=== PATIENT | female | born 1995 | race Caucasian/White ===

== ENCOUNTER 2020-09-04 13:47 | Outpatient (CLI) | payer OTHER ==
[2020-09-04 15:04] LABS: BASOPHILS % (AUTO) 0.3 %; EOSINOPHILS # (AUTO) 0.2 10^3/uL (0.0-0.7); EOSINOPHILS % (AUTO) 3.4 %; HGB - HEMOGLOBIN 13.4 g/dL (12.0-16.0); LYMPHOCYTES # (AUTO) 1.4 10^3/uL (1.5-3.5); LYMPHOCYTES % (AUTO) 21.9 %; MEAN CORPUSCULAR HEMOGLOBIN 31.7 pg (27.0-31.0); MEAN CORPUSCULAR HGB CONC 34.4 g/dL (32.0-36.0); MEAN CORPUSCULAR VOLUME 92.2 fL (81.0-99.0); MEAN PLATELET VOLUME 10.9 fL (7.9-10.8); MONOCYTES # (AUTO) 0.8 10^3/uL (0.0-1.0); MONOCYTES % (AUTO) 12.1 %; PLT - PLATELET COUNT 138 10^3/uL (130-450); RED BLOOD COUNT 4.23 10^6/uL (4.20-5.40); RED CELL DISTRIBUTION WIDTH 12.2 % (12.0-15.0); WHITE BLOOD COUNT 6.4 x10^3/uL (4.8-10.8)
[2020-09-04 15:14] VITALS: BP 115/74
[2020-09-04 15:16] LABS: ALBUMIN/GLOBULIN RATIO 0.8 (1.0-2.2); BILIRUBIN,TOTAL 0.5 mg/dL (0.2-1.0); CREATININE 0.5 mg/dL (0.4-1.0); TOTAL PROTEIN 6.6 g/dL (6.7-8.2); URIC ACID 3.9 mg/dL (2.6-7.2)
[2020-09-04 15:26] LABS: CREATININE,URINE 82.7 mg/dL; PROTEIN/CREATININE RATIO,URINE 0.1 (<=0.2)
--- NOTE | 2020-09-04 18:19 | PREOP HISTORY & PHYSICAL ---
DATE OF SERVICE: 09/04/2020 Physician: Brian Salas MD IDENTIFICATION: Patient is a 25-year-old, G1, P0 female whose EDC is 10/11. This makes her 34 weeks and 5 days. She states she had early visits for determination of her due date. Her OB records are not available to us at this particular time. CHIEF COMPLAINT: Headache. HISTORY OF PRESENT ILLNESS: Patient states over the last week she has had difficulty with headaches. Denies any scotoma at this time. She has tried Tylenol without any success. She called the clinic at [facility] and was told to come to the nearest OB department for evaluation. She denies any history of preeclampsia or hypertension during her . She has been noted to have platele ts, the lowest of which was in the 140s. She relates that her blood sugar test was normal. She is c urrently not on a glucometer, blood sugar medicine or diet. This would also be confirmatory to this. The remainder of her labs are not available. PAST MEDICAL HISTORY: Patient denies any hypertensive, diabetic, cardiac disease. She does have ast hma. 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 She was told at that time that she would need to have section. ALLERGIES 1. PENICILLIN. 2. SULFA. CURRENT MEDICATIONS 1. vitamins. 2. She is currently taking Zoloft 100 mg. 3. AeroChamber. 4. She also takes fluconazole. 5. Albuterol. 6. Pepcid. 7. Vitamin D. 8. ProAir. HABITS: Patient denies use of alcohol, tobacco, street or addictive drugs. SOCIAL HISTORY: Patient is a housewife. She lives with her who is active duty [employer]. PHYSICAL EXAMINATION VITAL SIGNS: Blood pressure on admission was 130/90, however, the remainder of them all have remaine d in the 120s over 70s. heart strip has been noted to be reactive. GENERAL: Patient is a well-developed, well-nourished female, in no acute distress at this time. HEENT: Pupils equal, round. Extraocular muscles are intact. CARDIOVASCULAR: Regular rate and rhythm without murmurs. LUNGS: Lung oates are clear without rales or wheezes. ABDOMEN: Gravid, nontender. DTRs are within normal limits. LABORATORY DATA: Creatinine is 0.5, uric acid is 3.9. ALT, AST are also noted to be normal. Hemogl obin is 13.4, hematocrit 39.0, and platelets were 139, white count is 6.4, protein-creatinine ratio i s 0.1. IMPRESSION: A 34-week gestation without evidence of preeclampsia. PLAN: We will have patient follow up with her OB providers in [place]. Should she have recurrence , she may be seen here. TD: 09/04/2020 16:43
--- NOTE | 2020-09-28 10:52 | PROCEDURE REPORT ---
- HPI Diagnosis/Indication for NST: Other (head ach) Current EDU 10/11/20 Gestation 34 Weeks and 5 Days 1 Para 0 Vital Signs Heart Rate 79 09/04/20 14:00 Respiratory Rate 18 09/04/20 14:00 Blood Pressure 125/84 H 09/04/20 14:00 O2 Saturation 98 09/04/20 14:00 Temperature 36.5 C 09/04/20 14:03 Heart Rate 70 09/04/20 15:00 Respiratory Rate 18 09/04/20 15:00 Blood Pressure 115/74 09/04/20 15:00 O2 Saturation 98 09/04/20 15:00 - NST Procedure NST Procedure Start Date 09/04/20 Start Time 13:58 Stop Time 14:58 Vibroacoustic Stimulation Used No Patient States Movement Yes: decreased today - Results and Plan Findings/Impression: reactive NST BP 120's/70's Plan: Labs and BP normal. KATZ improved with tylenol. send home with precautions.
== END 2020-09-04 16:45 | disposition home or self-care (01) ==
LOC: WFO 13:47 → FBP 13:49 → WFO 16:45
PROVIDERS: ATTEND Obstetrics & Gynecology
DX: O99.891 Other specified diseases and conditions complicating pregnancy (principal); R51.9 Headache, unspecified; Z79.899 Other long term (current) drug therapy
CPT/HCPCS: 36415; 59025; 80053; 82570; 84156; 84550; 85025; 99213

== ENCOUNTER 2020-09-26 15:04 | Outpatient (CLI) | payer OTHER ==
[2020-09-26 16:20] LABS: BASOPHILS % (AUTO) 0.4 %; EOSINOPHILS # (AUTO) 0.2 10^3/uL (0.0-0.7); EOSINOPHILS % (AUTO) 3.3 %; HGB - HEMOGLOBIN 13.6 g/dL (12.0-16.0); LYMPHOCYTES # (AUTO) 1.5 10^3/uL (1.5-3.5); LYMPHOCYTES % (AUTO) 21.2 %; MEAN CORPUSCULAR HEMOGLOBIN 32.1 pg (27.0-31.0); MEAN CORPUSCULAR HGB CONC 34.7 g/dL (32.0-36.0); MEAN CORPUSCULAR VOLUME 92.5 fL (81.0-99.0); MEAN PLATELET VOLUME 11.4 fL (7.9-10.8); MONOCYTES # (AUTO) 0.7 10^3/uL (0.0-1.0); MONOCYTES % (AUTO) 10.4 %; NEUTROPHILS # (AUTO) 4.5 10^3/uL (1.5-6.6); NEUTROPHILS % (AUTO) 64.3 %; PLT - PLATELET COUNT 127 10^3/uL (130-450); RED BLOOD COUNT 4.24 10^6/uL (4.20-5.40); RED CELL DISTRIBUTION WIDTH 12.5 % (12.0-15.0)
[2020-09-26 16:30] LABS: ALBUMIN/GLOBULIN RATIO 0.9 (1.0-2.2); BILIRUBIN,TOTAL 0.5 mg/dL (0.2-1.0); CREATININE 0.7 mg/dL (0.4-1.0); TOTAL PROTEIN 6.5 g/dL (6.7-8.2); URIC ACID 4.6 mg/dL (2.6-7.2)
[2020-09-26 16:58] LABS: CREATININE,URINE 96.7 mg/dL; PROTEIN/CREATININE RATIO,URINE 0.1 (<=0.2)
[2020-09-26 17:05] VITALS: BP 111/76
--- NOTE | 2020-10-05 18:37 | PROVIDER PROGRESS NOTE ---
- HPI Chief Complaint: Other Current : Current EDU 10/11/20 Gestation 37 Weeks and 6 Days 1 Para 0 Vital Signs Temperature 98.2 F 09/26/20 15:05 Temperature 98.2 F 09/26/20 15:18 Heart Rate 73 09/26/20 17:00 Respiratory Rate 17 09/26/20 16:39 Blood Pressure 111/76 09/26/20 17:00 O2 Saturation 100 09/26/20 17:00 - Exam GEN: NAD HEENT: NCAT CV: RRR RESP: CTAB ABD: gravid, S&NT/NR EXT: WWP SVE /2 station EFM : 130 mod kisha 15x15 accels no decels TOCO: irreg - Procedures OB Procedure Performed: NST NST Procedure: NST Procedure Start Date 09/26/20 Start Time 15:11 Stop Time 14:58 Patient States Movement Yes EFM: 130 mod kisha 15x15 accels no decel TOCO: Irreg - Plan Plan: Pt is a 25 yo at 37+ 6 wga here for eval of KATZ and found to be cherie. Followed by provider in [place]. Had been told that she needed a CS since childhood after undergoing ureteral implantation procedures. The plan was to present in [place] for CS. She also reports thrombocytopenia. She had a headache that was not resolving with tylenol and patient presents for PIH assessment. I reviewed 197 pages of her outside records. While it is not clear that patient needs to have a CS, [facility]FM offered a CS. They do recommend delivering at a facility with in-house Urology. Plts have been on the low end of normal at every assessment. They are low on today's labs at 127 PE as above BPs wnl KATZ resolved. Noted to be cherie on monitor No change in SVE Cat I tracing Recommend helicopter coverage in the event that she has to be transferred for delivery Reassured regarding PIH labs No evidence of active labor at present Reviewed warning signs and plans for transfer is she presents in active labor. Voiced understanding DC to home
== END 2020-09-26 17:40 | disposition home or self-care (01) ==
LOC: WFO 15:04 → FBP 15:06 → WFO 17:40
PROVIDERS: ATTEND Obstetrics & Gynecology
DX: O99.891 Other specified diseases and conditions complicating pregnancy (principal); G44.89 Other headache syndrome; O99.113 Other diseases of the blood and blood-forming organs and certain disorders involving the immune mechanism complicating pregnancy, third trimester; D69.6 Thrombocytopenia, unspecified; Z3A.37 37 weeks gestation of pregnancy; Z87.448 Personal history of other diseases of urinary system
CPT/HCPCS: 36415; 59025; 80053; 82570; 83615; 84156; 84450; 84550; 85025; 99214

== ENCOUNTER 2022-09-25 11:00 | Emergency (ER) | payer OTHER ==
[2022-09-25] MEDS ORDERED: SODIUM CHLORIDE 0.9% 1,000 ML IV STA ×2 (11:23→13:45)
[2022-09-25 11:43] LABS: GLUCOSE, URINE (UA) NEGATIVE (NEGATIVE); KETONES,URINE (UA) >=80 mg/dL (NEGATIVE); LEUKOCYTE ESTERASE, URINE NEGATIVE (NEGATIVE); NITRITE,URINE NEGATIVE (NEGATIVE); OCCULT BLOOD,URINE NEGATIVE (NEGATIVE); PROTEIN,URINE 30 mg/dL (NEGATIVE); UROBILINOGEN,URINE 0.2 (NORMAL) E.U./dL (NORMAL)
[2022-09-25 11:44] LABS: CLARITY,URINE CLEAR (CLEAR)
--- OUTSIDE RECORDS SUMMARY | 2022-09-25 11:46 | EXTERNAL MEDICAL SUMMARY RPT | Continuity of Care Document ---
:1995 Author Organization [facility] Address [address] [place] [address] Phone Care Team Providers Name Role Phone Gustavo Díaz Unavailable Unavailable Allergies No information. Encounters No information. Functional Status No information. Immunizations No information. Medications date description facility [id number] [facility] Problems No information. Procedures No information. Results/Labs test date author facility value unit interpret ation Result panel 1 (unknown) (no (unknown) (unknown) (no value) (units (unk nown) date) unknown) (unknown) (no (unknown) (unknown) (no value) (units (unk nown) date) unknown) (unknown) (no (unknown) (unknown) [place], [place] (units ( unknown) date) [id number] unknown) (unknown) (no (unknown) (unknown) Draft (units (unkno wn) date) unknown) (unknown) (no (unknown) (unknown) [facility] (units (unknown) date) Office Visit unknown) (unknown) (no (unknown) (unknown) [facility] (units ([facility] date[facility] unknown) (unknown) (no (unknown) (unknown) (no value) (units (unk nown) date) unknown) (unknown) (no (unknown) (unknown) 07/02/22 (units (unkno wn) date) unknown) (unknown) (no (unknown) (unknown) 27-year-old (units (un known) date) female presents unknown) to follow-up on anxiety and depression. We saw her (unknown) (no (unknown) (unknown) [id number] (units (unkno wn) date) unknown) (unknown) (no (unknown) (unknown) Age/Sex: 27 / F (units (unknown) date) Date of Service: unknown) (unknown) (no (unknown) (unknown) Allergies (units (unkn own) date) unknown) (unknown) (no (unknown) (unknown) Anxiety (units (unkno wn) date) unknown) (unknown) (no (unknown) (unknown) Anxiety and (units (unk nown) date) depression:? unknown) Doing relatively well on regimen.? We discussed options (unknown) (no (unknown) (unknown) Attending Dr: (units ( unknown) date) Gustavo BRICENO unknown) (unknown) (no (unknown) (unknown) Chief Complaint (units (unknown) date) unknown) (unknown) (no (unknown) (unknown) Chief Complaint: (units (unknown) date) Follow-up unknown) anxiety/depressio n (unknown) (no (unknown) (unknown) Counseled on (units (u nknown) date) administration/ri unknown) sks/benefits/side effects of medication.? Patient (unknown) (no (unknown) (unknown) : 1995 (units (unknown) date) Acct:[id number] unknown) (unknown) (no (unknown) (unknown) Depression (units (unk nown) date) unknown) (unknown) (no (unknown) (unknown) Dept at (units (unkno wn) date) . unknown) (unknown) (no (unknown) (unknown) Details: (units (unkno wn) date) unknown) (unknown) (no (unknown) (unknown) Documented By: (units (unknown) date) Gustavo Díaz unknown) 07/02/22 1415 (unknown) (no (unknown) (unknown) [place] until (units ( unknown) date) she has completed unknown) the program.? I advised she consider working (unknown) (no (unknown) (unknown) GERD (units (unkno wn) date) (gastroesophageal unknown) reflux disease) (2019) (unknown) (no (unknown) (unknown) HPI (units (unkno wn) date) unknown) (unknown) (no (unknown) (unknown) Insomnia (units (unkno wn) date) unknown) (unknown) (no (unknown) (unknown) Insomnia:? (units (unkn own) date) Discussed options unknown) and agreed to switch from gabapentin to trazodone.? (unknown) (no (unknown) (unknown) Intake (units (unkno wn) date) unknown) (unknown) (no (unknown) (unknown) Irregular (units (unkn own) date) menstrual unknown) bleeding (10/2021) (unknown) (no (unknown) (unknown) Loc: [facility] (units (unkno wn) date) unknown) (unknown) (no (unknown) (unknown) Medical History (units (unknown) date) (Reviewed unknown) 06/18/22 @ 14:32 by JANAK Melendez) (unknown) (no (unknown) (unknown) Moderate (units (unkno wn) date) intermittent unknown) asthma (unknown) (no (unknown) (unknown) Moderate (units (unkno wn) date) persistent asthma unknown) (unknown) (no (unknown) (unknown) PFSH (units (unkno wn) date) unknown) (unknown) (no (unknown) (unknown) Parent, patient (units (unknown) date) were present in unknown) their home in [place], [place]. (unknown) (no (unknown) (unknown) Patient (units (unkno wn) date) consented to unknown) receive services via teleheath. (unknown) (no (unknown) (unknown) Patient: (units (unkno wn) date) Elizabeth Chery unknown) MR#: [id number] (unknown) (no (unknown) (unknown) Penicillins (units (un known) date) Allergy (Unknown, unknown) Verified 05/01/22 14:04) (unknown) (no (unknown) (unknown) Pristiq than (units (u nknown) date) when she was on unknown) venlafaxine XR. Overall feels her anxiety and (unknown) (no (unknown) (unknown) Pristiq. Plan (units ( unknown) date) was for a unknown) follow-up visit in about 4-6 weeks which is still (unknown) (no (unknown) (unknown) Provider was (units (u nknown) date) present in her unknown) office in [place], [place]. (unknown) (no (unknown) (unknown) Real-time (units (unkn own) date) synchronous unknown) services were performed using the [employer] platform. (unknown) (no (unknown) (unknown) Reason For Visit (units (unknown) date) unknown) (unknown) (no (unknown) (unknown) Signed By: (units (unk nown) date) unknown) (unknown) (no (unknown) (unknown) Skin wound from (units (unknown) date) surgical incision unknown) (unknown) (no (unknown) (unknown) Smoking Status: (units (unknown) date) Never smoker unknown) (unknown) (no (unknown) (unknown) States that (units (un known) date) there was an unknown) instance not long ago when their basement light was (unknown) (no (unknown) (unknown) Sulfa (units (unkno wn) date) (Sulfonamide unknown) Antibiotics) Allergy (Unknown, Verified 05/01/22 14:04) (unknown) (no (unknown) (unknown) This note may (units ( unknown) date) have been all or unknown) partially generated using voice recognition (unknown) (no (unknown) (unknown) Tobacco + (units (unkn own) date) Substance Use unknown) (unknown) (no (unknown) (unknown) Tobacco Status (units (unknown) date) unknown) (unknown) (no (unknown) (unknown) Visit Reasons: (units (unknown) date) VIDEO MED F/U unknown) (unknown) (no (unknown) (unknown) alcohol intake: (units (unknown) date) never unknown) (unknown) (no (unknown) (unknown) already has a (units ( unknown) date) follow-up unknown) appointment scheduled on July 02 and we will re- (unknown) (no (unknown) (unknown) and agreed to (units ( unknown) date) continue unknown) regimen.? She will continue psychotherapy with Jennifer (unknown) (no (unknown) (unknown) and not (units (unkno wn) date) interrupting her unknown) sleep; notes that her difficulty sleeping seems to her (unknown) (no (unknown) (unknown) appointment. (units (u nknown) date) unknown) (unknown) (no (unknown) (unknown) are seeing her (units ( unknown) date) for a sooner unknown) follow-up than anticipated. Patient actually states (unknown) (no (unknown) (unknown) depression are (units (unknown) date) reasonably well unknown) controlled right now. She is still not sleeping (unknown) (no (unknown) (unknown) evaluate at that (units (unknown) date) time.? Follow-up unknown) as needed for problems prior to the (unknown) (no (unknown) (unknown) found on when (units ( unknown) date) they had not been unknown) down there so suspected an intruder; outside of (unknown) (no (unknown) (unknown) have occurred. (units (unknown) date) If there are any unknown) questions, please contact the Medical Records (unknown) (no (unknown) (unknown) interested in (units (u nknown) date) switching from unknown) gabapentin to trazodone. Her baby is sleeping well (unknown) (no (unknown) (unknown) last about 3 (units (u nknown) date) weeks ago. At unknown) that time we switched from venlafaxine XR to (unknown) (no (unknown) (unknown) may occur. (units (unk nown) date) Occasional unknown) wrong-word or 'sound-alike' substitutions may have (unknown) (no (unknown) (unknown) occurred due to (units (unknown) date) the inherent unknown) limitations of voice recognition software. Please (unknown) (no (unknown) (unknown) read the note (units ( unknown) date) carefully and unknown) recognize, using context, where these substitutions (unknown) (no (unknown) (unknown) regarding (units (unkn own) date) intruders.? unknown) (unknown) (no (unknown) (unknown) scheduled, but (units (unknown) date) it looks like unknown) today's visit had all ready been scheduled so we (unknown) (no (unknown) (unknown) second hand (units (un known) date) exposure: No unknown) (unknown) (no (unknown) (unknown) software. (units (unkn own) date) Although every unknown) effort is made to edit content, sign erector errors (unknown) (no (unknown) (unknown) substance use (units ( unknown) date) type: does not unknown) use (unknown) (no (unknown) (unknown) switched to the (units (unknown) date) high dose of unknown) Pristiq. Does note slightly less sweating on the (unknown) (no (unknown) (unknown) that she feels (units (unknown) date) quite good. She unknown) believes that perhaps at the time of the last (unknown) (no (unknown) (unknown) this, no history (units (unknown) date) of having been a unknown) victim of a break in. (unknown) (no (unknown) (unknown) to be related to (units (unknown) date) a ?paranoia? unknown) about the possibility of intruders in the house. (unknown) (no (unknown) (unknown) to feel the (units (un known) date) beneficial unknown) effects and that she continues to feel good having (unknown) (no (unknown) (unknown) visit she simply (units (unknown) date) had not been on unknown) the high dose of venlafaxine XR for long enough (unknown) (no (unknown) (unknown) well. She does (units (unknown) date) not feel that the unknown) gabapentin has really helped much and is (unknown) (no (unknown) (unknown) with a therapist (units (unknown) date) for longer-term unknown) psychotherapy to address her issues with worry Result panel 2 (unknown) (no (unknown) (unknown) (no value) (units (unk nown) date) unknown) (unknown) (no (unknown) (unknown) Medications: (units (u nknown) date) unknown) (unknown) (no (unknown) (unknown) (no value) (units (unk nown) date) unknown) (unknown) (no (unknown) (unknown) [facility] (units ( unknown) date) [id number] unknown) (unknown) (no (unknown) (unknown) Draft (units (unkno wn) date) unknown) (unknown) (no (unknown) (unknown) Family Practice (units (unknown) date) Office Visit unknown) (unknown) (no (unknown) (unknown) [facility]units ([facility] date[facility] unknown) (unknown) (no (unknown) (unknown) If 1 tab (units (unkno wn) date) ineffective, may unknown) take 2 tabs at bedtime as needed for sleep 50 mg (unknown) (no (unknown) (unknown) (no value) (units (unk nown) date) unknown) (unknown) (no (unknown) (unknown) 07/02/22 (units (unkno wn) date) unknown) (unknown) (no (unknown) (unknown) 27-year-old (units (un known) date) female presents unknown) to follow-up on anxiety and depression. We saw her (unknown) (no (unknown) (unknown) [id number] (units (unkno wn) date) unknown) (unknown) (no (unknown) (unknown) Age/Sex: 27 / F (units (unknown) date) Date of Service: unknown) (unknown) (no (unknown) (unknown) Allergies (units (unkn own) date) unknown) (unknown) (no (unknown) (unknown) Anxiety (units (unkno wn) date) unknown) (unknown) (no (unknown) (unknown) Anxiety and (units (unk nown) date) depression:? unknown) Doing relatively well on regimen.? We discussed options (unknown) (no (unknown) (unknown) Assessment + (units (u nknown) date) Plan unknown) (unknown) (no (unknown) (unknown) Attending Dr: (units ( unknown) date) Gustavo BRICENO unknown) (unknown) (no (unknown) (unknown) Changed (units (unkno wn) date) unknown) (unknown) (no (unknown) (unknown) Chief Complaint (units (unknown) date) unknown) (unknown) (no (unknown) (unknown) Chief Complaint: (units (unknown) date) Follow-up unknown) anxiety/depressio n (unknown) (no (unknown) (unknown) Counseled on (units (u nknown) date) administration/ri unknown) sks/benefits/side effects of medication.? Patient (unknown) (no (unknown) (unknown) : 1995 (units (unknown) date) Acct:[id number] unknown) (unknown) (no (unknown) (unknown) Depression (units (unk nown) date) unknown) (unknown) (no (unknown) (unknown) Dept at (units (unkno wn) date) . unknown) (unknown) (no (unknown) (unknown) Details: (units (unkno wn) date) unknown) (unknown) (no (unknown) (unknown) Documented By: (units (unknown) date) Gustavo Díaz unknown) 07/02/22 1415 (unknown) (no (unknown) (unknown) [place] until (units ( unknown) date) she has completed unknown) the program.? I advised she consider working (unknown) (no (unknown) (unknown) From trazodone (units (unknown) date) unknown) (unknown) (no (unknown) (unknown) GERD (units (unkno wn) date) (gastroesophageal unknown) reflux disease) (2019) (unknown) (no (unknown) (unknown) HPI (units (unkno wn) date) unknown) (unknown) (no (unknown) (unknown) Insomnia (units (unkno wn) date) unknown) (unknown) (no (unknown) (unknown) Insomnia:? (units (unkn own) date) Discussed options unknown) and agreed to switch from gabapentin to trazodone.? (unknown) (no (unknown) (unknown) Intake (units (unkno wn) date) unknown) (unknown) (no (unknown) (unknown) Irregular (units (unkn own) date) menstrual unknown) bleeding (10/2021) (unknown) (no (unknown) (unknown) L ear worse, (units (u nknown) date) seems to have unknown) hearing problem no noise exposure. noticed. (unknown) (no (unknown) (unknown) Loc: [facility] (units (unkno wn) date) unknown) (unknown) (no (unknown) (unknown) Medical History (units (unknown) date) (Reviewed unknown) 06/18/22 @ 14:32 by JANAK Melendez) (unknown) (no (unknown) (unknown) Moderate (units (unkno wn) date) intermittent unknown) asthma (unknown) (no (unknown) (unknown) Moderate (units (unkno wn) date) persistent asthma unknown) (unknown) (no (unknown) (unknown) PFSH (units (unkno wn) date) unknown) (unknown) (no (unknown) (unknown) PO BEDTIME PRN (units (unknown) date) 10 tabs 3RF sleep unknown) (unknown) (no (unknown) (unknown) Parent, patient (units (unknown) date) were present in unknown) their home in [place], [place]. (unknown) (no (unknown) (unknown) Patient (units (unkno wn) date) consented to unknown) receive services via teleheath. (unknown) (no (unknown) (unknown) Patient: (units (unkno wn) date) Elizabeth Chery unknown) MR#: [id number] (unknown) (no (unknown) (unknown) Penicillins (units (un known) date) Allergy (Unknown, unknown) Verified 05/01/22 14:04) (unknown) (no (unknown) (unknown) Pristiq than (units (u nknown) date) when she was on unknown) venlafaxine XR. Overall feels her anxiety and (unknown) (no (unknown) (unknown) Pristiq. Plan (units ( unknown) date) was for a unknown) follow-up visit in about 4-6 weeks which is still (unknown) (no (unknown) (unknown) Provider was (units (u nknown) date) present in her unknown) office in [place], [place]. (unknown) (no (unknown) (unknown) Real-time (units (unkn own) date) synchronous unknown) services were performed using the [employer] platform. (unknown) (no (unknown) (unknown) Reason For Visit (units (unknown) date) unknown) (unknown) (no (unknown) (unknown) Signed By: (units (unk nown) date) unknown) (unknown) (no (unknown) (unknown) Skin wound from (units (unknown) date) surgical incision unknown) (unknown) (no (unknown) (unknown) Smoking Status: (units (unknown) date) Never smoker unknown) (unknown) (no (unknown) (unknown) States that (units (un known) date) there was an unknown) instance not long ago when their basement light was (unknown) (no (unknown) (unknown) Sulfa (units (unkno wn) date) (Sulfonamide unknown) Antibiotics) Allergy (Unknown, Verified 05/01/22 14:04) (unknown) (no (unknown) (unknown) This note may (units ( unknown) date) have been all or unknown) partially generated using voice recognition (unknown) (no (unknown) (unknown) To trazodone 100 (units (unknown) date) mg (2 x 50 mg) PO unknown) BEDTIME PRN 180 tabs 1RF sleep (unknown) (no (unknown) (unknown) Tobacco + (units (unkn own) date) Substance Use unknown) (unknown) (no (unknown) (unknown) Tobacco Status (units (unknown) date) unknown) (unknown) (no (unknown) (unknown) Visit Reasons: (units (unknown) date) VIDEO MED F/U unknown) (unknown) (no (unknown) (unknown) alcohol intake: (units (unknown) date) never unknown) (unknown) (no (unknown) (unknown) already has a (units ( unknown) date) follow-up unknown) appointment scheduled on July 02 and we will re- (unknown) (no (unknown) (unknown) and agreed to (units ( unknown) date) continue unknown) regimen.? She will continue psychotherapy with Jennifer (unknown) (no (unknown) (unknown) and not (units (unkno wn) date) interrupting her unknown) sleep; notes that her difficulty sleeping seems to her (unknown) (no (unknown) (unknown) appointment. (units (u nknown) date) unknown) (unknown) (no (unknown) (unknown) are seeing her (units ( unknown) date) for a sooner unknown) follow-up than anticipated. Patient actually states (unknown) (no (unknown) (unknown) depression are (units (unknown) date) reasonably well unknown) controlled right now. She is still not sleeping (unknown) (no (unknown) (unknown) due for pap will (units (unknown) date) schedule wwe/pap unknown) (unknown) (no (unknown) (unknown) evaluate at that (units (unknown) date) time.? Follow-up unknown) as needed for problems prior to the (unknown) (no (unknown) (unknown) found on when (units ( unknown) date) they had not been unknown) down there so suspected an intruder; outside of (unknown) (no (unknown) (unknown) have occurred. (units (unknown) date) If there are any unknown) questions, please contact the Medical Records (unknown) (no (unknown) (unknown) interested in (units (u nknown) date) switching from unknown) gabapentin to trazodone. Her baby is sleeping well (unknown) (no (unknown) (unknown) last about 3 (units (u nknown) date) weeks ago. At unknown) that time we switched from venlafaxine XR to (unknown) (no (unknown) (unknown) may occur. (units (unk nown) date) Occasional unknown) wrong-word or 'sound-alike' substitutions may have (unknown) (no (unknown) (unknown) occurred due to (units (unknown) date) the inherent unknown) limitations of voice recognition software. Please (unknown) (no (unknown) (unknown) read the note (units ( unknown) date) carefully and unknown) recognize, using context, where these substitutions (unknown) (no (unknown) (unknown) regarding (units (unkn own) date) intruders.? unknown) (unknown) (no (unknown) (unknown) scheduled, but (units (unknown) date) it looks like unknown) today's visit had all ready been scheduled so we (unknown) (no (unknown) (unknown) second hand (units (un known) date) exposure: No unknown) (unknown) (no (unknown) (unknown) software. (units (unkn own) date) Although every unknown) effort is made to edit content, sign erector errors (unknown) (no (unknown) (unknown) substance use (units ( unknown) date) type: does not unknown) use (unknown) (no (unknown) (unknown) switched to the (units (unknown) date) high dose of unknown) Pristiq. Does note slightly less sweating on the (unknown) (no (unknown) (unknown) that she feels (units (unknown) date) quite good. She unknown) believes that perhaps at the time of the last (unknown) (no (unknown) (unknown) this, no history (units (unknown) date) of having been a unknown) victim of a break in. (unknown) (no (unknown) (unknown) to be related to (units (unknown) date) a ?paranoia? unknown) about the possibility of intruders in the house. (unknown) (no (unknown) (unknown) to feel the (units (un known) date) beneficial unknown) effects and that she continues to feel good having (unknown) (no (unknown) (unknown) visit she simply (units (unknown) date) had not been on unknown) the high dose of venlafaxine XR for long enough (unknown) (no (unknown) (unknown) well. She does (units (unknown) date) not feel that the unknown) gabapentin has really helped much and is (unknown) (no (unknown) (unknown) with a therapist (units (unknown) date) for longer-term unknown) psychotherapy to address her issues with worry Result panel 3 (unknown) (no (unknown) (unknown) (no value) (units (unk nown) date) unknown) (unknown) (no (unknown) (unknown) Medications: (units (u nknown) date) unknown) (unknown) (no (unknown) (unknown) Orders: (units (unkno wn) date) unknown) (unknown) (no (unknown) (unknown) (no value) (units (unk nown) date) unknown) (unknown) (no (unknown) (unknown) [facility] [place] (units ( unknown) date) [id number] unknown) (unknown) (no (unknown) (unknown) Draft (units (unkno wn) date) unknown) (unknown) (no (unknown) (unknown) Family Practice (units (unknown) date) Office Visit unknown) (unknown) (no (unknown) (unknown) [facility]units ([facility] date[facility] unknown) (unknown) (no (unknown) (unknown) If 1 tab (units (unkno wn) date) ineffective, may unknown) take 2 tabs at bedtime as needed for sleep 50 mg (unknown) (no (unknown) (unknown) (no value) (units (unk nown) date) unknown) (unknown) (no (unknown) (unknown) (1) Hearing (units (un known) date) loss: unknown) (unknown) (no (unknown) (unknown) 07/02/22 (units (unkno wn) date) unknown) (unknown) (no (unknown) (unknown) 27-year-old (units (un known) date) female presents unknown) to follow-up on anxiety and depression. We saw her (unknown) (no (unknown) (unknown) [id number] (units (unkno wn) date) unknown) (unknown) (no (unknown) (unknown) Age/Sex: 27 / F (units (unknown) date) Date of Service: unknown) (unknown) (no (unknown) (unknown) Allergies (units (unkn own) date) unknown) (unknown) (no (unknown) (unknown) Anxiety (units (unkno wn) date) unknown) (unknown) (no (unknown) (unknown) Anxiety and (units (unk nown) date) depression:? unknown) Doing relatively well on regimen.? We discussed options (unknown) (no (unknown) (unknown) Assessment + (units (u nknown) date) Plan unknown) (unknown) (no (unknown) (unknown) Attending Dr: (units ( unknown) date) Gustavo BRICENO unknown) (unknown) (no (unknown) (unknown) Changed (units (unkno wn) date) unknown) (unknown) (no (unknown) (unknown) Chief Complaint (units (unknown) date) unknown) (unknown) (no (unknown) (unknown) Chief Complaint: (units (unknown) date) Follow-up unknown) anxiety/depressio n (unknown) (no (unknown) (unknown) Counseled on (units (u nknown) date) administration/ri unknown) sks/benefits/side effects of medication.? Patient (unknown) (no (unknown) (unknown) : 1995 (units (unknown) date) Acct:[id number] unknown) (unknown) (no (unknown) (unknown) Depression (units (unk nown) date) unknown) (unknown) (no (unknown) (unknown) Dept at (units (unkno wn) date) . unknown) (unknown) (no (unknown) (unknown) Details: (units (unkno wn) date) unknown) (unknown) (no (unknown) (unknown) Documented By: (units (unknown) date) Gustavo Díaz unknown) 07/02/22 1415 (unknown) (no (unknown) (unknown) [place] until (units ( unknown) date) she has completed unknown) the program.? I advised she consider working (unknown) (no (unknown) (unknown) From trazodone (units (unknown) date) unknown) (unknown) (no (unknown) (unknown) GERD (units (unkno wn) date) (gastroesophageal unknown) reflux disease) (2019) (unknown) (no (unknown) (unknown) HPI (units (unkno wn) date) unknown) (unknown) (no (unknown) (unknown) Insomnia (units (unkno wn) date) unknown) (unknown) (no (unknown) (unknown) Insomnia:? (units (unkn own) date) Discussed options unknown) and agreed to switch from gabapentin to trazodone.? (unknown) (no (unknown) (unknown) Intake (units (unkno wn) date) unknown) (unknown) (no (unknown) (unknown) Irregular (units (unkn own) date) menstrual unknown) bleeding (10/2021) (unknown) (no (unknown) (unknown) L ear worse, (units (u nknown) date) seems to have unknown) hearing problem no noise exposure. noticed. (unknown) (no (unknown) (unknown) Loc: [facility] (units (unkno wn) date) unknown) (unknown) (no (unknown) (unknown) Medical History (units (unknown) date) (Reviewed unknown) 06/18/22 @ 14:32 by JANAK Melendez) (unknown) (no (unknown) (unknown) Moderate (units (unkno wn) date) intermittent unknown) asthma (unknown) (no (unknown) (unknown) Moderate (units (unkno wn) date) persistent asthma unknown) (unknown) (no (unknown) (unknown) PFSH (units (unkno wn) date) unknown) (unknown) (no (unknown) (unknown) PO BEDTIME PRN (units (unknown) date) 10 tabs 3RF sleep unknown) (unknown) (no (unknown) (unknown) Parent, patient (units (unknown) date) were present in unknown) their home in [place], [place]. (unknown) (no (unknown) (unknown) Patient (units (unkno wn) date) consented to unknown) receive services via teleheath. (unknown) (no (unknown) (unknown) Patient: (units (unkno wn) date) Elizabeth Chery unknown) MR#: [id number] (unknown) (no (unknown) (unknown) Penicillins (units (un known) date) Allergy (Unknown, unknown) Verified 05/01/22 14:04) (unknown) (no (unknown) (unknown) Pristiq than (units (u nknown) date) when she was on unknown) venlafaxine XR. Overall feels her anxiety and (unknown) (no (unknown) (unknown) Pristiq. Plan (units ( unknown) date) was for a unknown) follow-up visit in about 4-6 weeks which is still (unknown) (no (unknown) (unknown) Provider was (units (u nknown) date) present in her unknown) office in [place], [place]. (unknown) (no (unknown) (unknown) Real-time (units (unkn own) date) synchronous unknown) services were performed using the [employer] platform. (unknown) (no (unknown) (unknown) Reason For Visit (units (unknown) date) unknown) (unknown) (no (unknown) (unknown) Referral (units (unkno wn) date) Audiology [id number] unknown) - Unspecified hearing loss, unspecified ear (unknown) (no (unknown) (unknown) Referrals (units (unkn own) date) unknown) (unknown) (no (unknown) (unknown) Signed By: (units (unk nown) date) unknown) (unknown) (no (unknown) (unknown) Skin wound from (units (unknown) date) surgical incision unknown) (unknown) (no (unknown) (unknown) Smoking Status: (units (unknown) date) Never smoker unknown) (unknown) (no (unknown) (unknown) States that (units (un known) date) there was an unknown) instance not long ago when their basement light was (unknown) (no (unknown) (unknown) Sulfa (units (unkno wn) date) (Sulfonamide unknown) Antibiotics) Allergy (Unknown, Verified 05/01/22 14:04) (unknown) (no (unknown) (unknown) This note may (units ( unknown) date) have been all or unknown) partially generated using voice recognition (unknown) (no (unknown) (unknown) To trazodone 100 (units (unknown) date) mg (2 x 50 mg) PO unknown) BEDTIME PRN 180 tabs 1RF sleep (unknown) (no (unknown) (unknown) Tobacco + (units (unkn own) date) Substance Use unknown) (unknown) (no (unknown) (unknown) Tobacco Status (units (unknown) date) unknown) (unknown) (no (unknown) (unknown) Visit Reasons: (units (unknown) date) VIDEO MED F/U unknown) (unknown) (no (unknown) (unknown) alcohol intake: (units (unknown) date) never unknown) (unknown) (no (unknown) (unknown) already has a (units ( unknown) date) follow-up unknown) appointment scheduled on July 02 and we will re- (unknown) (no (unknown) (unknown) and agreed to (units ( unknown) date) continue unknown) regimen.? She will continue psychotherapy with Jennifer (unknown) (no (unknown) (unknown) and not (units (unkno wn) date) interrupting her unknown) sleep; notes that her difficulty sleeping seems to her (unknown) (no (unknown) (unknown) appointment. (units (u nknown) date) unknown) (unknown) (no (unknown) (unknown) are seeing her (units ( unknown) date) for a sooner unknown) follow-up than anticipated. Patient actually states (unknown) (no (unknown) (unknown) depression are (units (unknown) date) reasonably well unknown) controlled right now. She is still not sleeping (unknown) (no (unknown) (unknown) due for pap will (units (unknown) date) schedule wwe/pap unknown) (unknown) (no (unknown) (unknown) evaluate at that (units (unknown) date) time.? Follow-up unknown) as needed for problems prior to the (unknown) (no (unknown) (unknown) found on when (units ( unknown) date) they had not been unknown) down there so suspected an intruder; outside of (unknown) (no (unknown) (unknown) have occurred. (units (unknown) date) If there are any unknown) questions, please contact the Medical Records (unknown) (no (unknown) (unknown) interested in (units (u nknown) date) switching from unknown) gabapentin to trazodone. Her baby is sleeping well (unknown) (no (unknown) (unknown) last about 3 (units (u nknown) date) weeks ago. At unknown) that time we switched from venlafaxine XR to (unknown) (no (unknown) (unknown) may occur. (units (unk nown) date) Occasional unknown) wrong-word or 'sound-alike' substitutions may have (unknown) (no (unknown) (unknown) occurred due to (units (unknown) date) the inherent unknown) limitations of voice recognition software. Please (unknown) (no (unknown) (unknown) read the note (units ( unknown) date) carefully and unknown) recognize, using context, where these substitutions (unknown) (no (unknown) (unknown) regarding (units (unkn own) date) intruders.? unknown) (unknown) (no (unknown) (unknown) scheduled, but (units (unknown) date) it looks like unknown) today's visit had all ready been scheduled so we (unknown) (no (unknown) (unknown) second hand (units (un known) date) exposure: No unknown) (unknown) (no (unknown) (unknown) software. (units (unkn own) date) Although every unknown) effort is made to edit content, sign erector errors (unknown) (no (unknown) (unknown) substance use (units ( unknown) date) type: does not unknown) use (unknown) (no (unknown) (unknown) switched to the (units (unknown) date) high dose of unknown) Pristiq. Does note slightly less sweating on the (unknown) (no (unknown) (unknown) that she feels (units (unknown) date) quite good. She unknown) believes that perhaps at the time of the last (unknown) (no (unknown) (unknown) this, no history (units (unknown) date) of having been a unknown) victim of a break in. (unknown) (no (unknown) (unknown) to be related to (units (unknown) date) a ?paranoia? unknown) about the possibility of intruders in the house. (unknown) (no (unknown) (unknown) to feel the (units (un known) date) beneficial unknown) effects and that she continues to feel good having (unknown) (no (unknown) (unknown) visit she simply (units (unknown) date) had not been on unknown) the high dose of venlafaxine XR for long enough (unknown) (no (unknown) (unknown) well. She does (units (unknown) date) not feel that the unknown) gabapentin has really helped much and is (unknown) (no (unknown) (unknown) with a therapist (units (unknown) date) for longer-term unknown) psychotherapy to address her issues with worry Result panel 4 (unknown) (no (unknown) (unknown) (no value) (units (unk nown) date) unknown) (unknown) (no (unknown) (unknown) Medications: (units (u nknown) date) unknown) (unknown) (no (unknown) (unknown) Orders: (units (unkno wn) date) unknown) (unknown) (no (unknown) (unknown) Qualifiers: (units (un known) date) unknown) (unknown) (no (unknown) (unknown) Status: Acute (units ( unknown) date) unknown) (unknown) (no (unknown) (unknown) (no value) (units (unk nown) date) unknown) (unknown) (no (unknown) (unknown) GenoaDEDRA alvarez (units ( unknown) date) [id number] unknown) (unknown) (no (unknown) (unknown) Depression Type: (units (unknown) date) major depressive unknown) disorder Major depression recurrence: (unknown) (no (unknown) (unknown) Draft (units (unkno wn) date) unknown) (unknown) (no (unknown) (unknown) Family Practice (units (unknown) date) Office Visit unknown) (unknown) (no (unknown) (unknown) [facility] ([facility] unknown) (unknown) (no (unknown) (unknown) If 1 tab (units (unkno wn) date) ineffective, may unknown) take 2 tabs at bedtime as needed for sleep 50 mg (unknown) (no (unknown) (unknown) Insomnia type: (units (unknown) date) unspecified unknown) Qualified Code(s): G47.00 - Insomnia, (unknown) (no (unknown) (unknown) (no value) (units (unk nown) date) unknown) (unknown) (no (unknown) (unknown) (1) Anxiety: (units (u nknown) date) unknown) (unknown) (no (unknown) (unknown) (2) Insomnia: (units ( unknown) date) unknown) (unknown) (no (unknown) (unknown) (3) Depression: (units (unknown) date) unknown) (unknown) (no (unknown) (unknown) (4) Hearing (units (un known) date) loss: unknown) (unknown) (no (unknown) (unknown) 07/02/22 (units (unkno wn) date) unknown) (unknown) (no (unknown) (unknown) 27-year-old (units (un known) date) female presents unknown) to follow-up on anxiety, depressed mood, insomnia. (unknown) (no (unknown) (unknown) [id number] (units (unkno wn) date) unknown) (unknown) (no (unknown) (unknown) Affect: normal (units (unknown) date) affect unknown) (unknown) (no (unknown) (unknown) Age/Sex: 27 / F (units (unknown) date) Date of Service: unknown) (unknown) (no (unknown) (unknown) All systems (units (un known) date) reviewed + are unknown) unremarkable except as noted in HPI and below (unknown) (no (unknown) (unknown) Allergies (units (unkn own) date) unknown) (unknown) (no (unknown) (unknown) Anxiety (units (unkno wn) date) unknown) (unknown) (no (unknown) (unknown) Anxiety and (units (unk nown) date) depression: Doing unknown) relatively well on regimen. We discussed options (unknown) (no (unknown) (unknown) Appearance: (units (un known) date) grossly normal unknown) (unknown) (no (unknown) (unknown) Assessment + (units (u nknown) date) Plan unknown) (unknown) (no (unknown) (unknown) Attending Dr: (units ( unknown) date) Gustavo BRICENO unknown) (unknown) (no (unknown) (unknown) Attitude: (units (unkn own) date) cooperative unknown) (unknown) (no (unknown) (unknown) Changed (units (unkno wn) date) unknown) (unknown) (no (unknown) (unknown) Chief Complaint (units (unknown) date) unknown) (unknown) (no (unknown) (unknown) Chief Complaint: (units (unknown) date) Follow-up unknown) anxiety/depressio n (unknown) (no (unknown) (unknown) Cognition: (units (unk nown) date) normal cognition unknown) (unknown) (no (unknown) (unknown) Const (units (unkno wn) date) unknown) (unknown) (no (unknown) (unknown) : 1995 (units (unknown) date) Acct:[id number] unknown) (unknown) (no (unknown) (unknown) Depression (units (unk nown) date) unknown) (unknown) (no (unknown) (unknown) Dept at (units (unkno wn) date) . unknown) (unknown) (no (unknown) (unknown) Details: (units (unkno wn) date) unknown) (unknown) (no (unknown) (unknown) Documented By: (units (unknown) date) Gustavo Díaz unknown) 07/02/22 1415 (unknown) (no (unknown) (unknown) [place] until (units ( unknown) date) she has completed unknown) the program. I advised she consider working (unknown) (no (unknown) (unknown) Effort + (units (unkno wn) date) Inspection: unknown) normal respiratory effort (unknown) (no (unknown) (unknown) Exam (units (unkno wn) date) unknown) (unknown) (no (unknown) (unknown) Eyes (units (unkno wn) date) unknown) (unknown) (no (unknown) (unknown) From trazodone (units (unknown) date) unknown) (unknown) (no (unknown) (unknown) GERD (units (unkno wn) date) (gastroesophageal unknown) reflux disease) (2019) (unknown) (no (unknown) (unknown) General: (units (unkno wn) date) appearance unknown) normal, both eyes and all related structures (unknown) (no (unknown) (unknown) General: (units (unkno wn) date) cooperative and unknown) no acute distress (unknown) (no (unknown) (unknown) General: patient (units (unknown) date) alert, patient unknown) awake and patient oriented x3 (unknown) (no (unknown) (unknown) HENMT (units (unkno wn) date) unknown) (unknown) (no (unknown) (unknown) HPI (units (unkno wn) date) unknown) (unknown) (no (unknown) (unknown) Head: normal to (units (unknown) date) inspection unknown) (unknown) (no (unknown) (unknown) Hearing loss: (units ( unknown) date) Refer to unknown) audiology. (unknown) (no (unknown) (unknown) Insomnia (units (unkno wn) date) unknown) (unknown) (no (unknown) (unknown) Insomnia: Doing (units (unknown) date) well on regimen, unknown) continue same. She intends to take 50 mg at (unknown) (no (unknown) (unknown) Intake (units (unkno wn) date) unknown) (unknown) (no (unknown) (unknown) Irregular (units (unkn own) date) menstrual unknown) bleeding (10/2021) (unknown) (no (unknown) (unknown) L ear worse, (units (u nknown) date) seems to have unknown) hearing problem no noise exposure. noticed. (unknown) (no (unknown) (unknown) Loc: [facility] (units (unkno wn) date) unknown) (unknown) (no (unknown) (unknown) Medical History (units (unknown) date) (Reviewed unknown) 07/02/22 @ 14:54 by JANAK Melendez) (unknown) (no (unknown) (unknown) Mental Status: (units (unknown) date) mental status unknown) grossly normal (unknown) (no (unknown) (unknown) Moderate (units (unkno wn) date) intermittent unknown) asthma (unknown) (no (unknown) (unknown) Moderate (units (unkno wn) date) persistent asthma unknown) (unknown) (no (unknown) (unknown) Mood: congruent (units (unknown) date) mood unknown) (unknown) (no (unknown) (unknown) Neuro (units (unkno wn) date) unknown) (unknown) (no (unknown) (unknown) No ear pain, (units (u nknown) date) plugged sensation unknown) or other ear symptoms. (unknown) (no (unknown) (unknown) PFSH (units (unkno wn) date) unknown) (unknown) (no (unknown) (unknown) PO BEDTIME PRN (units (unknown) date) 10 tabs 3RF sleep unknown) (unknown) (no (unknown) (unknown) Parent, patient (units (unknown) date) were present in unknown) their home in [place], [place]. (unknown) (no (unknown) (unknown) Patient also (units (u nknown) date) would like to unknown) discuss her hearing loss. She states that she seems (unknown) (no (unknown) (unknown) Patient (units (unkno wn) date) consented to unknown) receive services via teleheath. (unknown) (no (unknown) (unknown) Patient is due (units (unknown) date) for Pap. Out unknown) (unknown) (no (unknown) (unknown) Patient: (units (unkno wn) date) Elizabeth Chery unknown) MR#: [id number] (unknown) (no (unknown) (unknown) Penicillins (units (un known) date) Allergy (Unknown, unknown) Verified 05/01/22 14:04) (unknown) (no (unknown) (unknown) Plan (units (unkno wn) date) unknown) (unknown) (no (unknown) (unknown) Provider was (units (u nknown) date) present in her unknown) office in [place], [place]. (unknown) (no (unknown) (unknown) Psych (units (unkno wn) date) unknown) (unknown) (no (unknown) (unknown) ROS (units (unkno wn) date) unknown) (unknown) (no (unknown) (unknown) Real-time (units (unkn own) date) synchronous unknown) services were performed using the [employer] platform. (unknown) (no (unknown) (unknown) Reason For Visit (units (unknown) date) unknown) (unknown) (no (unknown) (unknown) Referral (units (unkno wn) date) Audiology H91.90 unknown) - Unspecified hearing loss, unspecified ear (unknown) (no (unknown) (unknown) Referrals (units (unkn own) date) unknown) (unknown) (no (unknown) (unknown) Resp (units (unkno wn) date) unknown) (unknown) (no (unknown) (unknown) She reports that (units (unknown) date) she is doing unknown) quite well since she switched from gabapentin to (unknown) (no (unknown) (unknown) Signed By: (units (unk nown) date) unknown) (unknown) (no (unknown) (unknown) Skin wound from (units (unknown) date) surgical incision unknown) (unknown) (no (unknown) (unknown) Smoking Status: (units (unknown) date) Never smoker unknown) (unknown) (no (unknown) (unknown) Speech: speech (units (unknown) date) normal unknown) (unknown) (no (unknown) (unknown) Sulfa (units (unkno wn) date) (Sulfonamide unknown) Antibiotics) Allergy (Unknown, Verified 05/01/22 14:04) (unknown) (no (unknown) (unknown) This note may (units ( unknown) date) have been all or unknown) partially generated using voice recognition (unknown) (no (unknown) (unknown) Thought Content: (units (unknown) date) normal unknown) (unknown) (no (unknown) (unknown) Thought Process: (units (unknown) date) normal unknown) (unknown) (no (unknown) (unknown) To trazodone 100 (units (unknown) date) mg (2 x 50 mg) PO unknown) BEDTIME PRN 180 tabs 1RF sleep (unknown) (no (unknown) (unknown) Tobacco + (units (unkn own) date) Substance Use unknown) (unknown) (no (unknown) (unknown) Tobacco Status (units (unknown) date) unknown) (unknown) (no (unknown) (unknown) Visit Reasons: (units (unknown) date) VIDEO MED F/U unknown) (unknown) (no (unknown) (unknown) alcohol intake: (units (unknown) date) never unknown) (unknown) (no (unknown) (unknown) and agreed to (units ( unknown) date) continue regimen. unknown) She will continue psychotherapy with Jennifer (unknown) (no (unknown) (unknown) and it has been (units (unknown) date) effective at unknown) lowering her to get to sleep and stay asleep with (unknown) (no (unknown) (unknown) bedtime most of (units (unknown) date) the time as this unknown) has been effective but we will order so that (unknown) (no (unknown) (unknown) controlling her (units (unknown) date) anxiety and unknown) depression symptoms well. No significant side (unknown) (no (unknown) (unknown) disorder, single (units (unknown) date) episode, moderate unknown) (unknown) (no (unknown) (unknown) due for pap will (units (unknown) date) schedule wwe/pap unknown) (unknown) (no (unknown) (unknown) effects. No (units (un known) date) SI/HI. unknown) (unknown) (no (unknown) (unknown) episode (units (unkno wn) date) severity: unknown) moderate Qualified Code(s): F32.1 - Major depressive (unknown) (no (unknown) (unknown) evening after (units ( unknown) date) the initial 50 mg unknown) was ineffective for sleep; however the rest of (unknown) (no (unknown) (unknown) have occurred. (units (unknown) date) If there are any unknown) questions, please contact the Medical Records (unknown) (no (unknown) (unknown) has (units (un known) date) noticed this. unknown) Denies any history of loud noise exposure. Not sure (unknown) (no (unknown) (unknown) may occur. (units (unk nown) date) Occasional unknown) wrong-word or 'sound-alike' substitutions may have (unknown) (no (unknown) (unknown) no significant (units ( unknown) date) side effects. unknown) Once she did take an additional 50 mg later in the (unknown) (no (unknown) (unknown) occurred due to (units (unknown) date) the inherent unknown) limitations of voice recognition software. Please (unknown) (no (unknown) (unknown) read the note (units ( unknown) date) carefully and unknown) recognize, using context, where these substitutions (unknown) (no (unknown) (unknown) regarding (units (unkn own) date) intruders. unknown) (unknown) (no (unknown) (unknown) second hand (units (un known) date) exposure: No unknown) (unknown) (no (unknown) (unknown) she may take up (units (unknown) date) to 100 mg at unknown) bedtime as needed. (unknown) (no (unknown) (unknown) single episode (units (unknown) date) Active/Remission unknown) status: currently active Major depression (unknown) (no (unknown) (unknown) software. (units (unkn own) date) Although every unknown) effort is made to edit content, sign erector errors (unknown) (no (unknown) (unknown) substance use (units ( unknown) date) type: does not unknown) use (unknown) (no (unknown) (unknown) the time a 50 mg (units (unknown) date) dose was unknown) effective. Continues to find that Jj seems to be (unknown) (no (unknown) (unknown) to have hearing (units (unknown) date) impairment worse unknown) on the left side. She has noticed this and her (unknown) (no (unknown) (unknown) trazodone for (units ( unknown) date) insomnia. States unknown) that she has taken 50 mg at bedtime most nights (unknown) (no (unknown) (unknown) unspecified (units (un known) date) unknown) (unknown) (no (unknown) (unknown) when this (units (unkn own) date) problem began but unknown) believes that it has been present for a long time. (unknown) (no (unknown) (unknown) with a therapist (units (unknown) date) for longer-term unknown) psychotherapy to address her issues with worry Result panel 5 (unknown) (no (unknown) (unknown) (no value) (units (unk nown) date) unknown) (unknown) (no (unknown) (unknown) Medications: (units (u nknown) date) unknown) (unknown) (no (unknown) (unknown) Orders: (units (unkno wn) date) unknown) (unknown) (no (unknown) (unknown) Qualifiers: (units (un known) date) unknown) (unknown) (no (unknown) (unknown) Status: Acute (units ( unknown) date) unknown) (unknown) (no (unknown) (unknown) (no value) (units (unk nown) date) unknown) (unknown) (no (unknown) (unknown) 07/02/22 1517 (units ( unknown) date) unknown) (unknown) (no (unknown) (unknown) Active/Remission (units (unknown) date) status: currently unknown) active Depression Type: major (unknown) (no (unknown) (unknown) DEDRA Cho (units ( unknown) date) [id number] unknown) (unknown) (no (unknown) (unknown) Family Practice (units (unknown) date) Office Visit unknown) (unknown) (no (unknown) (unknown) [facility] (units ([facility] date) [facility] unknown) (unknown) (no (unknown) (unknown) Hearing loss (units (u nknown) date) type: unspecified unknown) Laterality: unspecified laterality (unknown) (no (unknown) (unknown) If 1 tab (units (unkno wn) date) ineffective, may unknown) take 2 tabs at bedtime as needed for sleep 50 mg (unknown) (no (unknown) (unknown) Insomnia type: (units (unknown) date) unspecified unknown) Qualified Code(s): G47.00 - Insomnia, (unknown) (no (unknown) (unknown) Signed (units (unkno wn) date) unknown) (unknown) (no (unknown) (unknown) (no value) (units (unk nown) date) unknown) (unknown) (no (unknown) (unknown) (1) Anxiety: (units (u nknown) date) unknown) (unknown) (no (unknown) (unknown) (2) Insomnia: (units ( unknown) date) unknown) (unknown) (no (unknown) (unknown) (3) Depression: (units (unknown) date) unknown) (unknown) (no (unknown) (unknown) (4) Hearing (units (un known) date) loss: unknown) (unknown) (no (unknown) (unknown) 07/02/22 (units (unkno wn) date) unknown) (unknown) (no (unknown) (unknown) 27-year-old (units (un known) date) female presents unknown) to follow-up on anxiety, depressed mood, insomnia. (unknown) (no (unknown) (unknown) [id number] (units (unkno wn) date) unknown) (unknown) (no (unknown) (unknown) Affect: normal (units (unknown) date) affect unknown) (unknown) (no (unknown) (unknown) Age/Sex: 27 / F (units (unknown) date) Date of Service: unknown) (unknown) (no (unknown) (unknown) All systems (units (un known) date) reviewed + are unknown) unremarkable except as noted in HPI and below (unknown) (no (unknown) (unknown) Allergies (units (unkn own) date) unknown) (unknown) (no (unknown) (unknown) Anxiety (units (unkno wn) date) unknown) (unknown) (no (unknown) (unknown) Anxiety and (units (unk nown) date) depression: Doing unknown) relatively well on regimen. We discussed options (unknown) (no (unknown) (unknown) Appearance: (units (un known) date) grossly normal unknown) (unknown) (no (unknown) (unknown) Assessment + (units (u nknown) date) Plan unknown) (unknown) (no (unknown) (unknown) Attending Dr: (units ( unknown) date) Gustavo BRICENO unknown) (unknown) (no (unknown) (unknown) Attitude: (units (unkn own) date) cooperative unknown) (unknown) (no (unknown) (unknown) Changed (units (unkno wn) date) unknown) (unknown) (no (unknown) (unknown) Chief Complaint (units (unknown) date) unknown) (unknown) (no (unknown) (unknown) Chief Complaint: (units (unknown) date) Follow-up unknown) anxiety/depressio n (unknown) (no (unknown) (unknown) Cognition: (units (unk nown) date) normal cognition unknown) (unknown) (no (unknown) (unknown) Const (units (unkno wn) date) unknown) (unknown) (no (unknown) (unknown) : 1995 (units (unknown) date) Acct:[id number] unknown) (unknown) (no (unknown) (unknown) Depression (units (unk nown) date) unknown) (unknown) (no (unknown) (unknown) Dept at (units (unkno wn) date) . unknown) (unknown) (no (unknown) (unknown) Details: (units (unkno wn) date) unknown) (unknown) (no (unknown) (unknown) Documented By: (units (unknown) date) Gustavo Díaz unknown) 07/02/22 1415 (unknown) (no (unknown) (unknown) [place] until (units ( unknown) date) she has completed unknown) the program. I advised she consider working (unknown) (no (unknown) (unknown) Effort + (units (unkno wn) date) Inspection: unknown) normal respiratory effort (unknown) (no (unknown) (unknown) Exam (units (unkno wn) date) unknown) (unknown) (no (unknown) (unknown) Eyes (units (unkno wn) date) unknown) (unknown) (no (unknown) (unknown) From trazodone (units (unknown) date) unknown) (unknown) (no (unknown) (unknown) GERD (units (unkno wn) date) (gastroesophageal unknown) reflux disease) (2019) (unknown) (no (unknown) (unknown) General: (units (unkno wn) date) appearance unknown) normal, both eyes and all related structures (unknown) (no (unknown) (unknown) General: (units (unkno wn) date) cooperative and unknown) no acute distress (unknown) (no (unknown) (unknown) General: patient (units (unknown) date) alert, patient unknown) awake and patient oriented x3 (unknown) (no (unknown) (unknown) HENMT (units (unkno wn) date) unknown) (unknown) (no (unknown) (unknown) HPI (units (unkno wn) date) unknown) (unknown) (no (unknown) (unknown) Head: normal to (units (unknown) date) inspection unknown) (unknown) (no (unknown) (unknown) Hearing loss: (units ( unknown) date) Refer to unknown) audiology. (unknown) (no (unknown) (unknown) Insomnia (units (unkno wn) date) unknown) (unknown) (no (unknown) (unknown) Insomnia: Doing (units (unknown) date) well on regimen, unknown) continue same. She intends to take 50 mg at (unknown) (no (unknown) (unknown) Intake (units (unkno wn) date) unknown) (unknown) (no (unknown) (unknown) Irregular (units (unkn own) date) menstrual unknown) bleeding (10/2021) (unknown) (no (unknown) (unknown) Loc: [facility] (units (unkno wn) date) unknown) (unknown) (no (unknown) (unknown) Medical History (units (unknown) date) (Reviewed unknown) 07/02/22 @ 14:54 by JANAK Melendez) (unknown) (no (unknown) (unknown) Mental Status: (units (unknown) date) mental status unknown) grossly normal (unknown) (no (unknown) (unknown) Moderate (units (unkno wn) date) intermittent unknown) asthma (unknown) (no (unknown) (unknown) Moderate (units (unkno wn) date) persistent asthma unknown) (unknown) (no (unknown) (unknown) Mood: congruent (units (unknown) date) mood unknown) (unknown) (no (unknown) (unknown) Neuro (units (unkno wn) date) unknown) (unknown) (no (unknown) (unknown) No ear pain, (units (u nknown) date) plugged sensation unknown) or other ear symptoms. (unknown) (no (unknown) (unknown) PFSH (units (unkno wn) date) unknown) (unknown) (no (unknown) (unknown) PO BEDTIME PRN (units (unknown) date) 10 tabs 3RF sleep unknown) (unknown) (no (unknown) (unknown) Parent, patient (units (unknown) date) were present in unknown) their home in [place], [place]. (unknown) (no (unknown) (unknown) Patient also (units (u nknown) date) would like to unknown) discuss her hearing loss. She states that she seems (unknown) (no (unknown) (unknown) Patient (units (unkno wn) date) consented to unknown) receive services via teleheath. (unknown) (no (unknown) (unknown) Patient is due (units (unknown) date) for Pap. patient unknown) will be scheduled for well-woman exam Pap and (unknown) (no (unknown) (unknown) Patient: (units (unkno wn) date) Elizabeth Chery unknown) MR#: [id number] (unknown) (no (unknown) (unknown) Penicillins (units (un known) date) Allergy (Unknown, unknown) Verified 05/01/22 14:04) (unknown) (no (unknown) (unknown) Plan (units (unkno wn) date) unknown) (unknown) (no (unknown) (unknown) Provider was (units (u nknown) date) present in her unknown) office in [place], [place]. (unknown) (no (unknown) (unknown) Psych (units (unkno wn) date) unknown) (unknown) (no (unknown) (unknown) Qualified (units (unkn own) date) Code(s): H91.90 - unknown) Unspecified hearing loss, unspecified ear (unknown) (no (unknown) (unknown) ROS (units (unkno wn) date) unknown) (unknown) (no (unknown) (unknown) Real-time (units (unkn own) date) synchronous unknown) services were performed using the [employer] platform. (unknown) (no (unknown) (unknown) Reason For Visit (units (unknown) date) unknown) (unknown) (no (unknown) (unknown) Referral (units (unkno wn) date) Audiology H91.90 unknown) - Unspecified hearing loss, unspecified ear (unknown) (no (unknown) (unknown) Referrals (units (unkn own) date) unknown) (unknown) (no (unknown) (unknown) Resp (units (unkno wn) date) unknown) (unknown) (no (unknown) (unknown) She reports that (units (unknown) date) she is doing unknown) quite well since she switched from gabapentin to (unknown) (no (unknown) (unknown) Signed By: (units (unk nown) date) <Electronically unknown) signed by Gustavo Díaz> (unknown) (no (unknown) (unknown) Skin wound from (units (unknown) date) surgical incision unknown) (unknown) (no (unknown) (unknown) Smoking Status: (units (unknown) date) Never smoker unknown) (unknown) (no (unknown) (unknown) Speech: speech (units (unknown) date) normal unknown) (unknown) (no (unknown) (unknown) Sulfa (units (unkno wn) date) (Sulfonamide unknown) Antibiotics) Allergy (Unknown, Verified 05/01/22 14:04) (unknown) (no (unknown) (unknown) This note may (units ( unknown) date) have been all or unknown) partially generated using voice recognition (unknown) (no (unknown) (unknown) Thought Content: (units (unknown) date) normal unknown) (unknown) (no (unknown) (unknown) Thought Process: (units (unknown) date) normal unknown) (unknown) (no (unknown) (unknown) To trazodone 100 (units (unknown) date) mg (2 x 50 mg) PO unknown) BEDTIME PRN 180 tabs 1RF sleep (unknown) (no (unknown) (unknown) Tobacco + (units (unkn own) date) Substance Use unknown) (unknown) (no (unknown) (unknown) Tobacco Status (units (unknown) date) unknown) (unknown) (no (unknown) (unknown) Visit Reasons: (units (unknown) date) VIDEO MED F/U unknown) (unknown) (no (unknown) (unknown) alcohol intake: (units (unknown) date) never unknown) (unknown) (no (unknown) (unknown) and agreed to (units ( unknown) date) continue regimen. unknown) She will continue psychotherapy with Jennifer (unknown) (no (unknown) (unknown) and it has been (units (unknown) date) effective at unknown) lowering her to get to sleep and stay asleep with (unknown) (no (unknown) (unknown) bedtime most of (units (unknown) date) the time as this unknown) has been effective but we will order so that (unknown) (no (unknown) (unknown) concerns. (units (unkn own) date) unknown) (unknown) (no (unknown) (unknown) controlling her (units (unknown) date) anxiety and unknown) depression symptoms well. No significant side (unknown) (no (unknown) (unknown) depression (units (unk nown) date) recurrence: unknown) single episode Qualified Code(s): F32.1 - Major (unknown) (no (unknown) (unknown) depressive (units (unk nown) date) disorder Major unknown) depression episode severity: moderate Major (unknown) (no (unknown) (unknown) depressive (units (unk nown) date) disorder, single unknown) episode, moderate (unknown) (no (unknown) (unknown) effects. No (units (un known) date) SI/HI. unknown) (unknown) (no (unknown) (unknown) evening after (units ( unknown) date) the initial 50 mg unknown) was ineffective for sleep; however the rest of (unknown) (no (unknown) (unknown) follow-up on (units (u nknown) date) mental health unknown) concerns. Otherwise, plan will be to follow-up at (unknown) (no (unknown) (unknown) have occurred. (units (unknown) date) If there are any unknown) questions, please contact the Medical Records (unknown) (no (unknown) (unknown) has (units (un known) date) noticed this. unknown) Denies any history of loud noise exposure. Not sure (unknown) (no (unknown) (unknown) least every 6 (units (u nknown) date) months and sooner unknown) as needed for new or worsening symptoms or other (unknown) (no (unknown) (unknown) may occur. (units (unk nown) date) Occasional unknown) wrong-word or 'sound-alike' substitutions may have (unknown) (no (unknown) (unknown) no significant (units ( unknown) date) side effects. unknown) Once she did take an additional 50 mg later in the (unknown) (no (unknown) (unknown) occurred due to (units (unknown) date) the inherent unknown) limitations of voice recognition software. Please (unknown) (no (unknown) (unknown) read the note (units ( unknown) date) carefully and unknown) recognize, using context, where these substitutions (unknown) (no (unknown) (unknown) regarding (units (unkn own) date) intruders. When unknown) she comes in for her well-woman exam/Pap we will (unknown) (no (unknown) (unknown) second hand (units (un known) date) exposure: No unknown) (unknown) (no (unknown) (unknown) she may take up (units (unknown) date) to 100 mg at unknown) bedtime as needed. (unknown) (no (unknown) (unknown) software. (units (unkn own) date) Although every unknown) effort is made to edit content, sign erector errors (unknown) (no (unknown) (unknown) substance use (units ( unknown) date) type: does not unknown) use (unknown) (no (unknown) (unknown) the time a 50 mg (units (unknown) date) dose was unknown) effective. Continues to find that Pristiq seems to be (unknown) (no (unknown) (unknown) to have hearing (units (unknown) date) impairment worse unknown) on the left side. She has noticed this and her (unknown) (no (unknown) (unknown) trazodone for (units ( unknown) date) insomnia. States unknown) that she has taken 50 mg at bedtime most nights (unknown) (no (unknown) (unknown) unspecified (units (un known) date) unknown) (unknown) (no (unknown) (unknown) we will (units (unkno wn) date) follow-up on unknown) mental health at that point. (unknown) (no (unknown) (unknown) when this (units (unkn own) date) problem began but unknown) believes that it has been present for a long time. (unknown) (no (unknown) (unknown) with a therapist (units (unknown) date) for longer-term unknown) psychotherapy to address her issues with worry Result panel 6 (unknown) (no (unknown) (unknown) (no value) (units (unk nown) date) unknown) (unknown) (no (unknown) (unknown) (1) Anxiety: (units (u nknown) date) unknown) (unknown) (no (unknown) (unknown) (2) Depression: (units (unknown) date) unknown) (unknown) (no (unknown) (unknown) * 1 friend with (units (unknown) date) son around same unknown) age. (unknown) (no (unknown) (unknown) * 15 month old (units (unknown) date) son, Max. unknown) (unknown) (no (unknown) (unknown) * 26 year old (units ( unknown) date) female referred to unknown) BHIP by JANAK Martinez for anxiety and (unknown) (no (unknown) (unknown) * 5 years (units (unknown) date) to spouse who is unknown) supportive. 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 (unknown) (no (unknown) (unknown) * Current: (units (unk nown) date) unknown) (unknown) (no (unknown) (unknown) * Discontinued (units (unknown) date) venlafaxine unknown) (unknown) (no (unknown) (unknown) * Had one (units (unkn own) date) incident when she unknown) was in the garage at night and saw the shadow of a (unknown) (no (unknown) (unknown) * Make a list of (units (unknown) date) strategies to unknown) use/try when feeling overwhelmed and panicky. (unknown) (no (unknown) (unknown) * Mom in [place], (units (unknown) date) dad in [place]. Mom unknown) comes monthly and dad comes every other (unknown) (no (unknown) (unknown) * New (units (unkno wn) date) desvenlafaxine unknown) succinate ER (Pristiq) 100 mg PO DAILY - because of (unknown) (no (unknown) (unknown) * Older sister (units (unknown) date) lives with mother. unknown) Very close with sister. (unknown) (no (unknown) (unknown) * Past: (units (unkno wn) date) unknown) (unknown) (no (unknown) (unknown) * Patient (units (unkn own) date) expressed concern unknown) for him and the fact that he expressed suicidal (unknown) (no (unknown) (unknown) * Patient has been (units (unknown) date) participating in unknown) [facility] since December 2021. Today is patient's (unknown) (no (unknown) (unknown) * Patient shared (units (unknown) date) that her unknown) [id number] (reyna), who lives out of state, called (unknown) (no (unknown) (unknown) * Patient shared (units (unknown) date) that spouse will unknown) be taking bridge courses through the , (unknown) (no (unknown) (unknown) * Patient states (units (unknown) date) that overall she unknown) is doing okay. (unknown) (no (unknown) (unknown) * Strategies for (units (unknown) date) handling intense unknown) emotions: change your body chemistry by (unknown) (no (unknown) (unknown) * When (units (unknown) date) changed to unknown) sertraline. (unknown) (no (unknown) (unknown) * You can search (units (unknown) date) for a therapist unknown) here, who takes : (unknown) (no (unknown) (unknown) * citalopram - (units (unknown) date) was taking before unknown) and after son was born. Was taking (unknown) (no (unknown) (unknown) * (units (unkno wn) date) [email or web address] unknown) [email or web address] (unknown) (no (unknown) (unknown) * hydroxyzine (units ( unknown) date) pamoate 25 mg unknown) capsule 25 mg PO TID PRN - In mid November, while (unknown) (no (unknown) (unknown) * venlafaxine 75 (units (unknown) date) mg tablet,extended unknown) release 24 hr 75 mg PO BEDTIME (unknown) (no (unknown) (unknown) * (units (unkno wn) date) unknown) (unknown) (no (unknown) (unknown) - Can consider (units (unknown) date) new agent prn unknown) panic if appropriate if hydroxyzine no longer (unknown) (no (unknown) (unknown) - Contingency if (units (unknown) date) not effective: unknown) consider duloxetine (unknown) (no (unknown) (unknown) - Feel free to (units (unknown) date) reach out to Dr. eric Minaya via workload message with questions or (unknown) (no (unknown) (unknown) - First official (units (unknown) date) week of taking 150 unknown) mg. of venlafaxine. (unknown) (no (unknown) (unknown) - Gabapentin: (units ( unknown) date) consider increase unknown) in bedtime dose as next step; could also stop (unknown) (no (unknown) (unknown) - If gabapentin (units (unknown) date) not effective for unknown) increasing sleep time or falling asleep, (unknown) (no (unknown) (unknown) - Taking 2 (units (unkn own) date) hydroxyzine per unknown) day. One in the a.m. and one at bedtime. Continues to (unknown) (no (unknown) (unknown) - Venlafaxine ER: (units (unknown) date) Agree with plan to unknown) continue increase if tolerated; if causing (unknown) (no (unknown) (unknown) - Venlafaxine ER: (units (unknown) date) Currently on unknown) 150mg. Room to increase if tolerated (unknown) (no (unknown) (unknown) - Venlafaxine: (units ( unknown) date) consider increase unknown) to 300mg vs. switch to Pristiq (desvenlafaxine) (unknown) (no (unknown) (unknown) 07/15/22 (units (unkno wn) date) unknown) (unknown) (no (unknown) (unknown) 100mg daily. (units (un known) date) Direct switch is unknown) typically well tolerated since these agents are so (unknown) (no (unknown) (unknown) 01/08/22 (units (unkno wn) date) unknown) (unknown) (no (unknown) (unknown) 01/08/22 24 20 (units ( unknown) date) unknown) (unknown) (no (unknown) (unknown) 01/13/22 - (units ( unknown) date) Marimar[facility]lenora [facility] unknown) RECOMMENDATIONS + TREATMENT PLAN for PCP [place]: (unknown) (no (unknown) (unknown) 26 year old (units (un known) date) participating in unknown) [facility] for anxiety and depression. (unknown) (no (unknown) (unknown) 01/28/22 20 18 (units ( unknown) date) unknown) (unknown) (no (unknown) (unknown) 01/28/22 (units (unkno wn) date) unknown) (unknown) (no (unknown) (unknown) [id number] (units (unkno wn) date) unknown) (unknown) (no (unknown) (unknown) 02/25/22 18 15 (units ( unknown) date) unknown) (unknown) (no (unknown) (unknown) 03/31/22 (units (unk nown) date) Maggy [facility] unknown) RECOMMENDATIONS + TREATMENT PLAN for PCP (Referred by (unknown) (no (unknown) (unknown) 04/15/22 - Tried (units (unknown) date) 50 mg of unknown) hydroxyzine. [place] sleepy, but was not able to sleep. (unknown) (no (unknown) (unknown) 04/15/22 18 15 (units ( unknown) date) unknown) (unknown) (no (unknown) (unknown) 05/14/22 - (units ( unknown) date) [facility]IP unknown) RECOMMENDATIONS + TREATMENT PLAN for PCP STOCK SHIPPER (unknown) (no (unknown) (unknown) 60 minutes (units (unk nown) date) unknown) (unknown) (no (unknown) (unknown) 05/28/22 - PCP (units ( unknown) date) JANAK Díaz's unknown) note: (unknown) (no (unknown) (unknown) 06/16/22 - Decrease (units (unknown) date) in night sweats. unknown) (unknown) (no (unknown) (unknown) 06/16/22 16 12 (units (u nknown) date) unknown) (unknown) (no (unknown) (unknown) 07/15/22 - Today (units (unknown) date) is patient's final unknown) BHIP appointment. (unknown) (no (unknown) (unknown) STOCK SHIPPER Rashmi, (units ( unknown) date) scheduled in April unknown) with JANAK Díaz): (unknown) (no (unknown) (unknown) Age/Sex: 27 / F (units (unknown) date) Date of Service: unknown) (unknown) (no (unknown) (unknown) All participants (units (unknown) date) + their role: unknown) (Providers,Parent, Spouse,etc): (unknown) (no (unknown) (unknown) DEDRA Cho (units ( unknown) date) [id number] unknown) (unknown) (no (unknown) (unknown) Attending Dr: (units ( unknown) date) Jennifer Silvestre [facility] unknown) (unknown) (no (unknown) (unknown) BHIP Assessment + (units (unknown) date) Plan unknown) (unknown) (no (unknown) (unknown) BHIP Property Valuer (units (unknown) date) Follow-Up unknown) (unknown) (no (unknown) (unknown) BHIP Goal #1: (units ( unknown) date) Skills to cope unknown) with anxiety and depression (unknown) (no (unknown) (unknown) BHIP Goal (units (unkn own) date) #1:?Skills to cope unknown) with anxiety and depression (unknown) (no (unknown) (unknown) BHIP Goal (units (unkn own) date) Progress#1: 5 unknown) (unknown) (no (unknown) (unknown) BHIP Goal (units (unkn own) date) Progress#1:?3 unknown) (unknown) (no (unknown) (unknown) Care Management (units (unknown) date) Visit unknown) (unknown) (no (unknown) (unknown) Case Formulation (units (unknown) date) unknown) (unknown) (no (unknown) (unknown) Cognitive (units (unkn own) date) Behavioral unknown) Therapy, Behavioral Activation, Motivational Interviewing (unknown) (no (unknown) (unknown) : 1995 (units (unknown) date) Acct:[id number] unknown) (unknown) (no (unknown) (unknown) Date PHQ9 GAD7 (units (unknown) date) unknown) (unknown) (no (unknown) (unknown) Depression Type: (units (unknown) date) major depressive unknown) disorder Major depression recurrence: (unknown) (no (unknown) (unknown) Dept at (units (unkno wn) date) . unknown) (unknown) (no (unknown) (unknown) Discharge Plan: (units (unknown) date) June 2022 is 6 unknown) months in [facility] (unknown) (no (unknown) (unknown) Documented By: (units (unknown) date) Jennifer Silvestre unknown) 07/15/22 0835 (unknown) (no (unknown) (unknown) Draft (units (unkno wn) date) unknown) (unknown) (no (unknown) (unknown) Family: (units (unkno wn) date) unknown) (unknown) (no (unknown) (unknown) [facility]) (unknown) (no (unknown) (unknown) Goals + Progress (units (unknown) date) unknown) (unknown) (no (unknown) (unknown) Interventions (units ( unknown) date) unknown) (unknown) (no (unknown) (unknown) Loc: [facility] (units (unkno wn) date) unknown) (unknown) (no (unknown) (unknown) Location of (units (un known) date) patient:: Home unknown) (unknown) (no (unknown) (unknown) Location of (units (un known) date) provider:: - unknown) [address] [place] [address] (unknown) (no (unknown) (unknown) Medication Update (units (unknown) date) unknown) (unknown) (no (unknown) (unknown) Negative (units (unkno wn) date) Thoughts, unknown) Grounding Techniques and article Activating Parasympathetic (unknown) (no (unknown) (unknown) Nervous System. (units (unknown) date) unknown) (unknown) (no (unknown) (unknown) Ongoing: (units (unkno wn) date) unknown) (unknown) (no (unknown) (unknown) Other (units (unkno wn) date) unknown) (unknown) (no (unknown) (unknown) Other/Additional (units (unknown) date) Details:: unknown) (unknown) (no (unknown) (unknown) Patient consented (units (unknown) date) to receive unknown) services via telehealth?: Yes (unknown) (no (unknown) (unknown) Patient's son was (units (unknown) date) born in September unknown) 2019 following a move to [place], [facility] (unknown) (no (unknown) (unknown) Patient: (units (unkno wn) date) Elizabeth Chery unknown) MR#: [id number] (unknown) (no (unknown) (unknown) Plan (units (unkno wn) date) unknown) (unknown) (no (unknown) (unknown) Presenting (units (unk nown) date) Problem Update unknown) (unknown) (no (unknown) (unknown) Previously Mailed (units (unknown) date) worksheets:: unknown) Mailed Distress Tolerance Worksheet, Managing and (unknown) (no (unknown) (unknown) Protective (units (unk nown) date) Factors: Spouse of unknown) 5 years, 15 month old son, close with sister and (unknown) (no (unknown) (unknown) Protective (units (unk nown) date) Factors:?Spouse of unknown) 5 years, 15 month old son, close with sister and (unknown) (no (unknown) (unknown) Qualifiers: (units (un known) date) unknown) (unknown) (no (unknown) (unknown) Real-time,sychron (units (unknown) date) ous services were unknown) performed via:: [facility]see (unknown) (no (unknown) (unknown) Reducing Anxiety (units (unknown) date) article, Worries unknown) Worksheet, Cognitive Distortions, Challenging (unknown) (no (unknown) (unknown) Arjun: (units (unkno wn) date) unknown) (unknown) (no (unknown) (unknown) Signed By: (units (unk nown) date) unknown) (unknown) (no (unknown) (unknown) Status: Acute (units ( unknown) date) unknown) (unknown) (no (unknown) (unknown) Jennifer Silvestre, (units (unknown) date) GROUNDSKEEPER SUPERVISOR, AMMONIA BOX TENDER unknown) (unknown) (no (unknown) (unknown) TeleHealth (units (unk nown) date) unknown) (unknown) (no (unknown) (unknown) This caused more (units (unknown) date) anxiety. unknown) (unknown) (no (unknown) (unknown) This note may (units ( unknown) date) have been all or unknown) partially generated using voice recognition (unknown) (no (unknown) (unknown) Time Spent (units (unk nown) date) unknown) (unknown) (no (unknown) (unknown) Time Spent: (units (un known) date) unknown) (unknown) (no (unknown) (unknown) Were services (units ( unknown) date) performed via unknown) telephone only?: No (unknown) (no (unknown) (unknown) afterward. (units (unk nown) date) unknown) (unknown) (no (unknown) (unknown) and Mindfulness (units (unknown) date) unknown) (unknown) (no (unknown) (unknown) back to his . (units (unknown) date) unknown) (unknown) (no (unknown) (unknown) challenging to (units (unknown) date) de-escalate that unknown) evening from this situation. (unknown) (no (unknown) (unknown) clarifications (units (unknown) date) unknown) (unknown) (no (unknown) (unknown) consider trial of (units (unknown) date) trazodone unknown) (unknown) (no (unknown) (unknown) conversation but (units (unknown) date) he has not talked unknown) more about moving. (unknown) (no (unknown) (unknown) could be (units (unkno wn) date) gabapentin, unknown) propranolol, or other anxiolytics as appropriate (unknown) (no (unknown) (unknown) daytime dosing if (units (unknown) date) too sedating unknown) (unknown) (no (unknown) (unknown) depression. (units (un known) date) unknown) (unknown) (no (unknown) (unknown) disorder, single (units (unknown) date) episode, moderate unknown) (unknown) (no (unknown) (unknown) effective. If not (units (unknown) date) tried 50mg unknown) hydroxyzine, could try that first; other options (unknown) (no (unknown) (unknown) episode severity: (units (unknown) date) moderate Qualified unknown) Code(s): F32.1 - Major depressive (unknown) (no (unknown) (unknown) every 4-6 weeks (units (unknown) date) until clear unknown) improvement, max dose 300mg daily (unknown) (no (unknown) (unknown) final BHIP (units (unk nown) date) appointment. unknown) (unknown) (no (unknown) (unknown) for 30 seconds. (units (unknown) date) Can also do unknown) intense exercise or movement. (unknown) (no (unknown) (unknown) for about a year (units (unknown) date) and seemed to work unknown) before . Didn't seem to work (unknown) (no (unknown) (unknown) for self and with (units (unknown) date) son. unknown) (unknown) (no (unknown) (unknown) from work. He (units ( unknown) date) asked if he could unknown) come live with them and work and send money (unknown) (no (unknown) (unknown) have occurred. If (units (unknown) date) there are any unknown) questions, please contact the Medical Records (unknown) (no (unknown) (unknown) health-options.ht (units (unknown) date) ml unknown) (unknown) (no (unknown) (unknown) holding your (units (u nknown) date) breath and using unknown) cold water or a cold pack on eyes and cheeks (unknown) (no (unknown) (unknown) [email or web address] (units (unknown) date) [employer]/us/ unknown) therapists/wa/[employer] (unknown) (no (unknown) (unknown) [email or web address] (units (unknown) date) [employer]/[place] unknown) t/hnfs/home/tw/negin e/provider-directo ry/tele (unknown) (no (unknown) (unknown) increase to 150 (units (unknown) date) mg. unknown) (unknown) (no (unknown) (unknown) increased 01/02 (units (unknown) date) from 37.5 mg. unknown) Started after nursing stopped. Plan is to (unknown) (no (unknown) (unknown) insomnia, can (units ( unknown) date) consider moving unknown) schedule to [facility]. I typically increase by 75mg (unknown) (no (unknown) (unknown) looking forward (units (unknown) date) to living closer unknown) to them. (unknown) (no (unknown) (unknown) lorazepam for (units ( unknown) date) panic attacks. unknown) (unknown) (no (unknown) (unknown) man passed by. (units (unknown) date) Woke up spouse who unknown) took a look, but did not find anything. Was (unknown) (no (unknown) (unknown) may occur. (units (unk nown) date) Occasional unknown) wrong-word or 'sound-alike' substitutions may have (unknown) (no (unknown) (unknown) month. (units (unkno wn) date) unknown) (unknown) (no (unknown) (unknown) night sweats (units (u nknown) date) unknown) (unknown) (no (unknown) (unknown) occurred due to (units (unknown) date) the inherent unknown) limitations of voice recognition software. Please (unknown) (no (unknown) (unknown) parents, 1 good (units (unknown) date) friend who lives unknown) locally. (unknown) (no (unknown) (unknown) patient's spouse (units (unknown) date) last week and was unknown) in distress because he had been laid off (unknown) (no (unknown) (unknown) read the note (units ( unknown) date) carefully and unknown) recognize, using context, where these substitutions (unknown) (no (unknown) (unknown) similar (units (unkno wn) date) unknown) (unknown) (no (unknown) (unknown) single episode (units (unknown) date) Active/Remission unknown) status: currently active Major depression (unknown) (no (unknown) (unknown) software. (units (unkn own) date) Although every unknown) effort is made to edit content, sign erector errors (unknown) (no (unknown) (unknown) spouse was gone (units (unknown) date) for a month for unknown) his work with the [employer]. (unknown) (no (unknown) (unknown) spouse was gone, (units (unknown) date) was taking 3 per unknown) day. Now 1-2. Finds it to be helpful. (unknown) (no (unknown) (unknown) summer but (units (unk nown) date) symptoms persisted unknown) and reach a high point in November 2019 when her (unknown) (no (unknown) (unknown) summer but (units (unk nown) date) symptoms persisted unknown) and reach a high point in 2019 when her (unknown) (no (unknown) (unknown) the beginning of (units (unknown) date) the Coronavirus unknown) outbreak. Patient felt some relief over the (unknown) (no (unknown) (unknown) thoughts. Patient (units (unknown) date) and spouse have unknown) kept in touch with him since the first (unknown) (no (unknown) (unknown) wake up (units (unkno wn) date) throughout the unknown) night and difficulty falling asleep. (unknown) (no (unknown) (unknown) which will move (units (unknown) date) them closer to her unknown) family in the [place] area. Patient is (unknown) (no (unknown) (unknown) x 100 mg) PO (units (u nknown) date) BEDTIME unknown) Result panel 7 (unknown) (no (unknown) (unknown) (no value) (units (unk nown) date) unknown) (unknown) (no (unknown) (unknown) (1) Anxiety: (units (u nknown) date) unknown) (unknown) (no (unknown) (unknown) (2) Depression: (units (unknown) date) unknown) (unknown) (no (unknown) (unknown) * 1 friend with (units (unknown) date) son around same unknown) age. (unknown) (no (unknown) (unknown) * 15 month old (units (unknown) date) son, Max. unknown) (unknown) (no (unknown) (unknown) * 26 year old (units ( unknown) date) female referred to unknown) BHIP by JANAK Martinez for anxiety and (unknown) (no (unknown) (unknown) * 5 years (units (unknown) date) to spouse who is unknown) supportive. (unknown) (no (unknown) (unknown) * As a teenager (units (unknown) date) and several years unknown) ago when working at a [employer] center, took (unknown) (no (unknown) (unknown) * Can use 21696 (units (unknown) date) or 333 exercise unknown) and 'smell the flower, blow out the candle' (unknown) (no (unknown) (unknown) * Changed From (units ( unknown) date) gabapentin 1 cap unknown) three times daily 100 mg to gabapentin 300 mg (3 (unknown) (no (unknown) (unknown) * Create a (units (unk nown) date) low-stimulation unknown) area. (unknown) (no (unknown) (unknown) * Current: (units (unk nown) date) unknown) (unknown) (no (unknown) (unknown) * Discontinued (units (unknown) date) venlafaxine unknown) (unknown) (no (unknown) (unknown) * Had one (units (unkn own) date) incident when she unknown) was in the garage at night and saw the shadow of a (unknown) (no (unknown) (unknown) * Make a list of (units (unknown) date) strategies to unknown) use/try when feeling overwhelmed and panicky. (unknown) (no (unknown) (unknown) * Mom in [place], (units (unknown) date) dad in [place]. Mom unknown) comes monthly and dad comes every other (unknown) (no (unknown) (unknown) * New (units (unkno wn) date) desvenlafaxine unknown) succinate ER (Pristiq) 100 mg PO DAILY - because of (unknown) (no (unknown) (unknown) * Older sister (units (unknown) date) lives with mother. unknown) Very close with sister. (unknown) (no (unknown) (unknown) * Past: (units (unkno wn) date) unknown) (unknown) (no (unknown) (unknown) * Patient (units (unkn own) date) expressed concern unknown) for him and the fact that he expressed suicidal (unknown) (no (unknown) (unknown) * Patient has been (units (unknown) date) participating in unknown) [facility] since December 2021. Today is patient's (unknown) (no (unknown) (unknown) * Patient shared (units (unknown) date) that her unknown) [id number] (re[place]), who lives out of state, called (unknown) (no (unknown) (unknown) * Patient shared (units (unknown) date) that spouse will unknown) be taking bridge courses through the [employer], (unknown) (no (unknown) (unknown) * Patient states (units (unknown) date) that overall she unknown) is doing okay. (unknown) (no (unknown) (unknown) * Strategies for (units (unknown) date) handling intense unknown) emotions: change your body chemistry by (unknown) (no (unknown) (unknown) * When (units (unknown) date) changed to unknown) sertraline. (unknown) (no (unknown) (unknown) * You can search (units (unknown) date) for a therapist unknown) here, who takes : (unknown) (no (unknown) (unknown) * citalopram - (units (unknown) date) was taking before unknown) and after son was born. Was taking (unknown) (no (unknown) (unknown) * (units (unkno wn) date) https://www.tricar unknown) e.[facility] [[email or web address]]/CoveredServi ny/[email or web address]/Getting [email or web address]/Prime_Appts (unknown) (no (unknown) (unknown) * hydroxyzine (units ( unknown) date) pamoate 25 mg unknown) capsule 25 mg PO TID PRN - In mid November, while (unknown) (no (unknown) (unknown) * venlafaxine 75 (units (unknown) date) mg tablet,extended unknown) release 24 hr 75 mg PO BEDTIME (unknown) (no (unknown) (unknown) * (units (unkno wn) date) unknown) (unknown) (no (unknown) (unknown) - Can consider (units (unknown) date) new agent prn unknown) panic if appropriate if hydroxyzine no longer (unknown) (no (unknown) (unknown) - Contingency if (units (unknown) date) not effective: unknown) consider duloxetine (unknown) (no (unknown) (unknown) - Feel free to (units (unknown) date) reach out to unknown) Marimar via workload message with questions or (unknown) (no (unknown) (unknown) - First official (units (unknown) date) week of taking 150 unknown) mg. of venlafaxine. (unknown) (no (unknown) (unknown) - Gabapentin: (units ( unknown) date) consider increase unknown) in bedtime dose as next step; could also stop (unknown) (no (unknown) (unknown) - If gabapentin (units (unknown) date) not effective for unknown) increasing sleep time or falling asleep, (unknown) (no (unknown) (unknown) - Taking 2 (units (unkn own) date) hydroxyzine per unknown) day. One in the a.m. and one at bedtime. Continues to (unknown) (no (unknown) (unknown) - Venlafaxine ER: (units (unknown) date) Agree with plan to unknown) continue increase if tolerated; if causing (unknown) (no (unknown) (unknown) - Venlafaxine ER: (units (unknown) date) Currently on unknown) 150mg. Room to increase if tolerated (unknown) (no (unknown) (unknown) - Venlafaxine: (units ( unknown) date) consider increase unknown) to 300mg vs. switch to Pristiq (desvenlafaxine) (unknown) (no (unknown) (unknown) 07/15/22 (units (unkno wn) date) unknown) (unknown) (no (unknown) (unknown) 100mg daily. (units (un known) date) Direct switch is unknown) typically well tolerated since these agents are so (unknown) (no (unknown) (unknown) 01/08/22 (units (unkno wn) date) unknown) (unknown) (no (unknown) (unknown) 01/08/22 24 20 (units ( unknown) date) unknown) (unknown) (no (unknown) (unknown) 01/13/22 - (units ( unknown) date) Marimar's [facility] unknown) RECOMMENDATIONS + TREATMENT PLAN for PCP [place]: (unknown) (no (unknown) (unknown) 26 year old (units (un known) date) participating in unknown) [facility] for anxiety and depression. (unknown) (no (unknown) (unknown) 01/28/22 20 18 (units ( unknown) date) unknown) (unknown) (no (unknown) (unknown) 01/28/22 (units (unkno wn) date) unknown) (unknown) (no (unknown) (unknown) [id number] (units (unkno wn) date) unknown) (unknown) (no (unknown) (unknown) 02/25/22 18 15 (units ( unknown) date) unknown) (unknown) (no (unknown) (unknown) 03/31/22 (units (unk nown) date) [facility] [facility] unknown) RECOMMENDATIONS + TREATMENT PLAN for PCP (Referred by (unknown) (no (unknown) (unknown) 04/15/22 - Tried (units (unknown) date) 50 mg of unknown) hydroxyzine. [place] sleepy, but was not able to sleep. (unknown) (no (unknown) (unknown) 04/15/22 18 15 (units ( unknown) date) unknown) (unknown) (no (unknown) (unknown) 05/14/22 - (units ( unknown) date) [facility] [facility] unknown) RECOMMENDATIONS + TREATMENT PLAN for PCP STOCK [employer]IP[employer] (unknown) (no (unknown) (unknown) 60 minutes (units (unk nown) date) unknown) (unknown) (no (unknown) (unknown) 05/28/22 - PCP (units ( unknown) date) JANAK Díaz's unknown) note: (unknown) (no (unknown) (unknown) 06/16/22 - Decrease (units (unknown) date) in night sweats. unknown) (unknown) (no (unknown) (unknown) 06/16/22 16 12 (units (u nknown) date) unknown) (unknown) (no (unknown) (unknown) 07/15/22 - Today (units (unknown) date) is patient's final unknown) [facility] appointment. (unknown) (no (unknown) (unknown) JANAK Caraballo, (units ( unknown) date) scheduled in April unknown) with JANAK Díaz): (unknown) (no (unknown) (unknown) Active/Remission (units (unknown) date) status: currently unknown) active Depression Type: major (unknown) (no (unknown) (unknown) Age/Sex: 27 / F (units (unknown) date) Date of Service: unknown) (unknown) (no (unknown) (unknown) All participants (units (unknown) date) + their role: unknown) (Providers,Parent, Spouse,etc): (unknown) (no (unknown) (unknown) DEDRA Cho (units ( unknown) date) [id number] unknown) (unknown) (no (unknown) (unknown) Attending Dr: (units ( unknown) date) Jennifer ANGUIANO unknown) (unknown) (no (unknown) (unknown) [facility] Assessment + (units (unknown) date) Plan unknown) (unknown) (no (unknown) (unknown) [facility] Property Valuer (units (unknown) date) Follow-Up unknown) (unknown) (no (unknown) (unknown) [facility] Goal #1: (units ( unknown) date) Skills to cope unknown) with anxiety and depression (unknown) (no (unknown) (unknown) IP Goal (units (unkn own) date) #1:?Skills to cope unknown) with anxiety and depression (unknown) (no (unknown) (unknown) IP Goal (units (unkn own) date) Progress#1: 5 unknown) (unknown) (no (unknown) (unknown) IP Goal (units (unkn own) date) Progress#1:?3 unknown) (unknown) (no (unknown) (unknown) Care Management (units (unknown) date) Visit unknown) (unknown) (no (unknown) (unknown) Case Formulation (units (unknown) date) unknown) (unknown) (no (unknown) (unknown) Cognitive (units (unkn own) date) Behavioral unknown) Therapy, Behavioral Activation, Motivational Interviewing (unknown) (no (unknown) (unknown) : 1995 (units (unknown) date) Acct:[id number] unknown) (unknown) (no (unknown) (unknown) Date PHQ9 GAD7 (units (unknown) date) unknown) (unknown) (no (unknown) (unknown) Dept at (units (unkno wn) date) . unknown) (unknown) (no (unknown) (unknown) Discharge Plan: (units (unknown) date) June 2022 is 6 unknown) months in [facility] (unknown) (no (unknown) (unknown) Documented By: (units (unknown) date) Jennifer Silvestre GROUNDSKEEPER SUPERVISOR unknown) 07/15/22 0835 (unknown) (no (unknown) (unknown) Draft (units (unkno wn) date) unknown) (unknown) (no (unknown) (unknown) Family: (units (unkno wn) date) unknown) (unknown) (no (unknown) (unknown) [facility] ([facility] unknown) (unknown) (no (unknown) (unknown) Goals + Progress (units (unknown) date) unknown) (unknown) (no (unknown) (unknown) Interventions (units ( unknown) date) unknown) (unknown) (no (unknown) (unknown) Loc: [facility] (units (unkno wn) date) unknown) (unknown) (no (unknown) (unknown) Location of (units (un known) date) patient:: Home unknown) (unknown) (no (unknown) (unknown) Location of (units (un known) date) provider:: - unknown) [address] [place] [address] (unknown) (no (unknown) (unknown) Medication Update (units (unknown) date) unknown) (unknown) (no (unknown) (unknown) Negative (units (unkno wn) date) Thoughts, unknown) Grounding Techniques and article Activating Parasympathetic (unknown) (no (unknown) (unknown) Nervous System. (units (unknown) date) unknown) (unknown) (no (unknown) (unknown) Ongoing: (units (unkno wn) date) unknown) (unknown) (no (unknown) (unknown) Other (units (unkno wn) date) unknown) (unknown) (no (unknown) (unknown) Other/Additional (units (unknown) date) Details:: unknown) (unknown) (no (unknown) (unknown) Patient consented (units (unknown) date) to receive unknown) services via telehealth?: Yes (unknown) (no (unknown) (unknown) Patient's son was (units (unknown) date) born in September unknown) 2020 following a move to [facility] (unknown) (no (unknown) (unknown) Patient: (units (unkno wn) date) Elizabeth Chery unknown) MR#: [id number] (unknown) (no (unknown) (unknown) Plan (units (unkno wn) date) unknown) (unknown) (no (unknown) (unknown) Presenting (units (unk nown) date) Problem Update unknown) (unknown) (no (unknown) (unknown) Previously Mailed (units (unknown) date) worksheets:: unknown) Mailed Distress Tolerance Worksheet, Managing and (unknown) (no (unknown) (unknown) Protective (units (unk nown) date) Factors: Spouse of unknown) 5 years, 15 month old son, close with sister and (unknown) (no (unknown) (unknown) Protective (units (unk nown) date) Factors:?Spouse of unknown) 5 years, 15 month old son, close with sister and (unknown) (no (unknown) (unknown) Qualifiers: (units (un known) date) unknown) (unknown) (no (unknown) (unknown) Real-time,sychron (units (unknown) date) ous services were unknown) performed via:: Vsee (unknown) (no (unknown) (unknown) Reducing Anxiety (units (unknown) date) article, Worries unknown) Worksheet, Cognitive Distortions, Challenging (unknown) (no (unknown) (unknown) Arjun: (units (unkno wn) date) unknown) (unknown) (no (unknown) (unknown) Signed By: (units (unk nown) date) unknown) (unknown) (no (unknown) (unknown) Status: Acute (units ( unknown) date) unknown) (unknown) (no (unknown) (unknown) Jennifer Silvestre, (units (unknown) date) GROUNDSKEEPER SUPERVISOR, AMMONIA BOX TENDER unknown) (unknown) (no (unknown) (unknown) TeleHealth (units (unk nown) date) unknown) (unknown) (no (unknown) (unknown) This caused more (units (unknown) date) anxiety. unknown) (unknown) (no (unknown) (unknown) This note may (units ( unknown) date) have been all or unknown) partially generated using voice recognition (unknown) (no (unknown) (unknown) Time Spent (units (unk nown) date) unknown) (unknown) (no (unknown) (unknown) Time Spent: (units (un known) date) unknown) (unknown) (no (unknown) (unknown) Were services (units ( unknown) date) performed via unknown) telephone only?: No (unknown) (no (unknown) (unknown) afterward. (units (unk nown) date) unknown) (unknown) (no (unknown) (unknown) and Mindfulness (units (unknown) date) unknown) (unknown) (no (unknown) (unknown) back to his . (units (unknown) date) unknown) (unknown) (no (unknown) (unknown) challenging to (units (unknown) date) de-escalate that unknown) evening from this situation. (unknown) (no (unknown) (unknown) clarifications (units (unknown) date) unknown) (unknown) (no (unknown) (unknown) consider trial of (units (unknown) date) trazodone unknown) (unknown) (no (unknown) (unknown) conversation but (units (unknown) date) he has not talked unknown) more about moving. (unknown) (no (unknown) (unknown) could be (units (unkno wn) date) gabapentin, unknown) propranolol, or other anxiolytics as appropriate (unknown) (no (unknown) (unknown) daytime dosing if (units (unknown) date) too sedating unknown) (unknown) (no (unknown) (unknown) depression (units (unk nown) date) recurrence: single unknown) episode Qualified Code(s): F32.1 - Major (unknown) (no (unknown) (unknown) depression. (units (un known) date) unknown) (unknown) (no (unknown) (unknown) depressive (units (unk nown) date) disorder Major unknown) depression episode severity: moderate Major (unknown) (no (unknown) (unknown) depressive (units (unk nown) date) disorder, single unknown) episode, moderate (unknown) (no (unknown) (unknown) effective. If not (units (unknown) date) tried 50mg unknown) hydroxyzine, could try that first; other options (unknown) (no (unknown) (unknown) every 4-6 weeks (units (unknown) date) until clear unknown) improvement, max dose 300mg daily (unknown) (no (unknown) (unknown) final BHIP (units (unk nown) date) appointment. unknown) (unknown) (no (unknown) (unknown) for 30 seconds. (units (unknown) date) Can also do unknown) intense exercise or movement. (unknown) (no (unknown) (unknown) for about a year (units (unknown) date) and seemed to work unknown) before . Didn't seem to work (unknown) (no (unknown) (unknown) for self and with (units (unknown) date) son. unknown) (unknown) (no (unknown) (unknown) from work. He (units ( unknown) date) asked if he could unknown) come live with them and work and send money (unknown) (no (unknown) (unknown) have occurred. If (units (unknown) date) there are any unknown) questions, please contact the Medical Records (unknown) (no (unknown) (unknown) health-options.ht (units (unknown) date) ml unknown) (unknown) (no (unknown) (unknown) holding your (units (u nknown) date) breath and using unknown) cold water or a cold pack on eyes and cheeks (unknown) (no (unknown) (unknown) [email or web address] (units (unknown) date) [employer]/us/ unknown) therapists/wa/[employer] (unknown) (no (unknown) (unknown) https://www.[email or web address] (units (unknown) date) [employer] unknown) t/hnfs/home/tw/negin e/provider-directo ry/tele (unknown) (no (unknown) (unknown) increase to 150 (units (unknown) date) mg. unknown) (unknown) (no (unknown) (unknown) increased 01/02 (units (unknown) date) from 37.5 mg. unknown) Started after nursing stopped. Plan is to (unknown) (no (unknown) (unknown) insomnia, can (units ( unknown) date) consider moving unknown) schedule to QA. I typically increase by 75mg (unknown) (no (unknown) (unknown) looking forward (units (unknown) date) to living closer unknown) to them. (unknown) (no (unknown) (unknown) lorazepam for (units ( unknown) date) panic attacks. unknown) (unknown) (no (unknown) (unknown) man passed by. (units (unknown) date) Woke up spouse who unknown) took a look, but did not find anything. Was (unknown) (no (unknown) (unknown) may occur. (units (unk nown) date) Occasional unknown) wrong-word or 'sound-alike' substitutions may have (unknown) (no (unknown) (unknown) month. (units (unkno wn) date) unknown) (unknown) (no (unknown) (unknown) night sweats (units (u nknown) date) unknown) (unknown) (no (unknown) (unknown) occurred due to (units (unknown) date) the inherent unknown) limitations of voice recognition software. Please (unknown) (no (unknown) (unknown) parents, 1 good (units (unknown) date) friend who lives unknown) locally. (unknown) (no (unknown) (unknown) patient's spouse (units (unknown) date) last week and was unknown) in distress because he had been laid off (unknown) (no (unknown) (unknown) read the note (units ( unknown) date) carefully and unknown) recognize, using context, where these substitutions (unknown) (no (unknown) (unknown) similar (units (unkno wn) date) unknown) (unknown) (no (unknown) (unknown) software. (units (unkn own) date) Although every unknown) effort is made to edit content, sign erector errors (unknown) (no (unknown) (unknown) spouse was gone (units (unknown) date) for a month for unknown) his work with the [employer]. (unknown) (no (unknown) (unknown) spouse was gone, (units (unknown) date) was taking 3 per unknown) day. Now 1-2. Finds it to be helpful. (unknown) (no (unknown) (unknown) summer but (units (unk nown) date) symptoms persisted unknown) and reach a high point in November 2019 when her (unknown) (no (unknown) (unknown) summer but (units (unk nown) date) symptoms persisted unknown) and reach a high point in 2019 when her (unknown) (no (unknown) (unknown) the beginning of (units (unknown) date) the Coronavirus unknown) outbreak. Patient felt some relief over the (unknown) (no (unknown) (unknown) thoughts. Patient (units (unknown) date) and spouse have unknown) kept in touch with him since the first (unknown) (no (unknown) (unknown) wake up (units (unkno wn) date) throughout the unknown) night and difficulty falling asleep. (unknown) (no (unknown) (unknown) which will move (units (unknown) date) them closer to her unknown) family in the [place] area. Patient is (unknown) (no (unknown) (unknown) x 100 mg) PO (units (u nknown) date) BEDTIME unknown) Result panel 8 (unknown) (no (unknown) (unknown) (no value) (units (unk nown) date) unknown) (unknown) (no (unknown) (unknown) (1) Anxiety: (units (u nknown) date) unknown) (unknown) (no (unknown) (unknown) (2) Depression: (units (unknown) date) unknown) (unknown) (no (unknown) (unknown) * 1 friend with (units (unknown) date) son around same unknown) age. (unknown) (no (unknown) (unknown) * 26 year old (units ( unknown) date) female referred to unknown) BHIP by JANAK Martinez for anxiety and (unknown) (no (unknown) (unknown) * 5 years (units (unknown) date) to spouse who is unknown) supportive. 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 (unknown) (no (unknown) (unknown) * Create a (units (unk nown) date) low-stimulation unknown) area. (unknown) (no (unknown) (unknown) * Current: (units (unk nown) date) unknown) (unknown) (no (unknown) (unknown) * Discontinued (units (unknown) date) venlafaxine unknown) (unknown) (no (unknown) (unknown) * Discussed (units (un known) date) options for unknown) accessing ongoing therapy (see below). (unknown) (no (unknown) (unknown) * Looking forward (units (unknown) date) to the training unknown) her father is providing her with the intention (unknown) (no (unknown) (unknown) * Make a list of (units (unknown) date) strategies to unknown) use/try when feeling overwhelmed and panicky. (unknown) (no (unknown) (unknown) * Mom in [place], (units (unknown) date) dad in [place]. Mom unknown) comes monthly and dad comes every other (unknown) (no (unknown) (unknown) * New (units (unkno wn) date) desvenlafaxine unknown) succinate ER (Pristiq) 100 mg PO DAILY - because of (unknown) (no (unknown) (unknown) * Older sister (units (unknown) date) lives with mother. unknown) Very close with sister. (unknown) (no (unknown) (unknown) * Ongoing stress (units (unknown) date) related to brother unknown) in law's marital situation, in [place]. (unknown) (no (unknown) (unknown) * Overall, some (units (unknown) date) reduction in unknown) feelings of panic and anxiety. Shares that she has (unknown) (no (unknown) (unknown) * Past: (units (unkno wn) date) unknown) (unknown) (no (unknown) (unknown) * Patient has been (units (unknown) date) participating in unknown) [facility] since December 2021. Today is patient's (unknown) (no (unknown) (unknown) * Son Musa. (units (unk nown) date) unknown) (unknown) (no (unknown) (unknown) * Spouse is also (units (unknown) date) waiting to get unknown) into the bridge courses through [employer], which (unknown) (no (unknown) (unknown) * Strategies for (units (unknown) date) handling intense unknown) emotions: change your body chemistry by (unknown) (no (unknown) (unknown) * When (units (unknown) date) changed to unknown) sertraline. (unknown) (no (unknown) (unknown) * You can search (units (unknown) date) for a therapist unknown) here, who takes : (unknown) (no (unknown) (unknown) * citalopram - (units (unknown) date) was taking before unknown) and after son was born. Was taking (unknown) (no (unknown) (unknown) * (units (unkno wn) date) https://www.NetScalerar unknown) e.mil/CoveredServi ny/Mental/Getting MHCare/Prime_Appts (unknown) (no (unknown) (unknown) * hydroxyzine (units ( unknown) date) pamoate 25 mg unknown) capsule 25 mg PO TID PRN - In mid November, while (unknown) (no (unknown) (unknown) * venlafaxine 75 (units (unknown) date) mg tablet,extended unknown) release 24 hr 75 mg PO BEDTIME (unknown) (no (unknown) (unknown) * (units (unkno wn) date) unknown) (unknown) (no (unknown) (unknown) - Can consider (units (unknown) date) new agent prn unknown) panic if appropriate if hydroxyzine no longer (unknown) (no (unknown) (unknown) - Contingency if (units (unknown) date) not effective: unknown) consider duloxetine (unknown) (no (unknown) (unknown) - Feel free to (units (unknown) date) reach out to Dr. eric Minaya via workload message with questions or (unknown) (no (unknown) (unknown) - First official (units (unknown) date) week of taking 150 unknown) mg. of venlafaxine. (unknown) (no (unknown) (unknown) - Gabapentin: (units ( unknown) date) consider increase unknown) in bedtime dose as next step; could also stop (unknown) (no (unknown) (unknown) - If gabapentin (units (unknown) date) not effective for unknown) increasing sleep time or falling asleep, (unknown) (no (unknown) (unknown) - Taking 2 (units (unkn own) date) hydroxyzine per unknown) day. One in the a.m. and one at bedtime. Continues to (unknown) (no (unknown) (unknown) - Venlafaxine ER: (units (unknown) date) Agree with plan to unknown) continue increase if tolerated; if causing (unknown) (no (unknown) (unknown) - Venlafaxine ER: (units (unknown) date) Currently on unknown) 150mg. Room to increase if tolerated (unknown) (no (unknown) (unknown) - Venlafaxine: (units ( unknown) date) consider increase unknown) to 300mg vs. switch to Pristiq (desvenlafaxine) (unknown) (no (unknown) (unknown) 07/15/22 (units (unkno wn) date) unknown) (unknown) (no (unknown) (unknown) 07/16/22 0854 (units ( unknown) date) unknown) (unknown) (no (unknown) (unknown) 100mg daily. (units (un known) date) Direct switch is unknown) typically well tolerated since these agents are so (unknown) (no (unknown) (unknown) 01/08/22 (units (unkno wn) date) unknown) (unknown) (no (unknown) (unknown) 01/08/22 24 20 (units ( unknown) date) unknown) (unknown) (no (unknown) (unknown) 01/13/22 - (units ( unknown) date) [facility] unknown) RECOMMENDATIONS + TREATMENT PLAN for PCP [place]: (unknown) (no (unknown) (unknown) 26 year old (units (un known) date) participating in unknown) [facility] for anxiety and depression. (unknown) (no (unknown) (unknown) 01/28/22 20 18 (units ( unknown) date) unknown) (unknown) (no (unknown) (unknown) 01/28/22 (units (unkno wn) date) unknown) (unknown) (no (unknown) (unknown) [id number] (units (unkno wn) date) unknown) (unknown) (no (unknown) (unknown) 02/25/22 18 15 (units ( unknown) date) unknown) (unknown) (no (unknown) (unknown) 03/31/22 (units (unk nown) date) [facility] unknown) RECOMMENDATIONS + TREATMENT PLAN for PCP (Referred by (unknown) (no (unknown) (unknown) 04/15/22 - Tried (units (unknown) date) 50 mg of unknown) hydroxyzine. [place] sleepy, but was not able to sleep. (unknown) (no (unknown) (unknown) 04/15/22 18 15 (units ( unknown) date) unknown) (unknown) (no (unknown) (unknown) 05/14/22 - (units ( unknown) date) [facility] BHIP unknown) RECOMMENDATIONS + TREATMENT PLAN for PCP STOCK SHIPPER (unknown) (no (unknown) (unknown) 60 minutes (units (unk nown) date) unknown) (unknown) (no (unknown) (unknown) 05/28/22 - PCP (units ( unknown) date) JANAK Díaz's unknown) note: (unknown) (no (unknown) (unknown) 06/16/22 - Decrease (units (unknown) date) in night sweats. unknown) (unknown) (no (unknown) (unknown) 06/16/22 16 12 (units (u nknown) date) unknown) (unknown) (no (unknown) (unknown) 07/15/22 - Today (units (unknown) date) is patient's final unknown) BH appointment. (unknown) (no (unknown) (unknown) STOCK SHIPPER Rashmi, (units ( unknown) date) scheduled in April unknown) with JANAK Díaz): (unknown) (no (unknown) (unknown) Active/Remission (units (unknown) date) status: currently unknown) active Depression Type: major (unknown) (no (unknown) (unknown) Age/Sex: 27 / F (units (unknown) date) Date of Service: unknown) (unknown) (no (unknown) (unknown) All participants (units (unknown) date) + their role: unknown) (Providers,Parent, Spouse,etc): (unknown) (no (unknown) (unknown) DEDRA Cho (units ( unknown) date) [id number] unknown) (unknown) (no (unknown) (unknown) Attending Dr: (units ( unknown) date) Jennifer Silvestre GROUNDSKEEPER SUPERVISOR unknown) (unknown) (no (unknown) (unknown) [facility] Assessment + (units (unknown) date) Plan unknown) (unknown) (no (unknown) (unknown) BH Property Valuer (units (unknown) date) Follow-Up unknown) (unknown) (no (unknown) (unknown) [facility] Goal #1: (units ( unknown) date) Skills to cope unknown) with anxiety and depression (unknown) (no (unknown) (unknown) BHIP Goal (units (unkn own) date) #1:?Skills to cope unknown) with anxiety and depression (unknown) (no (unknown) (unknown) BHIP Goal (units (unkn own) date) Progress#1: 8 unknown) (unknown) (no (unknown) (unknown) BHIP Goal (units (unkn own) date) Progress#1:?3 unknown) (unknown) (no (unknown) (unknown) Care Management (units (unknown) date) Visit unknown) (unknown) (no (unknown) (unknown) Case Formulation (units (unknown) date) unknown) (unknown) (no (unknown) (unknown) Cognitive (units (unkn own) date) Behavioral unknown) Therapy, Behavioral Activation, Motivational Interviewing (unknown) (no (unknown) (unknown) : 1995 (units (unknown) date) Acct:[id number] unknown) (unknown) (no (unknown) (unknown) Date PHQ9 GAD7 (units (unknown) date) unknown) (unknown) (no (unknown) (unknown) Dept at (units (unkno wn) date) . unknown) (unknown) (no (unknown) (unknown) Discharge Plan: (units (unknown) date) unknown) (unknown) (no (unknown) (unknown) Documented By: (units (unknown) date) Jennifer Silvestre unknown) 07/15/22 0835 (unknown) (no (unknown) (unknown) Family: (units (unkno wn) date) unknown) (unknown) (no (unknown) (unknown) [facility] ([facility] date[facility] unknown) (unknown) (no (unknown) (unknown) Goals + Progress (units (unknown) date) unknown) (unknown) (no (unknown) (unknown) Interventions (units ( unknown) date) unknown) (unknown) (no (unknown) (unknown) Loc: [facility] (units (unkno wn) date) unknown) (unknown) (no (unknown) (unknown) Location of (units (un known) date) patient:: Home unknown) (unknown) (no (unknown) (unknown) Location of (units (un known) date) provider:: - unknown) [address] (unknown) (no (unknown) (unknown) Medication Update (units (unknown) date) unknown) (unknown) (no (unknown) (unknown) Negative (units (unkno wn) date) Thoughts, unknown) Grounding Techniques and article Activating Parasympathetic (unknown) (no (unknown) (unknown) Nervous System. (units (unknown) date) unknown) (unknown) (no (unknown) (unknown) Ongoing: (units (unkno wn) date) unknown) (unknown) (no (unknown) (unknown) Other (units (unkno wn) date) unknown) (unknown) (no (unknown) (unknown) Other/Additional (units (unknown) date) Details:: unknown) (unknown) (no (unknown) (unknown) Patient consented (units (unknown) date) to receive unknown) services via telehealth?: Yes (unknown) (no (unknown) (unknown) Patient's son was (units (unknown) date) born in September unknown) 2019 following a move to [facility] (unknown) (no (unknown) (unknown) Patient: (units (unkno wn) date) Elizabeth Chery unknown) MR#: [id number] (unknown) (no (unknown) (unknown) Plan (units (unkno wn) date) unknown) (unknown) (no (unknown) (unknown) Presenting (units (unk nown) date) Problem Update unknown) (unknown) (no (unknown) (unknown) Previously Mailed (units (unknown) date) worksheets:: unknown) Mailed Distress Tolerance Worksheet, Managing and (unknown) (no (unknown) (unknown) Protective (units (unk nown) date) Factors: Spouse of unknown) 5 years, 15 month old son, close with sister and (unknown) (no (unknown) (unknown) Protective (units (unk nown) date) Factors:?Spouse of unknown) 5 years, 15 month old son, close with sister and (unknown) (no (unknown) (unknown) Qualifiers: (units (un known) date) unknown) (unknown) (no (unknown) (unknown) Real-time,sychron (units (unknown) date) ous services were unknown) performed via:: Vsee (unknown) (no (unknown) (unknown) Reducing Anxiety (units (unknown) date) article, Worries unknown) Worksheet, Cognitive Distortions, Challenging (unknown) (no (unknown) (unknown) Arjun: (units (unkno wn) date) unknown) (unknown) (no (unknown) (unknown) Signed By: (units (unk nown) date) <Electronically unknown) signed by ANMNARIE Ruth> (unknown) (no (unknown) (unknown) Signed (units (unkno wn) date) unknown) (unknown) (no (unknown) (unknown) Status: Acute (units ( unknown) date) unknown) (unknown) (no (unknown) (unknown) Jennifer Silvestre, (units (unknown) date) GROUNDSKEEPER SUPERVISOR, AMMONIA BOX TENDER unknown) (unknown) (no (unknown) (unknown) TeleHealth (units (unk nown) date) unknown) (unknown) (no (unknown) (unknown) This caused more (units (unknown) date) anxiety. unknown) (unknown) (no (unknown) (unknown) This note may (units ( unknown) date) have been all or unknown) partially generated using voice recognition (unknown) (no (unknown) (unknown) Time Spent (units (unk nown) date) unknown) (unknown) (no (unknown) (unknown) Time Spent: (units (un known) date) unknown) (unknown) (no (unknown) (unknown) Were services (units ( unknown) date) performed via unknown) telephone only?: No (unknown) (no (unknown) (unknown) afterward. (units (unk nown) date) unknown) (unknown) (no (unknown) (unknown) and Mindfulness (units (unknown) date) unknown) (unknown) (no (unknown) (unknown) been able to calm (units (unknown) date) herself down by unknown) laying on the floor with an ice pack on her (unknown) (no (unknown) (unknown) chest. (units (unkno wn) date) unknown) (unknown) (no (unknown) (unknown) clarifications (units (unknown) date) unknown) (unknown) (no (unknown) (unknown) consider trial of (units (unknown) date) trazodone unknown) (unknown) (no (unknown) (unknown) could be (units (unkno wn) date) gabapentin, unknown) propranolol, or other anxiolytics as appropriate (unknown) (no (unknown) (unknown) daytime dosing if (units (unknown) date) too sedating unknown) (unknown) (no (unknown) (unknown) depression (units (unk nown) date) recurrence: single unknown) episode Qualified Code(s): F32.1 - Major (unknown) (no (unknown) (unknown) depression. (units (un known) date) Current PCP is unknown) JANAK Melendez. (unknown) (no (unknown) (unknown) depressive (units (unk nown) date) disorder Major unknown) depression episode severity: moderate Major (unknown) (no (unknown) (unknown) depressive (units (unk nown) date) disorder, single unknown) episode, moderate (unknown) (no (unknown) (unknown) effective. If not (units (unknown) date) tried 50mg unknown) hydroxyzine, could try that first; other options (unknown) (no (unknown) (unknown) every 4-6 weeks (units (unknown) date) until clear unknown) improvement, max dose 300mg daily (unknown) (no (unknown) (unknown) final BHIP (units (unk nown) date) appointment. unknown) (unknown) (no (unknown) (unknown) for 30 seconds. (units (unknown) date) Can also do unknown) intense exercise or movement. (unknown) (no (unknown) (unknown) for about a year (units (unknown) date) and seemed to work unknown) before . Didn't seem to work (unknown) (no (unknown) (unknown) for self and with (units (unknown) date) son. unknown) (unknown) (no (unknown) (unknown) have occurred. If (units (unknown) date) there are any unknown) questions, please contact the Medical Records (unknown) (no (unknown) (unknown) health-options.ht (units (unknown) date) ml unknown) (unknown) (no (unknown) (unknown) holding your (units (u nknown) date) breath and using unknown) cold water or a cold pack on eyes and cheeks (unknown) (no (unknown) (unknown) [email or web address] (units (unknown) date) [employer]/us/ unknown) therapists/[place] (unknown) (no (unknown) (unknown) [email or web address]://www.[email or web address] Watch (units (unknown) date) [place] unknown) t/hnfs/home/tw/negin e/provider-directo ry/tele (unknown) (no (unknown) (unknown) increase to 150 (units (unknown) date) mg. unknown) (unknown) (no (unknown) (unknown) increased 01/02 (units (unknown) date) from 37.5 mg. unknown) Started after nursing stopped. Plan is to (unknown) (no (unknown) (unknown) insomnia, can (units ( unknown) date) consider moving unknown) schedule to [facility]. I typically increase by 75mg (unknown) (no (unknown) (unknown) lorazepam for (units ( unknown) date) panic attacks. unknown) (unknown) (no (unknown) (unknown) may occur. (units (unk nown) date) Occasional unknown) wrong-word or 'sound-alike' substitutions may have (unknown) (no (unknown) (unknown) month. (units (unkno wn) date) unknown) (unknown) (no (unknown) (unknown) night sweats (units (u nknown) date) unknown) (unknown) (no (unknown) (unknown) occurred due to (units (unknown) date) the inherent unknown) limitations of voice recognition software. Please (unknown) (no (unknown) (unknown) of moving forward (units (unknown) date) with graphic unknown) design. (unknown) (no (unknown) (unknown) parents, 1 good (units (unknown) date) friend who lives unknown) locally. (unknown) (no (unknown) (unknown) read the note (units ( unknown) date) carefully and unknown) recognize, using context, where these substitutions (unknown) (no (unknown) (unknown) similar (units (unkno wn) date) unknown) (unknown) (no (unknown) (unknown) software. (units (unkn own) date) Although every unknown) effort is made to edit content, sign erector errors (unknown) (no (unknown) (unknown) spouse was gone (units (unknown) date) for a month for unknown) his work with [employer]. Currently managing (unknown) (no (unknown) (unknown) spouse was gone (units (unknown) date) for a month for unknown) his work with [employer]. (unknown) (no (unknown) (unknown) spouse was gone, (units (unknown) date) was taking 3 per unknown) day. Now 1-2. Finds it to be helpful. (unknown) (no (unknown) (unknown) summer but (units (unk nown) date) symptoms persisted unknown) and reach a high point in November 2019 when her (unknown) (no (unknown) (unknown) summer but (units (unk nown) date) symptoms persisted unknown) and reach a high point in 2019 when her (unknown) (no (unknown) (unknown) symptoms and (units (u nknown) date) looking forward to unknown) IT training and moving closer to family. (unknown) (no (unknown) (unknown) the beginning of (units (unknown) date) the Coronavirus unknown) outbreak. Patient felt some relief over the (unknown) (no (unknown) (unknown) wake up (units (unkno wn) date) throughout the unknown) night and difficulty falling asleep. (unknown) (no (unknown) (unknown) will be in the (units (unknown) date) [place] area near unknown) patient's family. (unknown) (no (unknown) (unknown) x 100 mg) PO (units (u nknown) date) BEDTIME unknown) Result panel 9 (unknown) (no (unknown) (unknown) (no value) (units (unk nown) date) unknown) (unknown) (no (unknown) (unknown) (1) Anxiety: (units (u nknown) date) unknown) (unknown) (no (unknown) (unknown) (2) Depression: (units (unknown) date) unknown) (unknown) (no (unknown) (unknown) - Consideration (units (unknown) date) in weekly unknown) caseload review with psychiatric library sales consultant and (unknown) (no (unknown) (unknown) - Entering (units (unkn own) date) patients into a unknown) registry for tracking patient follow-up and progress; (unknown) (no (unknown) (unknown) - Initial (units (unkno wn) date) assessment, unknown) including administration of validated scales and resulting (unknown) (no (unknown) (unknown) - Ongoing (units (unkn own) date) collaboration and unknown) coordination with treating providers; and (unknown) (no (unknown) (unknown) - Outreach and (units (unknown) date) engagement of unknown) patients; (unknown) (no (unknown) (unknown) - Provision of (units (unknown) date) brief unknown) interventions using evidence-based treatments such as (unknown) (no (unknown) (unknown) - Relapse (units (unkn own) date) prevention unknown) planning and preparation for discharge from active (unknown) (no (unknown) (unknown) - Tracking (units (unk nown) date) patient follow-up unknown) and progress using validated rating scales; (unknown) (no (unknown) (unknown) 07/16/22 1404 (units ( unknown) date) unknown) (unknown) (no (unknown) (unknown) 07/16/22 (units (unkno wn) date) unknown) (unknown) (no (unknown) (unknown) [id number] (units (unkno wn) date) unknown) (unknown) (no (unknown) (unknown) Age/Sex: 27 / F (units (unknown) date) Date of Service: unknown) (unknown) (no (unknown) (unknown) DEDRA Cho (units ( unknown) date) [id number] unknown) (unknown) (no (unknown) (unknown) Attending Dr: (units ( unknown) date) Jennifer Silvestre GROUNDSKEEPER SUPERVISOR unknown) (unknown) (no (unknown) (unknown) BHIP Assessment (units (unknown) date) + Plan unknown) (unknown) (no (unknown) (unknown) BHIP Monthly (units (u nknown) date) Summary: June unknown) 2021, 120 minutes (unknown) (no (unknown) (unknown) Care Management (units (unknown) date) Visit unknown) (unknown) (no (unknown) (unknown) : 1995 (units (unknown) date) Acct:[id number] unknown) (unknown) (no (unknown) (unknown) Depression Type: (units (unknown) date) major depressive unknown) disorder Major depression recurrence: (unknown) (no (unknown) (unknown) Dept at (units (unkno wn) date) . unknown) (unknown) (no (unknown) (unknown) Documented By: (units (unknown) date) Jennifer Silvestre unknown) 07/16/22 1404 (unknown) (no (unknown) (unknown) [facility]units (unknown[facility] date[facility] unknown) (unknown) (no (unknown) (unknown) Integration (units (unk nown) date) Program, with unknown) behavioral health physician primary care sports medicine, in consultation with a (unknown) (no (unknown) (unknown) Loc: [facility] (units (unkno wn) date) unknown) (unknown) (no (unknown) (unknown) Note (units (unkno wn) date) unknown) (unknown) (no (unknown) (unknown) Notes (units (unkno wn) date) unknown) (unknown) (no (unknown) (unknown) Patient is (units (unk nown) date) participating in unknown) care with [facility] (unknown) (no (unknown) (unknown) Patient: (units (unkno wn) date) Elizabeth Chery unknown) MR#: [id number] (unknown) (no (unknown) (unknown) Qualifiers: (units (un known) date) unknown) (unknown) (no (unknown) (unknown) Signed By: (units (unk nown) date) <Electronically unknown) signed by ANNMARIE Ruth> (unknown) (no (unknown) (unknown) Signed (units (unkno wn) date) unknown) (unknown) (no (unknown) (unknown) Status: Acute (units ( unknown) date) unknown) (unknown) (no (unknown) (unknown) This note may (units ( unknown) date) have been all or unknown) partially generated using voice recognition (unknown) (no (unknown) (unknown) activities; (units (un known) date) unknown) (unknown) (no (unknown) (unknown) behavioral (units (unk nown) date) activation, unknown) problem-solving treatment, and other focused treatment (unknown) (no (unknown) (unknown) disorder, single (units (unknown) date) episode, moderate unknown) (unknown) (no (unknown) (unknown) episode (units (unkno wn) date) severity: unknown) moderate Qualified Code(s): F32.1 - Major depressive (unknown) (no (unknown) (unknown) following (units (unkn own) date) elements unknown) documented individually as appropriate: (unknown) (no (unknown) (unknown) have occurred. (units (unknown) date) If there are any unknown) questions, please contact the Medical Records (unknown) (no (unknown) (unknown) in a treatment (units (unknown) date) plan; unknown) (unknown) (no (unknown) (unknown) may occur. (units (unk nown) date) Occasional unknown) wrong-word or 'sound-alike' substitutions may have (unknown) (no (unknown) (unknown) modifications to (units (unknown) date) treatment, if unknown) recommended; (unknown) (no (unknown) (unknown) occurred due to (units (unknown) date) the inherent unknown) limitations of voice recognition software. Please (unknown) (no (unknown) (unknown) psychiatric (units (un known) date) library sales consultant, and unknown) directed by the treating provider, with the (unknown) (no (unknown) (unknown) read the note (units ( unknown) date) carefully and unknown) recognize, using context, where these substitutions (unknown) (no (unknown) (unknown) single episode (units (unknown) date) Active/Remission unknown) status: currently active Major depression (unknown) (no (unknown) (unknown) software. (units (unkn own) date) Although every unknown) effort is made to edit content, sign erector errors (unknown) (no (unknown) (unknown) treatment. (units (unk nown) date) unknown) Result panel 10 (unknown) (no (unknown) (unknown) (no value) (units (unk nown) date) unknown) (unknown) (no (unknown) (unknown) 11/21/20 [History (units (unknown) date) Confirmed unknown) 08/20/22] (unknown) (no (unknown) (unknown) 05/15/21 [Rx (units (u nknown) date) Confirmed unknown) 08/20/22] (unknown) (no (unknown) (unknown) 05/28/22 [Rx (units (u nknown) date) Confirmed unknown) 08/20/22] (unknown) (no (unknown) (unknown) 08/20/22 (units (unkno wn) date) unknown) (unknown) (no (unknown) (unknown) 08/20/22] (units (unkn own) date) unknown) (unknown) (no (unknown) (unknown) 14:57 (units (unkno wn) date) unknown) (unknown) (no (unknown) (unknown) [id number] (units (unkno wn) date) unknown) (unknown) (no (unknown) (unknown) Accompanied by: (units (unknown) date) Self / Same As unknown) Patient (unknown) (no (unknown) (unknown) Age/Sex: 27 / F (units (unknown) date) Date of Service: unknown) (unknown) (no (unknown) (unknown) Allergies (units (unkn own) date) unknown) (unknown) (no (unknown) (unknown) [place], [place] (units ( unknown) date) [id number] unknown) (unknown) (no (unknown) (unknown) Anxiety (units (unkno wn) date) unknown) (unknown) (no (unknown) (unknown) Attending Dr: (units ( unknown) date) Gustavo BRICENO unknown) (unknown) (no (unknown) (unknown) BMI 34.4 (units (unkno wn) date) unknown) (unknown) (no (unknown) (unknown) BP 130/70 (units (unkn own) date) unknown) (unknown) (no (unknown) (unknown) Blood Pressure (units (unknown) date) Location Lt unknown) brachial (unknown) (no (unknown) (unknown) Confirmed (units (unkn own) date) 08/20/22] unknown) (unknown) (no (unknown) (unknown) : 1995 (units (unknown) date) Acct:[id number] unknown) (unknown) (no (unknown) (unknown) Date of Last (units (u nknown) date) Menstrual Period: unknown) 07/25/22 (unknown) (no (unknown) (unknown) Depression (units (unk nown) date) unknown) (unknown) (no (unknown) (unknown) Dept at (units (unkno wn) date) . unknown) (unknown) (no (unknown) (unknown) Diskus) 1 inh (units ( unknown) date) inhalation BID unknown) #180 ea 05/01/22 [Rx Confirmed 08/20/22] (unknown) (no (unknown) (unknown) Documented By: (units (unknown) date) Gustavo Díaz unknown) 08/20/22 1456 (unknown) (no (unknown) (unknown) Draft (units (unkno wn) date) unknown) (unknown) (no (unknown) (unknown) Family Practice (units (unknown) date) Office Visit unknown) (unknown) (no (unknown) (unknown) [facility] (units ([facility] date[facility] unknown) (unknown) (no (unknown) (unknown) GERD (units (unkno wn) date) (gastroesophageal unknown) reflux disease) (2019) (unknown) (no (unknown) (unknown) Health Management (units (unknown) date) reviewed with unknown) patient: Yes (unknown) (no (unknown) (unknown) Health Management (units (unknown) date) unknown) (unknown) (no (unknown) (unknown) Height 5 ft 8 in (units (unknown) date) unknown) (unknown) (no (unknown) (unknown) Insomnia (units (unkno wn) date) unknown) (unknown) (no (unknown) (unknown) Intake Note: (units (u nknown) date) unknown) (unknown) (no (unknown) (unknown) Intake performed (units (unknown) date) by: Sabrina Carranza unknown) M (unknown) (no (unknown) (unknown) Intake (units (unkno wn) date) unknown) (unknown) (no (unknown) (unknown) Intake- Clincial (units (unknown) date) Staff unknown) (unknown) (no (unknown) (unknown) Irregular (units (unkn own) date) menstrual bleeding unknown) (10/2021) (unknown) (no (unknown) (unknown) Last Menstural (units (unknown) date) Cycle + Details unknown) (unknown) (no (unknown) (unknown) Loc: [facility] (units (unkno wn) date) unknown) (unknown) (no (unknown) (unknown) Medical History (units (unknown) date) (Reviewed 07/02/22 unknown) @ 14:54 by Gustavo Arjun, STOCK SHIPPER) (unknown) (no (unknown) (unknown) Medications (units (un known) date) unknown) (unknown) (no (unknown) (unknown) Moderate (units (unkno wn) date) intermittent unknown) asthma (unknown) (no (unknown) (unknown) Moderate (units (unkno wn) date) persistent asthma unknown) (unknown) (no (unknown) (unknown) Oxygen Delivery (units (unknown) date) Method room air unknown) (unknown) (no (unknown) (unknown) PFSH (units (unkno wn) date) unknown) (unknown) (no (unknown) (unknown) PO DAILY #90 tabs (units (unknown) date) 06/18/22 [Rx unknown) Confirmed 08/20/22] (unknown) (no (unknown) (unknown) Patient: (units (unkno wn) date) Elizabeth Chery unknown) MR#: [id number] (unknown) (no (unknown) (unknown) Penicillins (units (un known) date) Allergy (Unknown, unknown) Verified 08/20/22 14:56) (unknown) (no (unknown) (unknown) Position Sitting (units (unknown) date) unknown) (unknown) (no (unknown) (unknown) Pulse 80 (units (unkno wn) date) unknown) (unknown) (no (unknown) (unknown) Pulse Oximetry (units (unknown) date) (%) 98 unknown) (unknown) (no (unknown) (unknown) Pulse Source (units (u nknown) date) Monitor unknown) (unknown) (no (unknown) (unknown) Reason For Visit (units (unknown) date) unknown) (unknown) (no (unknown) (unknown) Respiration 16 (units (unknown) date) unknown) (unknown) (no (unknown) (unknown) Signed By: (units (unk nown) date) unknown) (unknown) (no (unknown) (unknown) Skin wound from (units (unknown) date) surgical incision unknown) (unknown) (no (unknown) (unknown) Smoking Status: (units (unknown) date) Never smoker unknown) (unknown) (no (unknown) (unknown) Sulfa (units (unkno wn) date) (Sulfonamide unknown) Antibiotics) Allergy (Unknown, Verified 08/20/22 14:56) (unknown) (no (unknown) (unknown) Temp 97.5 F L (units ( unknown) date) unknown) (unknown) (no (unknown) (unknown) Temp Source (units (un known) date) Temporal Artery unknown) Scan (unknown) (no (unknown) (unknown) This note may (units ( unknown) date) have been all or unknown) partially generated using voice recognition (unknown) (no (unknown) (unknown) Tobacco + (units (unkn own) date) Substance Use unknown) (unknown) (no (unknown) (unknown) Tobacco Status (units (unknown) date) unknown) (unknown) (no (unknown) (unknown) Visit Reasons: (units (unknown) date) WWE/PAP/F/U MENTAL unknown) HEALTH (unknown) (no (unknown) (unknown) Vitals (units (unkno wn) date) unknown) (unknown) (no (unknown) (unknown) WWE/PAP and check (units (unknown) date) if anxiety gets unknown) worse with her periods. (unknown) (no (unknown) (unknown) Weight 227 lb (units ( unknown) date) unknown) (unknown) (no (unknown) (unknown) albuterol sulfate (units (unknown) date) 90 mcg/actuation unknown) aerosol inhaler 2 puff inhalation Q4-6H PRN (unknown) (no (unknown) (unknown) alcohol intake: (units (unknown) date) never unknown) (unknown) (no (unknown) (unknown) cholecalciferol (units (unknown) date) (vitamin D3) 25 unknown) mcg (1,000 unit) capsule 25 mcg PO DAILY (unknown) (no (unknown) (unknown) desvenlafaxine (units (unknown) date) succinate 100 mg unknown) tablet,extended release 24 hr (Pristiq) 100 mg (unknown) (no (unknown) (unknown) famotidine 20 mg (units (unknown) date) tablet (Acid unknown) Design Quality Engineer (famotidine)) 20 mg PO DAILY #90 tabs (unknown) (no (unknown) (unknown) fluticasone 250 (units (unknown) date) mcg-salmeterol 50 unknown) mcg/dose blistr powdr for inhalation (Advair (unknown) (no (unknown) (unknown) have occurred. If (units (unknown) date) there are any unknown) questions, please contact the Medical Records (unknown) (no (unknown) (unknown) may occur. (units (unk nown) date) Occasional unknown) wrong-word or 'sound-alike' substitutions may have (unknown) (no (unknown) (unknown) montelukast 10 mg (units (unknown) date) tablet 10 mg PO unknown) DAILY #90 tabs 05/28/22 [Rx Confirmed (unknown) (no (unknown) (unknown) norethindrone (units ( unknown) date) (contraceptive) unknown) 0.35 mg tablet (Ely) 0.35 mg PO DAILY #84 tabs (unknown) (no (unknown) (unknown) occurred due to (units (unknown) date) the inherent unknown) limitations of voice recognition software. Please (unknown) (no (unknown) (unknown) read the note (units ( unknown) date) carefully and unknown) recognize, using context, where these substitutions (unknown) (no (unknown) (unknown) second hand (units (un known) date) exposure: No unknown) (unknown) (no (unknown) (unknown) shortness of (units (u nknown) date) breath or wheezing unknown) #17 grams 05/01/22 [Rx Confirmed 08/20/22] (unknown) (no (unknown) (unknown) software. (units (unkn own) date) Although every unknown) effort is made to edit content, sign erector errors (unknown) (no (unknown) (unknown) substance use (units ( unknown) date) type: does not use unknown) (unknown) (no (unknown) (unknown) trazodone 50 mg (units (unknown) date) tablet 100 mg PO unknown) BEDTIME PRN sleep #180 tabs 07/02/22 [Rx Result panel 11 (unknown) (no (unknown) (unknown) (no value) (units (unk nown) date) unknown) (unknown) (no (unknown) (unknown) 11/21/20 [History (units (unknown) date) Confirmed unknown) 08/20/22] (unknown) (no (unknown) (unknown) 05/15/21 [Rx (units (u nknown) date) Confirmed unknown) 08/20/22] (unknown) (no (unknown) (unknown) 05/28/22 [Rx (units (u nknown) date) Confirmed unknown) 08/20/22] (unknown) (no (unknown) (unknown) 08/20/22 (units (unkno wn) date) unknown) (unknown) (no (unknown) (unknown) 08/20/22] (units (unkn own) date) unknown) (unknown) (no (unknown) (unknown) 14:57 (units (unkno wn) date) unknown) (unknown) (no (unknown) (unknown) [id number] (units (unkno wn) date) unknown) (unknown) (no (unknown) (unknown) Accompanied by: (units (unknown) date) Self / Same As unknown) Patient (unknown) (no (unknown) (unknown) Age/Sex: 27 / F (units (unknown) date) Date of Service: unknown) (unknown) (no (unknown) (unknown) Allergies (units (unkn own) date) unknown) (unknown) (no (unknown) (unknown) [place], [place] (units ( unknown) date) [id number] unknown) (unknown) (no (unknown) (unknown) Anxiety (units (unkno wn) date) unknown) (unknown) (no (unknown) (unknown) Assessment + Plan (units (unknown) date) unknown) (unknown) (no (unknown) (unknown) Attending Dr: (units ( unknown) date) Gustavo BRICENO unknown) (unknown) (no (unknown) (unknown) BMI 34.4 (units (unkno wn) date) unknown) (unknown) (no (unknown) (unknown) BP 130/70 (units (unkn own) date) unknown) (unknown) (no (unknown) (unknown) Blood Pressure (units (unknown) date) Location Lt unknown) brachial (unknown) (no (unknown) (unknown) Confirmed (units (unkn own) date) 08/20/22] unknown) (unknown) (no (unknown) (unknown) : 1995 (units (unknown) date) Acct:[id number] unknown) (unknown) (no (unknown) (unknown) Date of Last (units (u nknown) date) Menstrual Period: unknown) 07/25/22 (unknown) (no (unknown) (unknown) Depression (units (unk nown) date) unknown) (unknown) (no (unknown) (unknown) Dept at (units (unkno wn) date) . unknown) (unknown) (no (unknown) (unknown) Diskus) 1 inh (units ( unknown) date) inhalation BID unknown) #180 ea 05/01/22 [Rx Confirmed 08/20/22] (unknown) (no (unknown) (unknown) Documented By: (units (unknown) date) Gustavo Díaz unknown) 08/20/22 1456 (unknown) (no (unknown) (unknown) Draft (units (unkno wn) date) unknown) (unknown) (no (unknown) (unknown) Family Practice (units (unknown) date) Office Visit unknown) (unknown) (no (unknown) (unknown) [facility] (units ([facility] date[facility] unknown) (unknown) (no (unknown) (unknown) GERD (units (unkno wn) date) (gastroesophageal unknown) reflux disease) (2019) (unknown) (no (unknown) (unknown) Health Management (units (unknown) date) reviewed with unknown) patient: Yes (unknown) (no (unknown) (unknown) Health Management (units (unknown) date) unknown) (unknown) (no (unknown) (unknown) Height 5 ft 8 in (units (unknown) date) unknown) (unknown) (no (unknown) (unknown) Insomnia (units (unkno wn) date) unknown) (unknown) (no (unknown) (unknown) Intake Note: (units (u nknown) date) unknown) (unknown) (no (unknown) (unknown) Intake performed (units (unknown) date) by: Sabrina Carranza unknown) M (unknown) (no (unknown) (unknown) Intake (units (unkno wn) date) unknown) (unknown) (no (unknown) (unknown) Intake- Clincial (units (unknown) date) Staff unknown) (unknown) (no (unknown) (unknown) Irregular (units (unkn own) date) menstrual bleeding unknown) (10/2021) (unknown) (no (unknown) (unknown) Last Menstural (units (unknown) date) Cycle + Details unknown) (unknown) (no (unknown) (unknown) Loc: [facility] (units (unkno wn) date) unknown) (unknown) (no (unknown) (unknown) Medical History (units (unknown) date) (Reviewed 07/02/22 unknown) @ 14:54 by JANAK Melendez) (unknown) (no (unknown) (unknown) Medications (units (un known) date) unknown) (unknown) (no (unknown) (unknown) Moderate (units (unkno wn) date) intermittent unknown) asthma (unknown) (no (unknown) (unknown) Moderate (units (unkno wn) date) persistent asthma unknown) (unknown) (no (unknown) (unknown) Orders (units (unkno wn) date) unknown) (unknown) (no (unknown) (unknown) Orders: (units (unkno wn) date) unknown) (unknown) (no (unknown) (unknown) Oxygen Delivery (units (unknown) date) Method room air unknown) (unknown) (no (unknown) (unknown) PAP with reflex (units (unknown) date) HPV Today Z00.00 - unknown) Encounter for general adult medical (unknown) (no (unknown) (unknown) PFSH (units (unkno wn) date) unknown) (unknown) (no (unknown) (unknown) PO DAILY #90 tabs (units (unknown) date) 06/18/22 [Rx unknown) Confirmed 08/20/22] (unknown) (no (unknown) (unknown) Patient: (units (unkno wn) date) Elizabeth Chery unknown) MR#: [id number] (unknown) (no (unknown) (unknown) Penicillins (units (un known) date) Allergy (Unknown, unknown) Verified 08/20/22 14:56) (unknown) (no (unknown) (unknown) Position Sitting (units (unknown) date) unknown) (unknown) (no (unknown) (unknown) Pulse 80 (units (unkno wn) date) unknown) (unknown) (no (unknown) (unknown) Pulse Oximetry (units (unknown) date) (%) 98 unknown) (unknown) (no (unknown) (unknown) Pulse Source (units (u nknown) date) Monitor unknown) (unknown) (no (unknown) (unknown) Reason For Visit (units (unknown) date) unknown) (unknown) (no (unknown) (unknown) Respiration 16 (units (unknown) date) unknown) (unknown) (no (unknown) (unknown) Signed By: (units (unk nown) date) unknown) (unknown) (no (unknown) (unknown) Skin wound from (units (unknown) date) surgical incision unknown) (unknown) (no (unknown) (unknown) Smoking Status: (units (unknown) date) Never smoker unknown) (unknown) (no (unknown) (unknown) Sulfa (units (unkno wn) date) (Sulfonamide unknown) Antibiotics) Allergy (Unknown, Verified 08/20/22 14:56) (unknown) (no (unknown) (unknown) Temp 97.5 F L (units ( unknown) date) unknown) (unknown) (no (unknown) (unknown) Temp Source (units (un known) date) Temporal Artery unknown) Scan (unknown) (no (unknown) (unknown) This note may (units ( unknown) date) have been all or unknown) partially generated using voice recognition (unknown) (no (unknown) (unknown) Tobacco + (units (unkn own) date) Substance Use unknown) (unknown) (no (unknown) (unknown) Tobacco Status (units (unknown) date) unknown) (unknown) (no (unknown) (unknown) Visit Reasons: (units (unknown) date) WWE/PAP/F/U MENTAL unknown) HEALTH (unknown) (no (unknown) (unknown) Vitals (units (unkno wn) date) unknown) (unknown) (no (unknown) (unknown) WWE/PAP and check (units (unknown) date) if anxiety gets unknown) worse with her periods. (unknown) (no (unknown) (unknown) Weight 227 lb (units ( unknown) date) unknown) (unknown) (no (unknown) (unknown) albuterol sulfate (units (unknown) date) 90 mcg/actuation unknown) aerosol inhaler 2 puff inhalation Q4-6H PRN (unknown) (no (unknown) (unknown) alcohol intake: (units (unknown) date) never unknown) (unknown) (no (unknown) (unknown) cholecalciferol (units (unknown) date) (vitamin D3) 25 unknown) mcg (1,000 unit) capsule 25 mcg PO DAILY (unknown) (no (unknown) (unknown) desvenlafaxine (units (unknown) date) succinate 100 mg unknown) tablet,extended release 24 hr (Pristiq) 100 mg (unknown) (no (unknown) (unknown) examination (units (un known) date) without abnormal unknown) findings, Z12.4 - Encounter for screening for (unknown) (no (unknown) (unknown) famotidine 20 mg (units (unknown) date) tablet (Acid unknown) Design Quality Engineer (famotidine)) 20 mg PO DAILY #90 tabs (unknown) (no (unknown) (unknown) fluticasone 250 (units (unknown) date) mcg-salmeterol 50 unknown) mcg/dose blistr powdr for inhalation (Advair (unknown) (no (unknown) (unknown) have occurred. If (units (unknown) date) there are any unknown) questions, please contact the Medical Records (unknown) (no (unknown) (unknown) malignant (units (unkn own) date) neoplasm of cervix unknown) (unknown) (no (unknown) (unknown) may occur. (units (unk nown) date) Occasional unknown) wrong-word or 'sound-alike' substitutions may have (unknown) (no (unknown) (unknown) montelukast 10 mg (units (unknown) date) tablet 10 mg PO unknown) DAILY #90 tabs 05/28/22 [Rx Confirmed (unknown) (no (unknown) (unknown) norethindrone (units ( unknown) date) (contraceptive) unknown) 0.35 mg tablet (Ely) 0.35 mg PO DAILY #84 tabs (unknown) (no (unknown) (unknown) occurred due to (units (unknown) date) the inherent unknown) limitations of voice recognition software. Please (unknown) (no (unknown) (unknown) read the note (units ( unknown) date) carefully and unknown) recognize, using context, where these substitutions (unknown) (no (unknown) (unknown) second hand (units (un known) date) exposure: No unknown) (unknown) (no (unknown) (unknown) shortness of (units (u nknown) date) breath or wheezing unknown) #17 grams 05/01/22 [Rx Confirmed 08/20/22] (unknown) (no (unknown) (unknown) software. (units (unkn own) date) Although every unknown) effort is made to edit content, sign erector errors (unknown) (no (unknown) (unknown) substance use (units ( unknown) date) type: does not use unknown) (unknown) (no (unknown) (unknown) trazodone 50 mg (units (unknown) date) tablet 100 mg PO unknown) BEDTIME PRN sleep #180 tabs 07/02/22 [Rx Result panel 12 (unknown) (no (unknown) (unknown) (no value) (units (unk nown) date) unknown) (unknown) (no (unknown) (unknown) 11/21/20 [History (units (unknown) date) Confirmed unknown) 08/20/22] (unknown) (no (unknown) (unknown) 05/15/21 [Rx (units (u nknown) date) Confirmed unknown) 08/20/22] (unknown) (no (unknown) (unknown) 05/28/22 [Rx (units (u nknown) date) Confirmed unknown) 08/20/22] (unknown) (no (unknown) (unknown) 08/20/22 (units (unkno wn) date) unknown) (unknown) (no (unknown) (unknown) 08/20/22] (units (unkn own) date) unknown) (unknown) (no (unknown) (unknown) 14:57 (units (unkno wn) date) unknown) (unknown) (no (unknown) (unknown) 27-year-old (units (un known) date) female presents to unknown) follow-up on anxiety, depressed mood, insomnia. (unknown) (no (unknown) (unknown) [id number] (units (unkno wn) date) unknown) (unknown) (no (unknown) (unknown) Accompanied by: (units (unknown) date) Self / Same As unknown) Patient (unknown) (no (unknown) (unknown) Age/Sex: 27 / F (units (unknown) date) Date of Service: unknown) (unknown) (no (unknown) (unknown) Allergies (units (unkn own) date) unknown) (unknown) (no (unknown) (unknown) [place], [place] (units ( unknown) date) [id number] unknown) (unknown) (no (unknown) (unknown) Anxiety (units (unkno wn) date) unknown) (unknown) (no (unknown) (unknown) Assessment + Plan (units (unknown) date) unknown) (unknown) (no (unknown) (unknown) Attending Dr: (units ( unknown) date) Gustavo BRICENO unknown) (unknown) (no (unknown) (unknown) BMI 34.4 (units (unkno wn) date) unknown) (unknown) (no (unknown) (unknown) BP 130/70 (units (unkn own) date) unknown) (unknown) (no (unknown) (unknown) Blood Pressure (units (unknown) date) Location Lt unknown) brachial (unknown) (no (unknown) (unknown) Chief Complaint (units (unknown) date) unknown) (unknown) (no (unknown) (unknown) Chief Complaint: (units (unknown) date) Follow-up unknown) anxiety/depression (unknown) (no (unknown) (unknown) Confirmed (units (unkn own) date) 08/20/22] unknown) (unknown) (no (unknown) (unknown) : 1995 (units (unknown) date) Acct:[id number] unknown) (unknown) (no (unknown) (unknown) Date of Last (units (u nknown) date) Menstrual Period: unknown) 07/25/22 (unknown) (no (unknown) (unknown) Depression (units (unk nown) date) unknown) (unknown) (no (unknown) (unknown) Dept at (units (unkno wn) date) . unknown) (unknown) (no (unknown) (unknown) Details: (units (unkno wn) date) unknown) (unknown) (no (unknown) (unknown) Diskus) 1 inh (units ( unknown) date) inhalation BID unknown) #180 ea 05/01/22 [Rx Confirmed 08/20/22] (unknown) (no (unknown) (unknown) Documented By: (units (unknown) date) Gustavo Díaz unknown) 08/20/22 1456 (unknown) (no (unknown) (unknown) Draft (units (unkno wn) date) unknown) (unknown) (no (unknown) (unknown) Family Practice (units (unknown) date) Office Visit unknown) (unknown) (no (unknown) (unknown) [facility] ([facility] ([facility] date[facility] unknown) (unknown) (no (unknown) (unknown) GERD (units (unkno wn) date) (gastroesophageal unknown) reflux disease) (2019) (unknown) (no (unknown) (unknown) HPI (units (unkno wn) date) unknown) (unknown) (no (unknown) (unknown) Health Management (units (unknown) date) reviewed with unknown) patient: Yes (unknown) (no (unknown) (unknown) Health Management (units (unknown) date) unknown) (unknown) (no (unknown) (unknown) Height 172.72 cm (units (unknown) date) unknown) (unknown) (no (unknown) (unknown) Insomnia (units (unkno wn) date) unknown) (unknown) (no (unknown) (unknown) Intake Note: (units (u nknown) date) unknown) (unknown) (no (unknown) (unknown) Intake performed (units (unknown) date) by: Sabrina Carranza unknown) M (unknown) (no (unknown) (unknown) Intake (units (unkno wn) date) unknown) (unknown) (no (unknown) (unknown) Intake- Clincial (units (unknown) date) Staff unknown) (unknown) (no (unknown) (unknown) Irregular (units (unkn own) date) menstrual bleeding unknown) (10/2021) (unknown) (no (unknown) (unknown) Last Menstural (units (unknown) date) Cycle + Details unknown) (unknown) (no (unknown) (unknown) Loc: [facility] (units (unkno wn) date) unknown) (unknown) (no (unknown) (unknown) Medical History (units (unknown) date) (Reviewed 07/02/22 unknown) @ 14:54 by JANAK Melendez) (unknown) (no (unknown) (unknown) Medications (units (un known) date) unknown) (unknown) (no (unknown) (unknown) Moderate (units (unkno wn) date) intermittent unknown) asthma (unknown) (no (unknown) (unknown) Moderate (units (unkno wn) date) persistent asthma unknown) (unknown) (no (unknown) (unknown) No ear pain, (units (u nknown) date) plugged sensation unknown) or other ear symptoms. (unknown) (no (unknown) (unknown) Orders (units (unkno wn) date) unknown) (unknown) (no (unknown) (unknown) Orders: (units (unkno wn) date) unknown) (unknown) (no (unknown) (unknown) Oxygen Delivery (units (unknown) date) Method room air unknown) (unknown) (no (unknown) (unknown) PAP with reflex (units (unknown) date) HPV Today Z00.00 - unknown) Encounter for general adult medical (unknown) (no (unknown) (unknown) PFSH (units (unkno wn) date) unknown) (unknown) (no (unknown) (unknown) PO DAILY #90 tabs (units (unknown) date) 06/18/22 [Rx unknown) Confirmed 08/20/22] (unknown) (no (unknown) (unknown) Parent, patient (units (unknown) date) were present in unknown) their home in [place], [place]. (unknown) (no (unknown) (unknown) Patient also (units (u nknown) date) would like to unknown) discuss her hearing loss. She states that she seems (unknown) (no (unknown) (unknown) Patient consented (units (unknown) date) to receive unknown) services via teleheath. (unknown) (no (unknown) (unknown) Patient: (units (unkno wn) date) Elizabeth Chery unknown) MR#: [id number] (unknown) (no (unknown) (unknown) Penicillins (units (un known) date) Allergy (Unknown, unknown) Verified 08/20/22 14:56) (unknown) (no (unknown) (unknown) Position Sitting (units (unknown) date) unknown) (unknown) (no (unknown) (unknown) Provider was (units (u nknown) date) present in her unknown) office in [place], [place]. (unknown) (no (unknown) (unknown) Pulse 80 (units (unkno wn) date) unknown) (unknown) (no (unknown) (unknown) Pulse Oximetry (units (unknown) date) (%) 98 unknown) (unknown) (no (unknown) (unknown) Pulse Source (units (u nknown) date) Monitor unknown) (unknown) (no (unknown) (unknown) Real-time (units (unkn own) date) synchronous unknown) services were performed using the [employer] platform. (unknown) (no (unknown) (unknown) Reason For Visit (units (unknown) date) unknown) (unknown) (no (unknown) (unknown) Respiration 16 (units (unknown) date) unknown) (unknown) (no (unknown) (unknown) She reports that (units (unknown) date) she is doing quite unknown) well since she switched from gabapentin to (unknown) (no (unknown) (unknown) Signed By: (units (unk nown) date) unknown) (unknown) (no (unknown) (unknown) Skin wound from (units (unknown) date) surgical incision unknown) (unknown) (no (unknown) (unknown) Smoking Status: (units (unknown) date) Never smoker unknown) (unknown) (no (unknown) (unknown) Sulfa (units (unkno wn) date) (Sulfonamide unknown) Antibiotics) Allergy (Unknown, Verified 08/20/22 14:56) (unknown) (no (unknown) (unknown) Temp 97.5 F L (units ( unknown) date) unknown) (unknown) (no (unknown) (unknown) Temp Source (units (un known) date) Temporal Artery unknown) Scan (unknown) (no (unknown) (unknown) This note may (units ( unknown) date) have been all or unknown) partially generated using voice recognition (unknown) (no (unknown) (unknown) Tobacco + (units (unkn own) date) Substance Use unknown) (unknown) (no (unknown) (unknown) Tobacco Status (units (unknown) date) unknown) (unknown) (no (unknown) (unknown) Visit Reasons: (units (unknown) date) WWE/PAP/F/U MENTAL unknown) HEALTH (unknown) (no (unknown) (unknown) Vitals (units (unkno wn) date) unknown) (unknown) (no (unknown) (unknown) WWE/PAP and check (units (unknown) date) if anxiety gets unknown) worse with her periods. (unknown) (no (unknown) (unknown) Weight 102.965 kg (units (unknown) date) unknown) (unknown) (no (unknown) (unknown) albuterol sulfate (units (unknown) date) 90 mcg/actuation unknown) aerosol inhaler 2 puff inhalation Q4-6H PRN (unknown) (no (unknown) (unknown) alcohol intake: (units (unknown) date) never unknown) (unknown) (no (unknown) (unknown) and it has been (units (unknown) date) effective at unknown) lowering her to get to sleep and stay asleep with (unknown) (no (unknown) (unknown) cholecalciferol (units (unknown) date) (vitamin D3) 25 unknown) mcg (1,000 unit) capsule 25 mcg PO DAILY (unknown) (no (unknown) (unknown) controlling her (units (unknown) date) anxiety and unknown) depression symptoms well. No significant side (unknown) (no (unknown) (unknown) desvenlafaxine (units (unknown) date) succinate 100 mg unknown) tablet,extended release 24 hr (Pristiq) 100 mg (unknown) (no (unknown) (unknown) effects. No (units (un known) date) SI/HI. unknown) (unknown) (no (unknown) (unknown) evening after the (units (unknown) date) initial 50 mg was unknown) ineffective for sleep; however the rest of (unknown) (no (unknown) (unknown) examination (units (un known) date) without abnormal unknown) findings, Z12.4 - Encounter for screening for (unknown) (no (unknown) (unknown) famotidine 20 mg (units (unknown) date) tablet (Acid unknown) Design Quality Engineer (famotidine)) 20 mg PO DAILY #90 tabs (unknown) (no (unknown) (unknown) fluticasone 250 (units (unknown) date) mcg-salmeterol 50 unknown) mcg/dose blistr powdr for inhalation (Advair (unknown) (no (unknown) (unknown) have occurred. If (units (unknown) date) there are any unknown) questions, please contact the Medical Records (unknown) (no (unknown) (unknown) has (units (un known) date) noticed this. unknown) Denies any history of loud noise exposure. Not sure (unknown) (no (unknown) (unknown) malignant (units (unkn own) date) neoplasm of cervix unknown) (unknown) (no (unknown) (unknown) may occur. (units (unk nown) date) Occasional unknown) wrong-word or 'sound-alike' substitutions may have (unknown) (no (unknown) (unknown) montelukast 10 mg (units (unknown) date) tablet 10 mg PO unknown) DAILY #90 tabs 05/28/22 [Rx Confirmed (unknown) (no (unknown) (unknown) no significant (units (unknown) date) side effects. Once unknown) she did take an additional 50 mg later in the (unknown) (no (unknown) (unknown) norethindrone (units ( unknown) date) (contraceptive) unknown) 0.35 mg tablet (Ely) 0.35 mg PO DAILY #84 tabs (unknown) (no (unknown) (unknown) occurred due to (units (unknown) date) the inherent unknown) limitations of voice recognition software. Please (unknown) (no (unknown) (unknown) read the note (units ( unknown) date) carefully and unknown) recognize, using context, where these substitutions (unknown) (no (unknown) (unknown) second hand (units (un known) date) exposure: No unknown) (unknown) (no (unknown) (unknown) shortness of (units (u nknown) date) breath or wheezing unknown) #17 grams 05/01/22 [Rx Confirmed 08/20/22] (unknown) (no (unknown) (unknown) software. (units (unkn own) date) Although every unknown) effort is made to edit content, sign erector errors (unknown) (no (unknown) (unknown) substance use (units ( unknown) date) type: does not use unknown) (unknown) (no (unknown) (unknown) the time a 50 mg (units (unknown) date) dose was unknown) effective. Continues to find that Pristiq seems to be (unknown) (no (unknown) (unknown) to have hearing (units (unknown) date) impairment worse unknown) on the left side. She has noticed this and her (unknown) (no (unknown) (unknown) trazodone 50 mg (units (unknown) date) tablet 100 mg PO unknown) BEDTIME PRN sleep #180 tabs 07/02/22 [Rx (unknown) (no (unknown) (unknown) trazodone for (units ( unknown) date) insomnia. States unknown) that she has taken 50 mg at bedtime most nights (unknown) (no (unknown) (unknown) when this problem (units (unknown) date) began but believes unknown) that it has been present for a long time. Result panel 13 (unknown) (no (unknown) (unknown) (no value) (units (unk nown) date) unknown) (unknown) (no (unknown) (unknown) 11/21/20 [History (units (unknown) date) Confirmed unknown) 08/20/22] (unknown) (no (unknown) (unknown) 05/15/21 [Rx (units (u nknown) date) Confirmed unknown) 08/20/22] (unknown) (no (unknown) (unknown) 05/28/22 [Rx (units (u nknown) date) Confirmed unknown) 08/20/22] (unknown) (no (unknown) (unknown) 08/20/22 (units (unkno wn) date) unknown) (unknown) (no (unknown) (unknown) 08/20/22] (units (unkn own) date) unknown) (unknown) (no (unknown) (unknown) 14:57 (units (unkno wn) date) unknown) (unknown) (no (unknown) (unknown) 27-year-old (units (un known) date) female presents to unknown) follow-up on anxiety, depressed mood, insomnia. (unknown) (no (unknown) (unknown) [id number] (units (unkno wn) date) unknown) (unknown) (no (unknown) (unknown) Accompanied by: (units (unknown) date) Self / Same As unknown) Patient (unknown) (no (unknown) (unknown) Age/Sex: 27 / F (units (unknown) date) Date of Service: unknown) (unknown) (no (unknown) (unknown) Allergies (units (unkn own) date) unknown) (unknown) (no (unknown) (unknown) DEDRA Cho (units ( unknown) date) [id number] unknown) (unknown) (no (unknown) (unknown) Anxiety (units (unkno wn) date) unknown) (unknown) (no (unknown) (unknown) Assessment + Plan (units (unknown) date) unknown) (unknown) (no (unknown) (unknown) Attending Dr: (units ( unknown) date) Gustavo BRICENO unknown) (unknown) (no (unknown) (unknown) BMI 34.4 (units (unkno wn) date) unknown) (unknown) (no (unknown) (unknown) BP 130/70 (units (unkn own) date) unknown) (unknown) (no (unknown) (unknown) Blood Pressure (units (unknown) date) Location Lt unknown) brachial (unknown) (no (unknown) (unknown) Chief Complaint (units (unknown) date) unknown) (unknown) (no (unknown) (unknown) Chief Complaint: (units (unknown) date) Well-woman unknown) exam/Pap/Follow-up anxiety/depression (unknown) (no (unknown) (unknown) Confirmed (units (unkn own) date) 08/20/22] unknown) (unknown) (no (unknown) (unknown) : 1995 (units (unknown) date) Acct:[id number] unknown) (unknown) (no (unknown) (unknown) Date of Last (units (u nknown) date) Menstrual Period: unknown) 07/25/22 (unknown) (no (unknown) (unknown) Depression (units (unk nown) date) unknown) (unknown) (no (unknown) (unknown) Dept at (units (unkno wn) date) . unknown) (unknown) (no (unknown) (unknown) Details: (units (unkno wn) date) unknown) (unknown) (no (unknown) (unknown) Diskus) 1 inh (units ( unknown) date) inhalation BID unknown) #180 ea 05/01/22 [Rx Confirmed 08/20/22] (unknown) (no (unknown) (unknown) Documented By: (units (unknown) date) Gustavo Díaz unknown) 08/20/22 1456 (unknown) (no (unknown) (unknown) Draft (units (unkno wn) date) unknown) (unknown) (no (unknown) (unknown) Family Practice (units (unknown) date) Office Visit unknown) (unknown) (no (unknown) (unknown) [facility] (units ([facility] date[facility] unknown) (unknown) (no (unknown) (unknown) GERD (units (unkno wn) date) (gastroesophageal unknown) reflux disease) (2019) (unknown) (no (unknown) (unknown) HPI (units (unkno wn) date) unknown) (unknown) (no (unknown) (unknown) Health Management (units (unknown) date) reviewed with unknown) patient: Yes (unknown) (no (unknown) (unknown) Health Management (units (unknown) date) unknown) (unknown) (no (unknown) (unknown) Height 172.72 cm (units (unknown) date) unknown) (unknown) (no (unknown) (unknown) Insomnia (units (unkno wn) date) unknown) (unknown) (no (unknown) (unknown) Intake Note: (units (u nknown) date) unknown) (unknown) (no (unknown) (unknown) Intake performed (units (unknown) date) by: Sabrina Carranza unknown) M (unknown) (no (unknown) (unknown) Intake (units (unkno wn) date) unknown) (unknown) (no (unknown) (unknown) Intake- Clincial (units (unknown) date) Staff unknown) (unknown) (no (unknown) (unknown) Irregular (units (unkn own) date) menstrual bleeding unknown) (10/2021) (unknown) (no (unknown) (unknown) Last Menstural (units (unknown) date) Cycle + Details unknown) (unknown) (no (unknown) (unknown) Loc: [facility] (units (unkno wn) date) unknown) (unknown) (no (unknown) (unknown) Medical History (units (unknown) date) (Reviewed 07/02/22 unknown) @ 14:54 by JANAK Melendez) (unknown) (no (unknown) (unknown) Medications (units (un known) date) unknown) (unknown) (no (unknown) (unknown) Moderate (units (unkno wn) date) intermittent unknown) asthma (unknown) (no (unknown) (unknown) Moderate (units (unkno wn) date) persistent asthma unknown) (unknown) (no (unknown) (unknown) No ear pain, (units (u nknown) date) plugged sensation unknown) or other ear symptoms. (unknown) (no (unknown) (unknown) Orders (units (unkno wn) date) unknown) (unknown) (no (unknown) (unknown) Orders: (units (unkno wn) date) unknown) (unknown) (no (unknown) (unknown) Oxygen Delivery (units (unknown) date) Method room air unknown) (unknown) (no (unknown) (unknown) PAP with reflex (units (unknown) date) HPV 08/20/22 unknown) Z00.00 - Encounter for general adult medical (unknown) (no (unknown) (unknown) PFSH (units (unkno wn) date) unknown) (unknown) (no (unknown) (unknown) PO DAILY #90 tabs (units (unknown) date) 06/18/22 [Rx unknown) Confirmed 08/20/22] (unknown) (no (unknown) (unknown) Parent, patient (units (unknown) date) were present in unknown) their home in [place], [place]. (unknown) (no (unknown) (unknown) Patient also (units (u nknown) date) would like to unknown) discuss her hearing loss. She states that she seems (unknown) (no (unknown) (unknown) Patient consented (units (unknown) date) to receive unknown) services via teleheath. (unknown) (no (unknown) (unknown) Patient: (units (unkno wn) date) Elizabeth Chery unknown) MR#: [id number] (unknown) (no (unknown) (unknown) Penicillins (units (un known) date) Allergy (Unknown, unknown) Verified 08/20/22 14:56) (unknown) (no (unknown) (unknown) Position Sitting (units (unknown) date) unknown) (unknown) (no (unknown) (unknown) Provider was (units (u nknown) date) present in her unknown) office in [place], [place]. (unknown) (no (unknown) (unknown) Pulse 80 (units (unkno wn) date) unknown) (unknown) (no (unknown) (unknown) Pulse Oximetry (units (unknown) date) (%) 98 unknown) (unknown) (no (unknown) (unknown) Pulse Source (units (u nknown) date) Monitor unknown) (unknown) (no (unknown) (unknown) Real-time (units (unkn own) date) synchronous unknown) services were performed using the [employer] platform. (unknown) (no (unknown) (unknown) Reason For Visit (units (unknown) date) unknown) (unknown) (no (unknown) (unknown) Respiration 16 (units (unknown) date) unknown) (unknown) (no (unknown) (unknown) She reports that (units (unknown) date) she is doing quite unknown) well since she switched from gabapentin to (unknown) (no (unknown) (unknown) Signed By: (units (unk nown) date) unknown) (unknown) (no (unknown) (unknown) Skin wound from (units (unknown) date) surgical incision unknown) (unknown) (no (unknown) (unknown) Smoking Status: (units (unknown) date) Never smoker unknown) (unknown) (no (unknown) (unknown) Sulfa (units (unkno wn) date) (Sulfonamide unknown) Antibiotics) Allergy (Unknown, Verified 08/20/22 14:56) (unknown) (no (unknown) (unknown) Temp 97.5 F L (units ( unknown) date) unknown) (unknown) (no (unknown) (unknown) Temp Source (units (un known) date) Temporal Artery unknown) Scan (unknown) (no (unknown) (unknown) This note may (units ( unknown) date) have been all or unknown) partially generated using voice recognition (unknown) (no (unknown) (unknown) Tobacco + (units (unkn own) date) Substance Use unknown) (unknown) (no (unknown) (unknown) Tobacco Status (units (unknown) date) unknown) (unknown) (no (unknown) (unknown) Visit Reasons: (units (unknown) date) WWE/PAP/F/U MENTAL unknown) HEALTH (unknown) (no (unknown) (unknown) Vitals (units (unkno wn) date) unknown) (unknown) (no (unknown) (unknown) WWE/PAP and check (units (unknown) date) if anxiety gets unknown) worse with her periods. (unknown) (no (unknown) (unknown) Weight 102.965 kg (units (unknown) date) unknown) (unknown) (no (unknown) (unknown) albuterol sulfate (units (unknown) date) 90 mcg/actuation unknown) aerosol inhaler 2 puff inhalation Q4-6H PRN (unknown) (no (unknown) (unknown) alcohol intake: (units (unknown) date) never unknown) (unknown) (no (unknown) (unknown) and it has been (units (unknown) date) effective at unknown) lowering her to get to sleep and stay asleep with (unknown) (no (unknown) (unknown) cholecalciferol (units (unknown) date) (vitamin D3) 25 unknown) mcg (1,000 unit) capsule 25 mcg PO DAILY (unknown) (no (unknown) (unknown) controlling her (units (unknown) date) anxiety and unknown) depression symptoms well. No significant side (unknown) (no (unknown) (unknown) desvenlafaxine (units (unknown) date) succinate 100 mg unknown) tablet,extended release 24 hr (Pristiq) 100 mg (unknown) (no (unknown) (unknown) effects. No (units (un known) date) SI/HI. unknown) (unknown) (no (unknown) (unknown) evening after the (units (unknown) date) initial 50 mg was unknown) ineffective for sleep; however the rest of (unknown) (no (unknown) (unknown) examination (units (un known) date) without abnormal unknown) findings, Z12.4 - Encounter for screening for (unknown) (no (unknown) (unknown) famotidine 20 mg (units (unknown) date) tablet (Acid unknown) Design Quality Engineer (famotidine)) 20 mg PO DAILY #90 tabs (unknown) (no (unknown) (unknown) fluticasone 250 (units (unknown) date) mcg-salmeterol 50 unknown) mcg/dose blistr powdr for inhalation (Advair (unknown) (no (unknown) (unknown) have occurred. If (units (unknown) date) there are any unknown) questions, please contact the Medical Records (unknown) (no (unknown) (unknown) has (units (un known) date) noticed this. unknown) Denies any history of loud noise exposure. Not sure (unknown) (no (unknown) (unknown) malignant (units (unkn own) date) neoplasm of cervix unknown) (unknown) (no (unknown) (unknown) may occur. (units (unk nown) date) Occasional unknown) wrong-word or 'sound-alike' substitutions may have (unknown) (no (unknown) (unknown) montelukast 10 mg (units (unknown) date) tablet 10 mg PO unknown) DAILY #90 tabs 05/28/22 [Rx Confirmed (unknown) (no (unknown) (unknown) no significant (units (unknown) date) side effects. Once unknown) she did take an additional 50 mg later in the (unknown) (no (unknown) (unknown) norethindrone (units ( unknown) date) (contraceptive) unknown) 0.35 mg tablet (Ely) 0.35 mg PO DAILY #84 tabs (unknown) (no (unknown) (unknown) occurred due to (units (unknown) date) the inherent unknown) limitations of voice recognition software. Please (unknown) (no (unknown) (unknown) read the note (units ( unknown) date) carefully and unknown) recognize, using context, where these substitutions (unknown) (no (unknown) (unknown) second hand (units (un known) date) exposure: No unknown) (unknown) (no (unknown) (unknown) shortness of (units (u nknown) date) breath or wheezing unknown) #17 grams 05/01/22 [Rx Confirmed 08/20/22] (unknown) (no (unknown) (unknown) software. (units (unkn own) date) Although every unknown) effort is made to edit content, sign erector errors (unknown) (no (unknown) (unknown) substance use (units ( unknown) date) type: does not use unknown) (unknown) (no (unknown) (unknown) the time a 50 mg (units (unknown) date) dose was unknown) effective. Continues to find that Pristiq seems to be (unknown) (no (unknown) (unknown) to have hearing (units (unknown) date) impairment worse unknown) on the left side. She has noticed this and her (unknown) (no (unknown) (unknown) trazodone 50 mg (units (unknown) date) tablet 100 mg PO unknown) BEDTIME PRN sleep #180 tabs 07/02/22 [Rx (unknown) (no (unknown) (unknown) trazodone for (units ( unknown) date) insomnia. States unknown) that she has taken 50 mg at bedtime most nights (unknown) (no (unknown) (unknown) when this problem (units (unknown) date) began but believes unknown) that it has been present for a long time. Result panel 14 (unknown) (no (unknown) (unknown) (no value) (units (unk nown) date) unknown) (unknown) (no (unknown) (unknown) (1) Well woman (units (unknown) date) exam with routine unknown) gynecological exam: (unknown) (no (unknown) (unknown) (2) Anxiety: (units (u nknown) date) unknown) (unknown) (no (unknown) (unknown) (3) Depression: (units (unknown) date) unknown) (unknown) (no (unknown) (unknown) (4) Insomnia: (units ( unknown) date) unknown) (unknown) (no (unknown) (unknown) (5) Loud snoring: (units (unknown) date) unknown) (unknown) (no (unknown) (unknown) 11/21/20 [History (units (unknown) date) Confirmed unknown) 08/20/22] (unknown) (no (unknown) (unknown) 05/15/21 [Rx (units (u nknown) date) Confirmed unknown) 08/20/22] (unknown) (no (unknown) (unknown) 05/28/22 [Rx (units (u nknown) date) Confirmed unknown) 08/20/22] (unknown) (no (unknown) (unknown) 08/20/22 (units (unkno wn) date) unknown) (unknown) (no (unknown) (unknown) 08/20/22] (units (unkn own) date) unknown) (unknown) (no (unknown) (unknown) 14:57 (units (unkno wn) date) unknown) (unknown) (no (unknown) (unknown) 27-year-old (units (un known) date) female presents unknown) for well-woman exam/Pap as well as to follow-up on (unknown) (no (unknown) (unknown) [id number] (units (unkno wn) date) unknown) (unknown) (no (unknown) (unknown) Accompanied by: (units (unknown) date) Self / Same As unknown) Patient (unknown) (no (unknown) (unknown) Affect: normal (units (unknown) date) affect unknown) (unknown) (no (unknown) (unknown) Age/Sex: 27 / F (units (unknown) date) Date of Service: unknown) (unknown) (no (unknown) (unknown) All systems (units (un known) date) reviewed + are unknown) unremarkable except as noted in HPI and below (unknown) (no (unknown) (unknown) Allergies (units (unkn own) date) unknown) (unknown) (no (unknown) (unknown) [place], [place] (units ( unknown) date) [id number] unknown) (unknown) (no (unknown) (unknown) Anxiety (units (unkno wn) date) unknown) (unknown) (no (unknown) (unknown) Anxiety/depressio (units (unknown) date) n/insomnia: unknown) Currently doing well on regimen, continue same. (unknown) (no (unknown) (unknown) Appearance: (units (un known) date) grossly normal unknown) (unknown) (no (unknown) (unknown) Assessment + Plan (units (unknown) date) unknown) (unknown) (no (unknown) (unknown) Attending Dr: (units ( unknown) date) Gustavo BRICENO unknown) (unknown) (no (unknown) (unknown) Attitude: (units (unkn own) date) cooperative unknown) (unknown) (no (unknown) (unknown) Auscultation: (units ( unknown) date) clear to unknown) auscultation bilaterally (unknown) (no (unknown) (unknown) Auscultation: (units ( unknown) date) normal bowel unknown) sounds (unknown) (no (unknown) (unknown) BMI 34.4 (units (unkno wn) date) unknown) (unknown) (no (unknown) (unknown) BP 130/70 (units (unkn own) date) unknown) (unknown) (no (unknown) (unknown) Bimanual Exam- (units (unknown) date) Adnexa, other: unknown) normal adnexae, normal and non-tender (unknown) (no (unknown) (unknown) Bimanual Exam- (units (unknown) date) Vagina + Uterus: unknown) normal bimanual exam, normal palpation, uterine (unknown) (no (unknown) (unknown) Blood Pressure (units (unknown) date) Location Lt unknown) brachial (unknown) (no (unknown) (unknown) Breast inspection: (units (unknown) date) normal inspection unknown) of the breasts and normal inspection of the (unknown) (no (unknown) (unknown) Breast palpation: (units (unknown) date) normal palpation unknown) of the breasts, normal palpation of the (unknown) (no (unknown) (unknown) Cardio (units (unkno wn) date) unknown) (unknown) (no (unknown) (unknown) Chest (units (unkno wn) date) unknown) (unknown) (no (unknown) (unknown) Chief Complaint (units (unknown) date) unknown) (unknown) (no (unknown) (unknown) Chief Complaint: (units (unknown) date) Well-woman unknown) exam/Pap/Follow-up anxiety/depression (unknown) (no (unknown) (unknown) Clinical breast (units (unknown) date) exam, general unknown) physical exam, pelvic exam unremarkable. Pap (unknown) (no (unknown) (unknown) Cognition: normal (units (unknown) date) cognition unknown) (unknown) (no (unknown) (unknown) Confirmed (units (unkn own) date) 08/20/22] unknown) (unknown) (no (unknown) (unknown) Const (units (unkno wn) date) unknown) (unknown) (no (unknown) (unknown) : 1995 (units (unknown) date) Acct:[id number] unknown) (unknown) (no (unknown) (unknown) Date of Last (units (u nknown) date) Menstrual Period: unknown) 07/25/22 (unknown) (no (unknown) (unknown) Denies breast (units ( unknown) date) skin changes, unknown) Denies breast pain, Denies breast mass and Denies (unknown) (no (unknown) (unknown) Denies history of (units (unknown) date) abnormal Paps. unknown) , . Patient currently uses oral (unknown) (no (unknown) (unknown) Denies vaginal (units (unknown) date) odor unknown) (unknown) (no (unknown) (unknown) Depression Type: (units (unknown) date) major depressive unknown) disorder Major depression recurrence: (unknown) (no (unknown) (unknown) Depression (units (unk nown) date) unknown) (unknown) (no (unknown) (unknown) Dept at (units (unkno wn) date) . unknown) (unknown) (no (unknown) (unknown) Details: (units (unkno wn) date) unknown) (unknown) (no (unknown) (unknown) Diskus) 1 inh (units ( unknown) date) inhalation BID unknown) #180 ea 05/01/22 [Rx Confirmed 08/20/22] (unknown) (no (unknown) (unknown) Documented By: (units (unknown) date) Gustavo Díaz JANAK unknown) 08/20/22 1456 (unknown) (no (unknown) (unknown) Draft (units (unkno wn) date) unknown) (unknown) (no (unknown) (unknown) Ears: hearing (units ( unknown) date) grossly normal unknown) bilaterally, TM's normal bilaterally and EAC's (unknown) (no (unknown) (unknown) Effort + (units (unkno wn) date) Inspection: normal unknown) respiratory effort (unknown) (no (unknown) (unknown) Exam (units (unkno wn) date) unknown) (unknown) (no (unknown) (unknown) External Female (units (unknown) date) Exam: normal unknown) external appearance (unknown) (no (unknown) (unknown) Extrem (units (unkno wn) date) unknown) (unknown) (no (unknown) (unknown) Eyes (units (unkno wn) date) unknown) (unknown) (no (unknown) (unknown) Family Practice (units (unknown) date) Office Visit unknown) (unknown) (no (unknown) (unknown) [facility] (units ([facility] date[facility] unknown) (unknown) (no (unknown) (unknown) GERD (units (unkno wn) date) (gastroesophageal unknown) reflux disease) (2020) (unknown) (no (unknown) (unknown) GI (units (unkno wn) date) unknown) (unknown) (no (unknown) (unknown) (units (unkno wn) date) unknown) (unknown) (no (unknown) (unknown) Gait: normal gait (units (unknown) date) unknown) (unknown) (no (unknown) (unknown) General: (units (unkno wn) date) appearance normal, unknown) both eyes and all related structures (unknown) (no (unknown) (unknown) General: (units (unkno wn) date) cooperative, unknown) healthy appearing and no acute distress (unknown) (no (unknown) (unknown) General: no (units (un known) date) rashes or lesions unknown) noted (unknown) (no (unknown) (unknown) General: normal (units (unknown) date) to inspection, unknown) full ROM and no edema (unknown) (no (unknown) (unknown) General: patient (units (unknown) date) alert, patient unknown) awake and patient oriented x3 (unknown) (no (unknown) (unknown) HENMT (units (unkno wn) date) unknown) (unknown) (no (unknown) (unknown) HPI (units (unkno wn) date) unknown) (unknown) (no (unknown) (unknown) Head: normal to (units (unknown) date) inspection unknown) (unknown) (no (unknown) (unknown) Health Management (units (unknown) date) reviewed with unknown) patient: Yes (unknown) (no (unknown) (unknown) Health Management (units (unknown) date) unknown) (unknown) (no (unknown) (unknown) Heart Sounds: S1 (units (unknown) date) normal, S2 normal, unknown) normal S1 and S2 and no murmurs (unknown) (no (unknown) (unknown) Height 172.72 cm (units (unknown) date) unknown) (unknown) (no (unknown) (unknown) Insomnia type: (units (unknown) date) unspecified unknown) Qualified Code(s): G47.00 - Insomnia, (unknown) (no (unknown) (unknown) Insomnia (units (unkno wn) date) unknown) (unknown) (no (unknown) (unknown) Inspection: (units (un known) date) normal to unknown) inspection (unknown) (no (unknown) (unknown) Intake Note: (units (u nknown) date) unknown) (unknown) (no (unknown) (unknown) Intake performed (units (unknown) date) by: Sabrina Carranza unknown) M (unknown) (no (unknown) (unknown) Intake (units (unkno wn) date) unknown) (unknown) (no (unknown) (unknown) Intake- Clincial (units (unknown) date) Staff unknown) (unknown) (no (unknown) (unknown) Irregular (units (unkn own) date) menstrual bleeding unknown) (10/2021) (unknown) (no (unknown) (unknown) Judgment: (units (unkn own) date) judgment good unknown) (unknown) (no (unknown) (unknown) Last Menstural (units (unknown) date) Cycle + Details unknown) (unknown) (no (unknown) (unknown) Loc: [facility] (units (unkno wn) date) unknown) (unknown) (no (unknown) (unknown) Loud snoring: (units ( unknown) date) Will refer to unknown) Sleep Medicine for consideration of sleep study. (unknown) (no (unknown) (unknown) Medical History (units (unknown) date) (Reviewed 08/24/22 unknown) @ 13:00 by JANAK Melendez) (unknown) (no (unknown) (unknown) Medications (units (un known) date) unknown) (unknown) (no (unknown) (unknown) Mental Status: (units (unknown) date) mental status unknown) grossly normal (unknown) (no (unknown) (unknown) Moderate (units (unkno wn) date) intermittent unknown) asthma (unknown) (no (unknown) (unknown) Moderate (units (unkno wn) date) persistent asthma unknown) (unknown) (no (unknown) (unknown) Mood: congruent (units (unknown) date) mood unknown) (unknown) (no (unknown) (unknown) Motor: muscle (units ( unknown) date) tone normal unknown) throughout (unknown) (no (unknown) (unknown) Mouth: oral (units (un known) date) mucosae normal and unknown) oropharynx normal (unknown) (no (unknown) (unknown) Neck mass: No (units ( unknown) date) unknown) (unknown) (no (unknown) (unknown) Neck (units (unkno wn) date) unknown) (unknown) (no (unknown) (unknown) Neck: normal (units (u nknown) date) visual inspection unknown) and no lymphadenopathy (unknown) (no (unknown) (unknown) Neuro (units (unkno wn) date) unknown) (unknown) (no (unknown) (unknown) No (units (unkno wn) date) supraclavicular or unknown) infraclavicular lymphadenopathy. (unknown) (no (unknown) (unknown) Nose: external (units (unknown) date) nose normal and unknown) nasal mucous membranes and turbinates normal (unknown) (no (unknown) (unknown) Nutritional (units (un known) date) Appearance: unknown) average body habitus (unknown) (no (unknown) (unknown) Orders (units (unkno wn) date) unknown) (unknown) (no (unknown) (unknown) Orders: (units (unkno wn) date) unknown) (unknown) (no (unknown) (unknown) Other: (units (unkno wn) date) unknown) (unknown) (no (unknown) (unknown) Oxygen Delivery (units (unknown) date) Method room air unknown) (unknown) (no (unknown) (unknown) PAP with reflex (units (unknown) date) HPV 08/20/22 unknown) Z00.00 - Encounter for general adult medical (unknown) (no (unknown) (unknown) PFSH (units (unkno wn) date) unknown) (unknown) (no (unknown) (unknown) PO DAILY #90 tabs (units (unknown) date) 06/18/22 [Rx unknown) Confirmed 08/20/22] (unknown) (no (unknown) (unknown) Palpation: soft, (units (unknown) date) no unknown) hepatosplenomegaly , no guarding, no hernias, no masses and (unknown) (no (unknown) (unknown) Patient endorses (units (unknown) date) loud snoring. She unknown) is not really sure about daytime fatigue, as (unknown) (no (unknown) (unknown) Patient reports (units (unknown) date) that she continues unknown) to do well on current Pristiq regimen as well (unknown) (no (unknown) (unknown) Patient would (units ( unknown) date) like to follow-up unknown) in the next 1-2 months to ensure stable on (unknown) (no (unknown) (unknown) Patient: (units (unkno wn) date) Elizabeth Chery unknown) MR#: [id number] (unknown) (no (unknown) (unknown) Pelvic Support: (units (unknown) date) normal unknown) (unknown) (no (unknown) (unknown) Penicillins (units (un known) date) Allergy (Unknown, unknown) Verified 08/20/22 14:56) (unknown) (no (unknown) (unknown) Percussion: (units (un known) date) normal to unknown) percussion (unknown) (no (unknown) (unknown) Plan (units (unkno wn) date) unknown) (unknown) (no (unknown) (unknown) Position Sitting (units (unknown) date) unknown) (unknown) (no (unknown) (unknown) Psych (units (unkno wn) date) unknown) (unknown) (no (unknown) (unknown) Pulse 80 (units (unkno wn) date) unknown) (unknown) (no (unknown) (unknown) Pulse Oximetry (units (unknown) date) (%) 98 unknown) (unknown) (no (unknown) (unknown) Pulse Source (units (u nknown) date) Monitor unknown) (unknown) (no (unknown) (unknown) Qualifiers: (units (un known) date) unknown) (unknown) (no (unknown) (unknown) ROS (units (unkno wn) date) unknown) (unknown) (no (unknown) (unknown) Rate: regular (units ( unknown) date) rate unknown) (unknown) (no (unknown) (unknown) Reason For Visit (units (unknown) date) unknown) (unknown) (no (unknown) (unknown) Reports as per (units (unknown) date) HPI, Denies unknown) genital lesions, Denies nipple discharge, Denies (unknown) (no (unknown) (unknown) Resp (units (unkno wn) date) unknown) (unknown) (no (unknown) (unknown) Respiration 16 (units (unknown) date) unknown) (unknown) (no (unknown) (unknown) Rhythm: regular (units (unknown) date) rhythm unknown) (unknown) (no (unknown) (unknown) Sensory Exam: no (units (unknown) date) sensory deficits unknown) noted (unknown) (no (unknown) (unknown) Signed By: (units (unk nown) date) unknown) (unknown) (no (unknown) (unknown) Skin wound from (units (unknown) date) surgical incision unknown) (unknown) (no (unknown) (unknown) Skin (units (unkno wn) date) unknown) (unknown) (no (unknown) (unknown) Skin/Breast (units (un known) date) unknown) (unknown) (no (unknown) (unknown) Smoking Status: (units (unknown) date) Never smoker unknown) (unknown) (no (unknown) (unknown) Speculum Exam - (units (unknown) date) Cervix: normal unknown) appearance of the cervix (unknown) (no (unknown) (unknown) Speculum Exam - (units (unknown) date) Vagina: normal unknown) appearance of the vagina and normal vaginal (unknown) (no (unknown) (unknown) Speech: speech (units (unknown) date) normal unknown) (unknown) (no (unknown) (unknown) Status: Acute (units ( unknown) date) unknown) (unknown) (no (unknown) (unknown) Sulfa (units (unkno wn) date) (Sulfonamide unknown) Antibiotics) Allergy (Unknown, Verified 08/20/22 14:56) (unknown) (no (unknown) (unknown) Temp 97.5 F L (units ( unknown) date) unknown) (unknown) (no (unknown) (unknown) Temp Source (units (un known) date) Temporal Artery unknown) Scan (unknown) (no (unknown) (unknown) This note may (units ( unknown) date) have been all or unknown) partially generated using voice recognition (unknown) (no (unknown) (unknown) Thought Content: (units (unknown) date) normal unknown) (unknown) (no (unknown) (unknown) Thought Process: (units (unknown) date) normal unknown) (unknown) (no (unknown) (unknown) Throat: posterior (units (unknown) date) oropharynx normal unknown) (unknown) (no (unknown) (unknown) Thyroid: thyroid (units (unknown) date) normal unknown) (unknown) (no (unknown) (unknown) Tobacco + (units (unkn own) date) Substance Use unknown) (unknown) (no (unknown) (unknown) Tobacco Status (units (unknown) date) unknown) (unknown) (no (unknown) (unknown) Visit Reasons: (units (unknown) date) [employer]/PAP/F/U MENTAL unknown) HEALTH (unknown) (no (unknown) (unknown) Vitals (units (unkno wn) date) unknown) (unknown) (no (unknown) (unknown) [employer]/PAP and check (units (unknown) date) if anxiety gets unknown) worse with her periods. (unknown) (no (unknown) (unknown) Weight 102.965 kg (units (unknown) date) unknown) (unknown) (no (unknown) (unknown) albuterol sulfate (units (unknown) date) 90 mcg/actuation unknown) aerosol inhaler 2 puff inhalation Q4-6H PRN (unknown) (no (unknown) (unknown) alcohol intake: (units (unknown) date) never unknown) (unknown) (no (unknown) (unknown) as trazodone for (units (unknown) date) insomnia. No unknown) SI/HI. (unknown) (no (unknown) (unknown) axillae and no (units (unknown) date) axillary unknown) lymphadenopathy (unknown) (no (unknown) (unknown) axillae (units (unkno wn) date) unknown) (unknown) (no (unknown) (unknown) cholecalciferol (units (unknown) date) (vitamin D3) 25 unknown) mcg (1,000 unit) capsule 25 mcg PO DAILY (unknown) (no (unknown) (unknown) desvenlafaxine (units (unknown) date) succinate 100 mg unknown) tablet,extended release 24 hr (Pristiq) 100 mg (unknown) (no (unknown) (unknown) discharge (units (unkn own) date) unknown) (unknown) (no (unknown) (unknown) disorder, single (units (unknown) date) episode, moderate unknown) (unknown) (no (unknown) (unknown) episode severity: (units (unknown) date) moderate Qualified unknown) Code(s): F32.1 - Major depressive (unknown) (no (unknown) (unknown) examination (units (un known) date) without abnormal unknown) findings, Z12.4 - Encounter for screening for (unknown) (no (unknown) (unknown) famotidine 20 mg (units (unknown) date) tablet (Acid unknown) Design Quality Engineer (famotidine)) 20 mg PO DAILY #90 tabs (unknown) (no (unknown) (unknown) fluticasone 250 (units (unknown) date) mcg-salmeterol 50 unknown) mcg/dose blistr powdr for inhalation (Advair (unknown) (no (unknown) (unknown) gynecological (units ( unknown) date) symptoms unknown) otherwise. (unknown) (no (unknown) (unknown) have occurred. If (units (unknown) date) there are any unknown) questions, please contact the Medical Records (unknown) (no (unknown) (unknown) malignant (units (unkn own) date) neoplasm of cervix unknown) (unknown) (no (unknown) (unknown) may occur. (units (unk nown) date) Occasional unknown) wrong-word or 'sound-alike' substitutions may have (unknown) (no (unknown) (unknown) mental health. (units (unknown) date) unknown) (unknown) (no (unknown) (unknown) montelukast 10 mg (units (unknown) date) tablet 10 mg PO unknown) DAILY #90 tabs 05/28/22 [Rx Confirmed (unknown) (no (unknown) (unknown) nipple discharge (units (unknown) date) unknown) (unknown) (no (unknown) (unknown) nontender (units (unkn own) date) unknown) (unknown) (no (unknown) (unknown) norethindrone (units ( unknown) date) (contraceptive) unknown) 0.35 mg tablet ([place]) 0.35 mg PO DAILY #84 tabs (unknown) (no (unknown) (unknown) norethindrone (units ( unknown) date) pill for unknown) contraception and is happy with this method. Menses is (unknown) (no (unknown) (unknown) normal (units (unkno wn) date) unknown) (unknown) (no (unknown) (unknown) occurred due to (units (unknown) date) the inherent unknown) limitations of voice recognition software. Please (unknown) (no (unknown) (unknown) performed; will (units (unknown) date) contact patient unknown) with results and recommendations. (unknown) (no (unknown) (unknown) prolapse (units (unkno wn) date) symptoms, Denies unknown) sexual dysfunction, Denies vaginal discharge and (unknown) (no (unknown) (unknown) read the note (units ( unknown) date) carefully and unknown) recognize, using context, where these substitutions (unknown) (no (unknown) (unknown) regimen. (units (unkno wn) date) unknown) (unknown) (no (unknown) (unknown) second hand (units (un known) date) exposure: No unknown) (unknown) (no (unknown) (unknown) shortness of (units (u nknown) date) breath or wheezing unknown) #17 grams 05/01/22 [Rx Confirmed 08/20/22] (unknown) (no (unknown) (unknown) single episode (units (unknown) date) Active/Remission unknown) status: currently active Major depression (unknown) (no (unknown) (unknown) size normal, (units (u nknown) date) consistency unknown) normal, normal palpation, uterine mobility normal, (unknown) (no (unknown) (unknown) software. (units (unkn own) date) Although every unknown) effort is made to edit content, sign erector errors (unknown) (no (unknown) (unknown) somewhat (units (unkno wn) date) irregular. unknown) Occasionally experiences bleeding between menses. Denies (unknown) (no (unknown) (unknown) substance use (units ( unknown) date) type: does not use unknown) (unknown) (no (unknown) (unknown) there a lot of (units (unknown) date) factors impacting unknown) energy level. (unknown) (no (unknown) (unknown) trazodone 50 mg (units (unknown) date) tablet 100 mg PO unknown) BEDTIME PRN sleep #180 tabs 07/02/22 [Rx (unknown) (no (unknown) (unknown) unspecified (units (un known) date) unknown) (unknown) (no (unknown) (unknown) uterine shape (units ( unknown) date) normal and unknown) non-tender Result panel 15 (unknown) (no (unknown) (unknown) (no value) (units (unk nown) date) unknown) (unknown) (no (unknown) (unknown) (1) Well woman (units (unknown) date) exam with routine unknown) gynecological exam: (unknown) (no (unknown) (unknown) (2) Anxiety: (units (u nknown) date) unknown) (unknown) (no (unknown) (unknown) (3) Depression: (units (unknown) date) unknown) (unknown) (no (unknown) (unknown) (4) Insomnia: (units ( unknown) date) unknown) (unknown) (no (unknown) (unknown) (5) Loud snoring: (units (unknown) date) unknown) (unknown) (no (unknown) (unknown) 11/21/20 [History (units (unknown) date) Confirmed unknown) 08/20/22] (unknown) (no (unknown) (unknown) 05/15/21 [Rx (units (u nknown) date) Confirmed unknown) 08/20/22] (unknown) (no (unknown) (unknown) 05/28/22 [Rx (units (u nknown) date) Confirmed unknown) 08/20/22] (unknown) (no (unknown) (unknown) 08/20/22 (units (unkno wn) date) unknown) (unknown) (no (unknown) (unknown) 08/20/22] (units (unkn own) date) unknown) (unknown) (no (unknown) (unknown) 08/24/22 1311 (units ( unknown) date) unknown) (unknown) (no (unknown) (unknown) 14:57 (units (unkno wn) date) unknown) (unknown) (no (unknown) (unknown) 27-year-old (units (un known) date) female presents unknown) for well-woman exam/Pap as well as to follow-up on (unknown) (no (unknown) (unknown) [id number] (units (unkno wn) date) unknown) (unknown) (no (unknown) (unknown) Accompanied by: (units (unknown) date) Self / Same As unknown) Patient (unknown) (no (unknown) (unknown) Affect: normal (units (unknown) date) affect unknown) (unknown) (no (unknown) (unknown) Age/Sex: 27 / F (units (unknown) date) Date of Service: unknown) (unknown) (no (unknown) (unknown) All systems (units (un known) date) reviewed + are unknown) unremarkable except as noted in HPI and below (unknown) (no (unknown) (unknown) Allergies (units (unkn own) date) unknown) (unknown) (no (unknown) (unknown) [place], [place] (units ( unknown) date) [id number] unknown) (unknown) (no (unknown) (unknown) Anxiety (units (unkno wn) date) unknown) (unknown) (no (unknown) (unknown) Anxiety/depressio (units (unknown) date) n/insomnia: unknown) Currently doing well on regimen, continue same. (unknown) (no (unknown) (unknown) Appearance: (units (un known) date) grossly normal unknown) (unknown) (no (unknown) (unknown) Assessment + Plan (units (unknown) date) unknown) (unknown) (no (unknown) (unknown) Attending Dr: (units ( unknown) date) Gustavo BRICENO unknown) (unknown) (no (unknown) (unknown) Attitude: (units (unkn own) date) cooperative unknown) (unknown) (no (unknown) (unknown) Auscultation: (units ( unknown) date) clear to unknown) auscultation bilaterally (unknown) (no (unknown) (unknown) Auscultation: (units ( unknown) date) normal bowel unknown) sounds (unknown) (no (unknown) (unknown) BMI 34.4 (units (unkno wn) date) unknown) (unknown) (no (unknown) (unknown) BP 130/70 (units (unkn own) date) unknown) (unknown) (no (unknown) (unknown) Bimanual Exam- (units (unknown) date) Adnexa, other: unknown) normal adnexae, normal and non-tender (unknown) (no (unknown) (unknown) Bimanual Exam- (units (unknown) date) Vagina + Uterus: unknown) normal bimanual exam, normal palpation, uterine (unknown) (no (unknown) (unknown) Blood Pressure (units (unknown) date) Location Lt unknown) brachial (unknown) (no (unknown) (unknown) Breast inspection: (units (unknown) date) normal inspection unknown) of the breasts and normal inspection of the (unknown) (no (unknown) (unknown) Breast palpation: (units (unknown) date) normal palpation unknown) of the breasts, normal palpation of the (unknown) (no (unknown) (unknown) Cardio (units (unkno wn) date) unknown) (unknown) (no (unknown) (unknown) Chest (units (unkno wn) date) unknown) (unknown) (no (unknown) (unknown) Chief Complaint (units (unknown) date) unknown) (unknown) (no (unknown) (unknown) Chief Complaint: (units (unknown) date) Well-woman unknown) exam/Pap/Follow-up anxiety/depression (unknown) (no (unknown) (unknown) Clinical breast (units (unknown) date) exam, general unknown) physical exam, pelvic exam unremarkable. Pap (unknown) (no (unknown) (unknown) Cognition: normal (units (unknown) date) cognition unknown) (unknown) (no (unknown) (unknown) Confirmed (units (unkn own) date) 08/20/22] unknown) (unknown) (no (unknown) (unknown) Const (units (unkno wn) date) unknown) (unknown) (no (unknown) (unknown) : 1995 (units (unknown) date) Acct:[id number] unknown) (unknown) (no (unknown) (unknown) Date of Last (units (u nknown) date) Menstrual Period: unknown) 07/25/22 (unknown) (no (unknown) (unknown) Denies breast (units ( unknown) date) skin changes, unknown) Denies breast pain, Denies breast mass and Denies (unknown) (no (unknown) (unknown) Denies history of (units (unknown) date) abnormal Paps. unknown) , . Patient currently uses oral (unknown) (no (unknown) (unknown) Denies vaginal (units (unknown) date) odor unknown) (unknown) (no (unknown) (unknown) Depression Type: (units (unknown) date) major depressive unknown) disorder Major depression recurrence: (unknown) (no (unknown) (unknown) Depression (units (unk nown) date) unknown) (unknown) (no (unknown) (unknown) Dept at (units (unkno wn) date) . unknown) (unknown) (no (unknown) (unknown) Details: (units (unkno wn) date) unknown) (unknown) (no (unknown) (unknown) Diskus) 1 inh (units ( unknown) date) inhalation BID unknown) #180 ea 05/01/22 [Rx Confirmed 08/20/22] (unknown) (no (unknown) (unknown) Documented By: (units (unknown) date) Gustavo Díaz unknown) 08/20/22 1456 (unknown) (no (unknown) (unknown) Ears: hearing (units ( unknown) date) grossly normal unknown) bilaterally, TM's normal bilaterally and EAC's (unknown) (no (unknown) (unknown) Effort + (units (unkno wn) date) Inspection: normal unknown) respiratory effort (unknown) (no (unknown) (unknown) Exam (units (unkno wn) date) unknown) (unknown) (no (unknown) (unknown) External Female (units (unknown) date) Exam: normal unknown) external appearance (unknown) (no (unknown) (unknown) Extrem (units (unkno wn) date) unknown) (unknown) (no (unknown) (unknown) Eyes (units (unkno wn) date) unknown) (unknown) (no (unknown) (unknown) Family Practice (units (unknown) date) Office Visit unknown) (unknown) (no (unknown) (unknown) [facility] unknown) (unknown) (no (unknown) (unknown) GERD (units (unkno wn) date) (gastroesophageal unknown) reflux disease) (2020) (unknown) (no (unknown) (unknown) GI (units (unkno wn) date) unknown) (unknown) (no (unknown) (unknown) (units (unkno wn) date) unknown) (unknown) (no (unknown) (unknown) Gait: normal gait (units (unknown) date) unknown) (unknown) (no (unknown) (unknown) General: (units (o wn) date) appearance normal, unknown) both eyes and all related structures (unknown) (no (unknown) (unknown) General: (units (unkno wn) date) cooperative, unknown) healthy appearing and no acute distress (unknown) (no (unknown) (unknown) General: no (units (un known) date) rashes or lesions unknown) noted (unknown) (no (unknown) (unknown) General: normal (units (unknown) date) to inspection, unknown) full ROM and no edema (unknown) (no (unknown) (unknown) General: patient (units (unknown) date) alert, patient unknown) awake and patient oriented x3 (unknown) (no (unknown) (unknown) HENMT (units (unkno wn) date) unknown) (unknown) (no (unknown) (unknown) HPI (units (unkno wn) date) unknown) (unknown) (no (unknown) (unknown) Head: normal to (units (unknown) date) inspection unknown) (unknown) (no (unknown) (unknown) Health Management (units (unknown) date) reviewed with unknown) patient: Yes (unknown) (no (unknown) (unknown) Health Management (units (unknown) date) unknown) (unknown) (no (unknown) (unknown) Heart Sounds: S1 (units (unknown) date) normal, S2 normal, unknown) normal S1 and S2 and no murmurs (unknown) (no (unknown) (unknown) Height 172.72 cm (units (unknown) date) unknown) (unknown) (no (unknown) (unknown) Insomnia type: (units (unknown) date) unspecified unknown) Qualified Code(s): G47.00 - Insomnia, (unknown) (no (unknown) (unknown) Insomnia (units (unkno wn) date) unknown) (unknown) (no (unknown) (unknown) Inspection: (units (un known) date) normal to unknown) inspection (unknown) (no (unknown) (unknown) Intake Note: (units (u nknown) date) unknown) (unknown) (no (unknown) (unknown) Intake performed (units (unknown) date) by: Sabrina Carranza unknown) M (unknown) (no (unknown) (unknown) Intake (units (unkno wn) date) unknown) (unknown) (no (unknown) (unknown) Intake- Clincial (units (unknown) date) Staff unknown) (unknown) (no (unknown) (unknown) Irregular (units (unkn own) date) menstrual bleeding unknown) (10/2021) (unknown) (no (unknown) (unknown) Judgment: (units (unkn own) date) judgment good unknown) (unknown) (no (unknown) (unknown) Last Menstural (units (unknown) date) Cycle + Details unknown) (unknown) (no (unknown) (unknown) Loc: [facility] (units (unkno wn) date) unknown) (unknown) (no (unknown) (unknown) Loud snoring: (units ( unknown) date) Will refer to unknown) Sleep Medicine for consideration of sleep study. (unknown) (no (unknown) (unknown) Medical History (units (unknown) date) (Reviewed 08/24/22 unknown) @ 13:00 by JANAK Melendez) (unknown) (no (unknown) (unknown) Medications (units (un known) date) unknown) (unknown) (no (unknown) (unknown) Mental Status: (units (unknown) date) mental status unknown) grossly normal (unknown) (no (unknown) (unknown) Moderate (units (unkno wn) date) intermittent unknown) asthma (unknown) (no (unknown) (unknown) Moderate (units (unkno wn) date) persistent asthma unknown) (unknown) (no (unknown) (unknown) Mood: congruent (units (unknown) date) mood unknown) (unknown) (no (unknown) (unknown) Motor: muscle (units ( unknown) date) tone normal unknown) throughout (unknown) (no (unknown) (unknown) Mouth: oral (units (un known) date) mucosae normal and unknown) oropharynx normal (unknown) (no (unknown) (unknown) Neck mass: No (units ( unknown) date) unknown) (unknown) (no (unknown) (unknown) Neck (units (unkno wn) date) unknown) (unknown) (no (unknown) (unknown) Neck: normal (units (u nknown) date) visual inspection unknown) and no lymphadenopathy (unknown) (no (unknown) (unknown) Neuro (units (unkno wn) date) unknown) (unknown) (no (unknown) (unknown) No (units (unkno wn) date) supraclavicular or unknown) infraclavicular lymphadenopathy. (unknown) (no (unknown) (unknown) Nose: external (units (unknown) date) nose normal and unknown) nasal mucous membranes and turbinates normal (unknown) (no (unknown) (unknown) Nutritional (units (un known) date) Appearance: unknown) average body habitus (unknown) (no (unknown) (unknown) Orders (units (unkno wn) date) unknown) (unknown) (no (unknown) (unknown) Orders: (units (unkno wn) date) unknown) (unknown) (no (unknown) (unknown) Other: (units (unkno wn) date) unknown) (unknown) (no (unknown) (unknown) Oxygen Delivery (units (unknown) date) Method room air unknown) (unknown) (no (unknown) (unknown) PAP with reflex (units (unknown) date) HPV 08/20/22 unknown) Z00.00 - Encounter for general adult medical (unknown) (no (unknown) (unknown) PFSH (units (unkno wn) date) unknown) (unknown) (no (unknown) (unknown) PO DAILY #90 tabs (units (unknown) date) 06/18/22 [Rx unknown) Confirmed 08/20/22] (unknown) (no (unknown) (unknown) Palpation: soft, (units (unknown) date) no unknown) hepatosplenomegaly , no guarding, no hernias, no masses and (unknown) (no (unknown) (unknown) Patient endorses (units (unknown) date) loud snoring. She unknown) is not really sure about daytime fatigue, as (unknown) (no (unknown) (unknown) Patient reports (units (unknown) date) that she continues unknown) to do well on current Pristiq regimen as well (unknown) (no (unknown) (unknown) Patient would (units ( unknown) date) like to follow-up unknown) in the next 1-2 months to ensure stable on (unknown) (no (unknown) (unknown) Patient: (units (unkno wn) date) Elizabeth Chery unknown) MR#: [id number] (unknown) (no (unknown) (unknown) Pelvic Support: (units (unknown) date) normal unknown) (unknown) (no (unknown) (unknown) Penicillins (units (un known) date) Allergy (Unknown, unknown) Verified 08/20/22 14:56) (unknown) (no (unknown) (unknown) Percussion: (units (un known) date) normal to unknown) percussion (unknown) (no (unknown) (unknown) Plan (units (unkno wn) date) unknown) (unknown) (no (unknown) (unknown) Position Sitting (units (unknown) date) unknown) (unknown) (no (unknown) (unknown) Psych (units (unkno wn) date) unknown) (unknown) (no (unknown) (unknown) Pulse 80 (units (unkno wn) date) unknown) (unknown) (no (unknown) (unknown) Pulse Oximetry (units (unknown) date) (%) 98 unknown) (unknown) (no (unknown) (unknown) Pulse Source (units (u nknown) date) Monitor unknown) (unknown) (no (unknown) (unknown) Qualifiers: (units (un known) date) unknown) (unknown) (no (unknown) (unknown) ROS (units (unkno wn) date) unknown) (unknown) (no (unknown) (unknown) Rate: regular (units ( unknown) date) rate unknown) (unknown) (no (unknown) (unknown) Reason For Visit (units (unknown) date) unknown) (unknown) (no (unknown) (unknown) Referral Sleep (units (unknown) date) Medicine R06.83 - unknown) Snoring (unknown) (no (unknown) (unknown) Referrals (units (unkn own) date) unknown) (unknown) (no (unknown) (unknown) Reports as per (units (unknown) date) HPI, Denies unknown) genital lesions, Denies nipple discharge, Denies (unknown) (no (unknown) (unknown) Resp (units (unkno wn) date) unknown) (unknown) (no (unknown) (unknown) Respiration 16 (units (unknown) date) unknown) (unknown) (no (unknown) (unknown) Rhythm: regular (units (unknown) date) rhythm unknown) (unknown) (no (unknown) (unknown) Sensory Exam: no (units (unknown) date) sensory deficits unknown) noted (unknown) (no (unknown) (unknown) Signed By: (units (unk nown) date) <Electronically unknown) signed by Gustavo Díaz> (unknown) (no (unknown) (unknown) Signed (units (unkno wn) date) unknown) (unknown) (no (unknown) (unknown) Skin wound from (units (unknown) date) surgical incision unknown) (unknown) (no (unknown) (unknown) Skin (units (unkno wn) date) unknown) (unknown) (no (unknown) (unknown) Skin/Breast (units (un known) date) unknown) (unknown) (no (unknown) (unknown) Smoking Status: (units (unknown) date) Never smoker unknown) (unknown) (no (unknown) (unknown) Speculum Exam - (units (unknown) date) Cervix: normal unknown) appearance of the cervix (unknown) (no (unknown) (unknown) Speculum Exam - (units (unknown) date) Vagina: normal unknown) appearance of the vagina and normal vaginal (unknown) (no (unknown) (unknown) Speech: speech (units (unknown) date) normal unknown) (unknown) (no (unknown) (unknown) Status: Acute (units ( unknown) date) unknown) (unknown) (no (unknown) (unknown) Sulfa (units (unkno wn) date) (Sulfonamide unknown) Antibiotics) Allergy (Unknown, Verified 08/20/22 14:56) (unknown) (no (unknown) (unknown) Temp 97.5 F L (units ( unknown) date) unknown) (unknown) (no (unknown) (unknown) Temp Source (units (un known) date) Temporal Artery unknown) Scan (unknown) (no (unknown) (unknown) This note may (units ( unknown) date) have been all or unknown) partially generated using voice recognition (unknown) (no (unknown) (unknown) Thought Content: (units (unknown) date) normal unknown) (unknown) (no (unknown) (unknown) Thought Process: (units (unknown) date) normal unknown) (unknown) (no (unknown) (unknown) Throat: posterior (units (unknown) date) oropharynx normal unknown) (unknown) (no (unknown) (unknown) Thyroid: thyroid (units (unknown) date) normal unknown) (unknown) (no (unknown) (unknown) Tobacco + (units (unkn own) date) Substance Use unknown) (unknown) (no (unknown) (unknown) Tobacco Status (units (unknown) date) unknown) (unknown) (no (unknown) (unknown) Visit Reasons: (units (unknown) date) WWE/PAP/F/U MENTAL unknown) HEALTH (unknown) (no (unknown) (unknown) Vitals (units (unkno wn) date) unknown) (unknown) (no (unknown) (unknown) WWE/PAP and check (units (unknown) date) if anxiety gets unknown) worse with her periods. (unknown) (no (unknown) (unknown) Weight 102.965 kg (units (unknown) date) unknown) (unknown) (no (unknown) (unknown) albuterol sulfate (units (unknown) date) 90 mcg/actuation unknown) aerosol inhaler 2 puff inhalation Q4-6H PRN (unknown) (no (unknown) (unknown) alcohol intake: (units (unknown) date) never unknown) (unknown) (no (unknown) (unknown) as trazodone for (units (unknown) date) insomnia. No unknown) SI/HI. (unknown) (no (unknown) (unknown) axillae and no (units (unknown) date) axillary unknown) lymphadenopathy (unknown) (no (unknown) (unknown) axillae (units (unkno wn) date) unknown) (unknown) (no (unknown) (unknown) cholecalciferol (units (unknown) date) (vitamin D3) 25 unknown) mcg (1,000 unit) capsule 25 mcg PO DAILY (unknown) (no (unknown) (unknown) desvenlafaxine (units (unknown) date) succinate 100 mg unknown) tablet,extended release 24 hr (Pristiq) 100 mg (unknown) (no (unknown) (unknown) discharge (units (unkn own) date) unknown) (unknown) (no (unknown) (unknown) disorder, single (units (unknown) date) episode, moderate unknown) (unknown) (no (unknown) (unknown) episode severity: (units (unknown) date) moderate Qualified unknown) Code(s): F32.1 - Major depressive (unknown) (no (unknown) (unknown) examination (units (un known) date) without abnormal unknown) findings, Z12.4 - Encounter for screening for (unknown) (no (unknown) (unknown) famotidine 20 mg (units (unknown) date) tablet (Acid unknown) Design Quality Engineer (famotidine)) 20 mg PO DAILY #90 tabs (unknown) (no (unknown) (unknown) fluticasone 250 (units (unknown) date) mcg-salmeterol 50 unknown) mcg/dose blistr powdr for inhalation (Advair (unknown) (no (unknown) (unknown) gynecological (units ( unknown) date) symptoms unknown) otherwise. (unknown) (no (unknown) (unknown) have occurred. If (units (unknown) date) there are any unknown) questions, please contact the Medical Records (unknown) (no (unknown) (unknown) malignant (units (unkn own) date) neoplasm of cervix unknown) (unknown) (no (unknown) (unknown) may occur. (units (unk nown) date) Occasional unknown) wrong-word or 'sound-alike' substitutions may have (unknown) (no (unknown) (unknown) mental health. (units (unknown) date) unknown) (unknown) (no (unknown) (unknown) montelukast 10 mg (units (unknown) date) tablet 10 mg PO unknown) DAILY #90 tabs 05/28/22 [Rx Confirmed (unknown) (no (unknown) (unknown) nipple discharge (units (unknown) date) unknown) (unknown) (no (unknown) (unknown) nontender (units (unkn own) date) unknown) (unknown) (no (unknown) (unknown) norethindrone (units ( unknown) date) (contraceptive) unknown) 0.35 mg tablet (E[place]) 0.35 mg PO DAILY #84 tabs (unknown) (no (unknown) (unknown) norethindrone (units ( unknown) date) pill for unknown) contraception and is happy with this method. Menses is (unknown) (no (unknown) (unknown) normal (units (unkno wn) date) unknown) (unknown) (no (unknown) (unknown) occurred due to (units (unknown) date) the inherent unknown) limitations of voice recognition software. Please (unknown) (no (unknown) (unknown) performed; will (units (unknown) date) contact patient unknown) with results and recommendations. (unknown) (no (unknown) (unknown) prolapse (units (unkno wn) date) symptoms, Denies unknown) sexual dysfunction, Denies vaginal discharge and (unknown) (no (unknown) (unknown) read the note (units ( unknown) date) carefully and unknown) recognize, using context, where these substitutions (unknown) (no (unknown) (unknown) regimen. (units (unkno wn) date) unknown) (unknown) (no (unknown) (unknown) second hand (units (un known) date) exposure: No unknown) (unknown) (no (unknown) (unknown) shortness of (units (u nknown) date) breath or wheezing unknown) #17 grams 05/01/22 [Rx Confirmed 08/20/22] (unknown) (no (unknown) (unknown) single episode (units (unknown) date) Active/Remission unknown) status: currently active Major depression (unknown) (no (unknown) (unknown) size normal, (units (u nknown) date) consistency unknown) normal, normal palpation, uterine mobility normal, (unknown) (no (unknown) (unknown) software. (units (unkn own) date) Although every unknown) effort is made to edit content, sign erector errors (unknown) (no (unknown) (unknown) somewhat (units (unkno wn) date) irregular. unknown) Occasionally experiences bleeding between menses. Denies (unknown) (no (unknown) (unknown) substance use (units ( unknown) date) type: does not use unknown) (unknown) (no (unknown) (unknown) there a lot of (units (unknown) date) factors impacting unknown) energy level. (unknown) (no (unknown) (unknown) trazodone 50 mg (units (unknown) date) tablet 100 mg PO unknown) BEDTIME PRN sleep #180 tabs 07/02/22 [Rx (unknown) (no (unknown) (unknown) unspecified (units (un known) date) unknown) (unknown) (no (unknown) (unknown) uterine shape (units ( unknown) date) normal and unknown) non-tender Social History date description facility [id number] Never smoked tobacco (finding) [facility] [phone] Never smoked tobacco (finding) [facility] [phone] Never smoked tobacco (finding) [facility] Vital Signs No information.
[2022-09-25 11:48] LABS: BILIRUBIN,URINE NEGATIVE (NEGATIVE); ICTOTEST,URINE NEGATIVE
[2022-09-25 11:49] LABS: BACTERIA,URINE Few /HPF (None Seen); HCG UR QUAL NEGATIVE; RBC,URINE 0-5 /HPF (0-5); SQUAMOUS EPITHELIAL CELL,UR FEW Squamous (<= Few); WBC,URINE 0-3 /HPF (0-5)
[2022-09-25] MEDS ORDERED: FAMOTIDINE 20 MG/2 ML VIAL IVP STA (11:53)
[2022-09-25] MEDS ORDERED: ONDANSETRON 4 MG/2 ML VIAL IVP STA (11:53)
[2022-09-25 11:58] LABS: BASOPHILS % (AUTO) 0.2 %; EOSINOPHILS % (AUTO) 0.2 %; HCT - HEMATOCRIT 46.1 % (37.0-47.0); HGB - HEMOGLOBIN 15.6 g/dL (12.0-16.0); LYMPHOCYTES # (AUTO) 0.6 10^3/uL (1.5-3.5); LYMPHOCYTES % (AUTO) 3.5 %; MEAN CORPUSCULAR HEMOGLOBIN 30.6 pg (27.0-31.0); MEAN CORPUSCULAR HGB CONC 33.8 g/dL (32.0-36.0); MEAN CORPUSCULAR VOLUME 90.6 fL (81.0-99.0); MEAN PLATELET VOLUME 12.2 fL (7.9-10.8); MONOCYTES # (AUTO) 0.7 10^3/uL (0.0-1.0); MONOCYTES % (AUTO) 4.4 %; NEUTROPHILS # (AUTO) 14.5 10^3/uL (1.5-6.6); NEUTROPHILS % (AUTO) 91.1 %; PLT - PLATELET COUNT 245 10^3/uL (130-450); RED BLOOD COUNT 5.09 10^6/uL (4.20-5.40); RED CELL DISTRIBUTION WIDTH 12.6 % (12.0-15.0); WHITE BLOOD COUNT 15.9 x10^3/uL (4.8-10.8)
--- NOTE | 2022-09-25 12:18 | ED Physician Documentation ---
PD HPI NVD - Stated complaint Stated Complaint: vomiting,fever - Chief complaint Chief Complaint: Abd Pain - History obtained from History obtained from: Patient - Additonal information Additional information: Patient is a 27-year-old female presenting for evaluation of nausea, vomiting and loose stools for 36 hours. Patient reports she has not been able to keep anything down. She has a large container of Pedialyte and says she just threw up in the bathroom. She denies any family members with similar symptoms. She denies eating anything that could have triggered her symptoms. She does report concern for possible As she did have hyperemesis with her previous . She reports mild epigastric tenderness but otherwise denies abdominal pain.She denies dysuria, vaginal discharge or bleeding. She believes had a low- grade temperature of 100 F This morning. She did try to take Tylenol but believes she threw this back up. Review of Systems Constitutional: denies: Fever Nose: denies: Congestion Cardiac: denies: Chest pain / pressure Respiratory: denies: Dyspnea GI: reports: Abdominal Pain, Nausea, Vomiting, Diarrhea : denies: Dysuria Musculoskeletal: denies: Back pain Neurologic: denies: Headache PD PAST MEDICAL HISTORY - Present Medications Home Medications: Ambulatory Orders Medication Instructions Recorded Confirmed Famotidine [Pepcid] 20 mg ORAL DAILY 09/04/20 09/25/22 Montelukast [Singulair] 10 mg ORAL DAILY 09/04/20 09/25/22 Desvenlafaxine Succinate [Pristiq 100 mg PO 09/25/22 ER] Ondansetron Odt [Zofran] 4 mg TL Q6H PRN #10 tablet 09/25/22 - Allergies Allergies/Adverse Reactions: Allergies Allergy/AdvReac Type Severity Reaction Status Date / Time Penicillins Allergy Intermediate Rash Verified 09/25/22 11:08 Sulfa (Sulfonamide Allergy Intermediate Rash Verified 09/25/22 11:08 Antibiotics) PD ED PE NORMAL - General General: Alert and oriented X 3, No acute distress, Well developed/nourished - HEENT HEENT: Atraumatic - Neck Neck: Supple, no meningeal sign - Cardiac Cardiac: RRR, Strong equal pulses - Respiratory Respiratory: No respiratory distress, Clear bilaterally - Abdomen Abdomen: Normal bowel sounds, Soft, Non tender, Non distended - Back Back: No CVA TTP - Derm Derm: Warm and dry - Neuro Neuro: Normal speech Results - Vitals Vitals: Vital Signs - 24 hr 09/25/22 09/25/22 09/25/22 11:05 13:08 14:37 Temperature 36.7 C Heart Rate 95 59 L 84 Respiratory 16 18 18 Rate Blood Pressure 146/94 H 129/101 H 146/81 H O2 Saturation 96 98 97 Oxygen O2 Source Room air - Labs Labs: Laboratory Tests 09/25/22 09/25/22 09/25/22 11:19 11:50 12:11 WBC 15.9 H RBC 5.09 Hgb 15.6 Hct 46.1 MCV 90.6 MCH 30.6 MCHC 33.8 RDW 12.6 Plt Count 245 MPV 12.2 H Neut # (Auto) 14.5 H Lymph # (Auto) 0.6 L Ward # (Auto) 0.7 Eos # (Auto) 0.0 Baso # (Auto) 0.0 Absolute Nucleated RBC 0.00 Nucleated RBC % 0.0 Sodium 140 Potassium 3.6 Chloride 102 Carbon Dioxide 23 Anion Gap 15.0 H BUN 23 H Creatinine 0.6 Estimated GFR (MDRD) 121 Glucose 157 H Calcium 9.3 Total Bilirubin 1.4 H AST 24 ALT 28 Alkaline Phosphatase 62 Total Protein 7.7 Albumin 4.6 Globulin 3.1 Albumin/Globulin Ratio 1.5 Lipase 28 Urine Color DARK YELLOW Urine Clarity CLEAR Urine pH 8.0 H Ur Specific Dixon 1.015 Urine Protein 30 H Urine Glucose (UA) NEGATIVE Urine Ketones >=80 H Urine Occult Blood NEGATIVE Urine Nitrite NEGATIVE Urine Bilirubin NEGATIVE Urine Urobilinogen 0.2 (NORMAL) Ur Leukocyte Esterase NEGATIVE Urine RBC 0-5 Urine WBC 0-3 Ur Squamous Epith Cells FEW Squamous Urine Bacteria Few Ur Microscopic Review INDICATED Urine Culture Comments NOT INDICATED Urine HCG, Qual NEGATIVE PD MEDICAL DECISION MAKING - ED course Complexity details: reviewed results, re-evaluated patient ED course: Patient presenting for evaluation of 36-hour history of nausea, vomiting and reported diarrhea. Vital signs are stable. Abdominal exam is benign. Labs are reviewed. Patient did receive few rounds of medications for nausea and IV fluids with improvement in her symptoms. She is tolerating p.o. She is feeling much better and repeat abdominal exam remains benign. Do not think she has a surgical abdomen or needs a CT scan at this time.Patient counseled on concerning symptoms to return for. Departure - Departure Disposition: 01 Home, Self Care Clinical Impression: Nausea & vomiting Condition: Stable Instructions: ED Nausea Vomiting Prescriptions: Ondansetron Odt [Zofran] 4 mg TL Q6H PRN #10 tablet PRN Reason: Nausea / Vomiting Comments: You were evaluated for nausea and vomiting.Your urine did not show signs of infection and was also negative for . Your labs were overall stable. We did give you medication and IV hydration and your symptoms are improving. At this time I do not believe that you have a Surgical process or bacterial infection. I would recommend that you start with a clear liquid diet today and advance as tolerated to a more bland diet. I sent a prescription for an antinausea medication called Zofran to [facility] in [place].If you have any new or worsening symptoms and please consider return to the ER. Discharge Date/Time: 09/25/22 14:37
[2022-09-25 12:28] LABS: ALBUMIN 4.6 g/dL (3.2-5.5); ALBUMIN/GLOBULIN RATIO 1.5 (1.0-2.2); BILIRUBIN,TOTAL 1.4 mg/dL (0.2-1.0); CALCIUM 9.3 mg/dL (8.5-10.3); CREATININE 0.6 mg/dL (0.4-1.0); POTASSIUM 3.6 mmol/L (3.5-5.0); TOTAL PROTEIN 7.7 g/dL (6.7-8.2)
[2022-09-25] MEDS ORDERED: METOCLOPRAMIDE 10 MG/2 ML VIAL IVP STA (12:56)
[2022-09-25] MEDS ORDERED: diphenhydrAMINE INJ 50 MG/ML VIAL IVP STA (13:45)
[2022-09-25 14:37] VITALS: BP 146/81
== END 2022-09-25 14:37 | disposition home or self-care (01) ==
LOC: ED 11:00
DX: R11.2 Nausea with vomiting, unspecified (principal); R19.7 Diarrhea, unspecified; R10.13 Epigastric pain
CPT/HCPCS: 36415; 80053; 81001; 81025; 83690; 85025; 96361; 96374; 96375; 99282; 99285; J1200; J2765; 81003; 87086